=== PATIENT | female | born 1955 | race Caucasian/White ===

== ENCOUNTER 2018-07-19 08:00 | Outpatient (CLI) | payer MEDICAID ==
[2018-07-19 19:00] LABS: BILIRUBIN,URINE NEGATIVE (NEGATIVE); GLUCOSE, URINE (UA) NEGATIVE (NEGATIVE); KETONES,URINE (UA) NEGATIVE (NEGATIVE); LEUKOCYTE ESTERASE, URINE SMALL (NEGATIVE); NITRITE,URINE NEGATIVE (NEGATIVE); OCCULT BLOOD,URINE NEGATIVE (NEGATIVE); PH,URINE 5.5 PH (5.0-7.5); PROTEIN,URINE NEGATIVE (NEGATIVE); UROBILINOGEN,URINE 0.2 (NORMAL) E.U./dL (NORMAL)
[2018-07-19 19:13] LABS: CLARITY,URINE CLOUDY (CLEAR)
[2018-07-19 19:51] LABS: AMORPHOUS SEDIMENT,UR Moderate /LPF; BACTERIA,URINE Few /HPF (None Seen); SQUAMOUS EPITHELIAL CELL,UR FEW Squamous (<= Few)
== END 2018-07-19 23:59 | disposition home or self-care (01) ==
LOC: LAB.R 08:00
PROVIDERS: ATTEND Nurse Practitioner
DX: N39.0 Urinary tract infection, site not specified (principal)
CPT/HCPCS: 81001; 81003; 87086

== ENCOUNTER 2018-07-27 08:00 | Outpatient (CLI) | payer MEDICAID ==
[2018-07-27 19:32] LABS: BILIRUBIN,URINE NEGATIVE (NEGATIVE); GLUCOSE, URINE (UA) NEGATIVE (NEGATIVE); KETONES,URINE (UA) NEGATIVE (NEGATIVE); LEUKOCYTE ESTERASE, URINE NEGATIVE (NEGATIVE); NITRITE,URINE NEGATIVE (NEGATIVE); OCCULT BLOOD,URINE NEGATIVE (NEGATIVE); PH,URINE 5.5 PH (5.0-7.5); PROTEIN,URINE NEGATIVE (NEGATIVE); UROBILINOGEN,URINE 0.2 (NORMAL) E.U./dL (NORMAL)
[2018-07-27 19:33] LABS: CLARITY,URINE CLEAR (CLEAR)
== END 2018-07-27 23:59 | disposition home or self-care (01) ==
LOC: LAB.R 08:00
PROVIDERS: ATTEND Nurse Practitioner
DX: N39.0 Urinary tract infection, site not specified (principal)
CPT/HCPCS: 81001; 81003; 87086

== ENCOUNTER 2018-09-05 08:00 | Outpatient (CLI) | payer MEDICAID ==
[2018-09-05 20:06] LABS: BILIRUBIN,URINE NEGATIVE (NEGATIVE); GLUCOSE, URINE (UA) NEGATIVE (NEGATIVE); KETONES,URINE (UA) NEGATIVE (NEGATIVE); LEUKOCYTE ESTERASE, URINE NEGATIVE (NEGATIVE); NITRITE,URINE NEGATIVE (NEGATIVE); OCCULT BLOOD,URINE NEGATIVE (NEGATIVE); PH,URINE 5.5 PH (5.0-7.5); PROTEIN,URINE NEGATIVE (NEGATIVE); UROBILINOGEN,URINE 0.2 (NORMAL) E.U./dL (NORMAL)
[2018-09-05 20:07] LABS: CLARITY,URINE CLEAR (CLEAR)
== END 2018-09-05 23:59 | disposition home or self-care (01) ==
LOC: LAB.R 08:00
PROVIDERS: ATTEND Physician Assistant
DX: R30.0 Dysuria (principal)
CPT/HCPCS: 81001; 81003; 87086

== ENCOUNTER 2018-09-13 09:46 | Outpatient (CLI) | payer MEDICAID ==
[2018-09-13 12:54] LABS: BASOPHILS # (AUTO) 0.1 10^3/uL (0.0-0.1); BASOPHILS % (AUTO) 1.2 %; EOSINOPHILS # (AUTO) 0.1 10^3/uL (0.0-0.7); EOSINOPHILS % (AUTO) 2.1 %; HGB - HEMOGLOBIN 14.5 g/dL (12.0-16.0); LYMPHOCYTES # (AUTO) 2.6 10^3/uL (1.5-3.5); LYMPHOCYTES % (AUTO) 38.2 %; MEAN CORPUSCULAR HEMOGLOBIN 30.6 pg (27.0-31.0); MEAN CORPUSCULAR HGB CONC 33.4 g/dL (32.0-36.0); MEAN CORPUSCULAR VOLUME 91.6 fL (81.0-99.0); MEAN PLATELET VOLUME 7.8 fL (7.9-10.8); MONOCYTES # (AUTO) 0.7 10^3/uL (0.0-1.0); NEUTROPHILS # (AUTO) 3.4 10^3/uL (1.5-6.6); NEUTROPHILS % (AUTO) 48.5 %; PLT - PLATELET COUNT 392 10^3/uL (130-450); RED BLOOD COUNT 4.73 10^6/uL (4.20-5.40); WHITE BLOOD COUNT 6.9 x10^3/uL (4.8-10.8)
[2018-09-13 13:20] LABS: ALBUMIN 3.7 g/dL (3.2-5.5); ALBUMIN/GLOBULIN RATIO 1.1 (1.0-2.2); ALKALINE PHOSPHATASE 94 IU/L (42-121); ALT ALANINE AMINOTRANSFERASE 16 IU/L (10-60); AST ASPARTATE AMINOTRANSFERASE 25 IU/L (10-42); BILIRUBIN,TOTAL 0.6 mg/dL (0.2-1.0); BUN - BLOOD UREA NITROGEN 11 mg/dL (6-20); CALCIUM 9.4 mg/dL (8.5-10.3); CARBON DIOXIDE - CO2 23 mmol/L (21-32); CHLORIDE 106 mmol/L (101-111); CHOL/HDL RATIO 4.6 (<4.4); CHOLESTEROL 215 mg/dL; CREATININE 0.8 mg/dL (0.4-1.0); GFR - MDRD 73 (>89); GLUCOSE 102 mg/dL (70-100); HDL CHOLESTEROL 47 mg/dL; LDL CHOLESTEROL,CALCULATED 136 mg/dL; LDL/HDL RATIO 2.9 (<4.4); SODIUM 140 mmol/L (135-145); VLDL CHOLESTEROL 32 mg/dL
[2018-09-13 13:36] LABS: HB2 TOTAL 15.1 g/dL; HEMOGLOBIN A1C 0.53 g/dL; HEMOGLOBIN A1C % 5.4 % (4.6-6.2)
== END 2018-09-13 23:59 | disposition home or self-care (01) ==
LOC: LAB.WCP 09:46
PROVIDERS: ATTEND Physician Assistant
DX: Z00.00 Encounter for general adult medical examination without abnormal findings (principal); K50.90 Crohn's disease, unspecified, without complications; Z83.3 Family history of diabetes mellitus
CPT/HCPCS: 36415; 80053; 80061; 83036; 83721; 84443; 85025

== ENCOUNTER 2018-10-12 09:51 | Outpatient (CLI) | payer MEDICAID ==
--- NOTE | 2018-10-12 10:49 | Mammography Report ---
Reason: SCREENING MAMMO Procedure Date: 10/12/2018 Accession Number: [id number] / [id number] Procedure: MGN - Screening Mammo Dig Bilat CPT Code: FULL RESULT: EXAM: Screening Mammo Dig Bilat DATE: 10/12/2018 10:18 AM CLINICAL HISTORY: Screening TECHNIQUE: (B) - Bilateral CC and MLO views were obtained. COMPARISON: None PARENCHYMAL PATTERN: (A) - The breasts demonstrate scattered fibroglandular densities bilaterally. FINDINGS: There are no suspicious masses, calcifications, or areas of distortion. IMPRESSION: Negative examination. BI-RADS category 1. RECOMMENDATION: (ANNUAL) - Recommend routine annual screening mammography. BI-RADS CATEGORY: (1) - Negative. STANDARD QUALIFYING STATEMENTS: 1. This examination was not reviewed with the aid of Computer-Aided Detection (CAD). 2. A negative or benign imaging report should not preclude biopsy if clinically suspicious findings are present. 3. Dense breasts may obscure an underlying neoplasm. 4. This examination was reviewed without the aid of 3D breast imaging (tomosynthesis).
== END 2018-10-12 09:52 | disposition home or self-care (01) ==
LOC: DI.N 09:51
DX: Z12.31 Encounter for screening mammogram for malignant neoplasm of breast (principal)
CPT/HCPCS: 77067

== ENCOUNTER 2018-11-17 10:17 | Outpatient (CLI) | payer MEDICAID ==
--- NOTE | 2018-11-18 08:57 | DEXA Report ---
Reason: POSTMENOPAUSAL Procedure Date: 11/17/2018 Accession Number: [id number] / [id number] Procedure: DEX - Dexa Spine and/or Hip CPT Code: FULL RESULT: EXAM: Dexa Spine and/or Hip DATE: 11/17/2018 10:50 AM CLINICAL HISTORY: POSTMENOPAUSAL TECHNIQUE: Dual energy x-ray absorptiometry (DXA) was performed on a Studio System. Regions measured are the AP Spine, femoral neck, and if needed forearm. COMPARISON: None. In accordance with the International Society for Clinical Densitometry (ISCD) guidelines, data from previous exams may be reanalyzed using current recommendations and techniques. This is done to allow a more accurate basis for comparison with the current study. FINDINGS: The data for the lumbar spine is as follows: BMD (g/cm/cm) T-SCORE Z-SCORE REGION L1 0.950 -1.5 -0.3 L2 1.186 -0.1 1.0 L3 1.307 0.9 2.1 L4 1.339 1.2 2.3 TOTAL 1.210 0.2 1.4 NOTE: All evaluable vertebrae are used for classification The data for the hip is as follows: BMD (g/cm/cm) T-SCORE Z-SCORE REGION Neck 0.972 -0.5 0.7 TOTAL 1.059 0.4 1.3 NOTE: The femoral neck or total proximal femur, whichever is lowest, is used for classification. IMPRESSION: THE WHO CLASSIFICATION BASED ON THE INTERNATIONAL REFERENCE STANDARD IS NORMAL. THE FRACTURE RISK IS NOT INCREASED. RECOMMENDATION: Patients with diagnosis of osteoporosis or osteopenia should have regular bone mineral density assessment. For those eligible for Medicare, routine testing is allowed once every 2 years. Testing frequency can be increased for patients who have rapidly progressing disease or for those who are receiving medical therapy to restore bone mass. COMMENT: World Health Organization (WHO) definitions for osteoporosis and osteopenia: NORMAL BMD: T-score at -1.0 or higher, fracture risk is low OSTEOPENIA BMD: T-score between -1.0 and -2.5, fracture risk is increased. OSTEOPOROSIS BMD: T-score at -2.5 or lower, fracture risk is high. National Osteoporosis Foundation recommends: 1. Obtain adequate dietary calcium (at least 1200 mg per day) and vitamin D (400-800 international units per day). 2. Participate, as appropriate, in regular weightbearing and muscle-strengthening exercise. 3. Avoid tobacco use and reduce alcohol and caffeine intake. 4. For more detailed information see the website at www.NOF.org.
== END 2018-11-17 10:18 | disposition home or self-care (01) ==
LOC: DI 10:17
PROVIDERS: ATTEND Physician Assistant
DX: Z78.0 Asymptomatic menopausal state (principal)
CPT/HCPCS: 77080

== ENCOUNTER 2018-12-13 12:28 | Outpatient (CLI) | payer MEDICAID ==
--- NOTE | 2018-12-14 09:37 | CT Report ---
Reason: COCCYX PAIN Procedure Date: 12/13/2018 Accession Number: [id number] / [id number] Procedure: CT - PELVIS WO CPT Code: FULL RESULT: EXAM: CT BONY PELVIS WITHOUT CONTRAST EXAM DATE: 12/13/2018 12:44 PM. CLINICAL HISTORY: Coccyx pain. COMPARISON: ABDOMEN/PELVIS W/ 05/23/2015 2:52 PM. ABDOMEN/PELVIS W/ 12/31/2014 3:59 PM. TECHNIQUE: Thin-section axial images were acquired of the pelvis without contrast. Post-processing: Coronal and sagittal reformats. Other: None. In accordance with CT protocol optimization, one or more of the following dose reduction techniques were utilized for this exam: automated exposure control, adjustment of mA and/or KV based on patient size, or use of iterative reconstructive technique. FINDINGS: Bones: Severe left and moderate right facet joint arthrosis. Mild facet joint arthrosis. Sacroiliac Joints: No widening, erosions, or sclerosis. Symphysis Pubis: Unremarkable. Right Hip: The joint space is preserved. No calcified loose bodies. Left Hip: The joint space is preserved. No calcified loose bodies. Musculature: Normal. No fatty atrophy. Pelvic Cavity: Increased heterogeneous omental and mesenteric soft tissue left anterior pelvis. Differential considerations include carcinomatosis. This omental soft tissue has developed since the CT 05/23/2015. There is diffuse colon wall thickening suggestive of ulcerative colitis. Negative for diverticulitis. Small umbilical hernia 1.9 cm. Other: No lymphadenopathy. No free air or free fluid. The other visualized soft tissues are unremarkable. IMPRESSION: 1. Negative for sacrum/coccyx fracture or focal metastasis. 2. Increased left lower quadrant and anterior left pelvis omental soft tissue which is new as compared to the CT abdomen and pelvis 05/23/2015. Postsurgical changes versus carcinomatosis. RADIA
== END 2018-12-13 12:29 | disposition home or self-care (01) ==
LOC: DI 12:28
PROVIDERS: ATTEND Physician Assistant
DX: M53.3 Sacrococcygeal disorders, not elsewhere classified (principal)
CPT/HCPCS: 72192

== ENCOUNTER 2018-12-15 09:00 | Outpatient (CLI) | payer MEDICAID | END 2018-12-15 23:59 | disposition home or self-care (01) | LOC: LAB.R 09:00 | PROVIDERS: ATTEND Physician Assistant | DX: A04.72 Enterocolitis due to Clostridium difficile, not specified as recurrent (principal) | CPT/HCPCS: 87493 ==

== ENCOUNTER 2019-03-03 07:00 | Outpatient (CLI) | payer MEDICAID ==
[2019-03-03 13:36] LABS: BASOPHILS % (AUTO) 0.9 %; EOSINOPHILS % (AUTO) 0.6 %; HGB - HEMOGLOBIN 12.4 g/dL (12.0-16.0); LYMPHOCYTES # (AUTO) 1.9 10^3/uL (1.5-3.5); LYMPHOCYTES % (AUTO) 59.8 %; MEAN CORPUSCULAR HEMOGLOBIN 29.7 pg (27.0-31.0); MEAN CORPUSCULAR VOLUME 92.8 fL (81.0-99.0); MEAN PLATELET VOLUME 9.2 fL (7.9-10.8); MONOCYTES # (AUTO) 0.5 10^3/uL (0.0-1.0); MONOCYTES % (AUTO) 16.5 %; NEUTROPHILS # (AUTO) 0.7 10^3/uL (1.5-6.6); NEUTROPHILS % (AUTO) 21.9 %; PLT - PLATELET COUNT 195 10^3/uL (130-450); RED BLOOD COUNT 4.17 10^6/uL (4.20-5.40); RED CELL DISTRIBUTION WIDTH 13.5 % (12.0-15.0); WHITE BLOOD COUNT 3.2 x10^3/uL (4.8-10.8)
== END 2019-03-03 23:59 | disposition home or self-care (01) ==
LOC: LAB.WCP 07:00
PROVIDERS: ATTEND Physician Assistant Medical
DX: C56.9 Malignant neoplasm of unspecified ovary (principal)
CPT/HCPCS: 36415; 85025

== ENCOUNTER 2019-03-24 10:00 | Outpatient (CLI) | payer MEDICAID ==
[2019-03-24 18:39] LABS: BASOPHILS % (AUTO) 0.5 %; EOSINOPHILS % (AUTO) 0.3 %; HGB - HEMOGLOBIN 10.4 g/dL (12.0-16.0); LYMPHOCYTES # (AUTO) 2.1 10^3/uL (1.5-3.5); MEAN CORPUSCULAR HEMOGLOBIN 29.9 pg (27.0-31.0); MEAN CORPUSCULAR HGB CONC 32.5 g/dL (32.0-36.0); MEAN PLATELET VOLUME 9.2 fL (7.9-10.8); MONOCYTES # (AUTO) 0.6 10^3/uL (0.0-1.0); MONOCYTES % (AUTO) 15.8 %; NEUTROPHILS # (AUTO) 1.2 10^3/uL (1.5-6.6); NEUTROPHILS % (AUTO) 30.1 %; PLT - PLATELET COUNT 309 10^3/uL (130-450); RED BLOOD COUNT 3.48 10^6/uL (4.20-5.40); RED CELL DISTRIBUTION WIDTH 15.4 % (12.0-15.0); WHITE BLOOD COUNT 3.9 x10^3/uL (4.8-10.8)
== END 2019-03-24 23:59 | disposition home or self-care (01) ==
LOC: LAB.WCP 10:00
PROVIDERS: ATTEND Nurse Practitioner Women's Health
DX: C56.9 Malignant neoplasm of unspecified ovary (principal)
CPT/HCPCS: 36415; 85025

== ENCOUNTER 2019-08-04 09:10 | Outpatient (CLI) | payer MEDICAID | END 2019-08-04 23:59 | disposition home or self-care (01) | LOC: LAB.WCP 09:10 | PROVIDERS: ATTEND Internal Medicine | DX: K52.9 Noninfective gastroenteritis and colitis, unspecified (principal) | CPT/HCPCS: 81599; 87506 ==

== ENCOUNTER 2019-08-08 09:51 | Outpatient (CLI) | payer MEDICAID | END 2019-08-08 23:59 | disposition home or self-care (01) | LOC: LAB.R 09:51 | PROVIDERS: ATTEND Physician Assistant | DX: A04.72 Enterocolitis due to Clostridium difficile, not specified as recurrent (principal); K52.9 Noninfective gastroenteritis and colitis, unspecified | CPT/HCPCS: 83993; 87493 ==

== ENCOUNTER 2019-09-20 11:00 | Outpatient (CLI) | payer MEDICAID ==
--- NOTE | 2019-09-20 19:01 | CONSULTATION NOTE ---
Palliative Care Consultation - Referral Referring Provider: Jessica St PA-C Time of Visit: Referral setting: Home Referral Reason: Recurrent Ovarian Ca/Goals of Care - Information Sources Records reviewed: Previous records reviewed History/Review of Systems obtained from: Patient Exam limitations: No limitations - History of Present Illness Brief History of Present Illness: This is a rusty 64-year-old woman who has had a long history of Crohn's disease, treated with Humira up until her cancer diagnosis. She been having increasing abdominal pain, and without significant findings on colonoscopy. 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 She has since undergone in April 2019, a debulking surgery which included exploratory laparotomy, omentectomy, bilateral salpingo-oophorectomy, and argon beam ablation. She did complete carboplatinum and paclitaxel, and did fairly well, no residual peripheral neuropathy, only persistant nausea and fatigue. She most recently was started on a parp inhibitor, niraparib this last week, has had continued nausea in am and fatigue, and intermittent headaches. Patient overall is still having moderate symptom burden, she has pain 5 out of 10, describes this in her left upper quadrant, this is been fairly persistent through her experience with her cancer. Of note she does have a lymph node on the gastric curvature 1.3 x 1.1 cm as well as multiple known peritoneal implants. There is no fluctuation, and pain levels, She has taken oxycodone in the past, did not find this effective, though I suspect it was not at a high enough dose, she is currently trying tramadol, this is a new prescription for her. 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 She is taking her niraparib at bedtime. Patient does understand her treatment is palliative in nature, she is unclear exactly her prognosis, but has done some "research". We did discuss in the context of the new landscape with parp inhibitors, it is extending the curve in some patients for not only impact on quantity of life, but quality as well. She has done very little prep work as far as advanced care planning, we initiated discussion in this context today. Medical/Surgical History - Past Medical History Cardiovascular: reports: None Respiratory: reports: Shortness of breath Neuro: Headaches Endocrine/Autoimmune: reports: None GI: reports: Colon polyps, C.difficile, Chronic diarrhea, Hemorrhoids, Crohn's disease COMMERCIAL PILOT: reports: Ovarian cancer : reports: None HEENT: reports: None Psych: reports: Depression Musculoskeletal: reports: Rheumatoid arthritis, Chronic back pain Derm: reports: None MRSA Hx?: No - Past Surgical History General: reports: Colonoscopy /COMMERCIAL PILOT: reports: Tubal ligation, Hysterectomy, Oophrectomy, Other (debulking) Cardiovascular: reports: Other (portacath) HEENT: reports: Tonsil/Adenoidectomy - Substance History Use: Uses substance without health or social issues: NONE Social History - Living Situation Living arrangement: At home Living Situation: With spouse/s.o. Support System: Patient lives at home with her significant other Willie Cowan, they have been together for 15 years. They have a small forearm. She does have a son in [place], and has a sister Amy who is been very supportive and has stage for her through her chemo regimens. She also has a sister who is an RN down at [employer] [facility] [employer] and is support for her as well. 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 Family History - Family History Family History: Mother: (mother at 71; dad at 85), Asthma, Cancer (lung cancer), Father: , CAD, Cancer, COPD/Emphysema Medications/Allergies - Medications Home Medications: Ambulatory Orders Medication Instructions Recorded Confirmed Multivitamin [Multivitamins] 1 cap PO DAILY 08/16/15 09/21/19 Zolpidem [Ambien] 5 mg PO QPM 09/21/19 09/21/19 Acetaminophen [Tylenol] 650 mg PO Q8HR PRN 09/22/19 09/22/19 Niraparib Tosylate [Zejula] 300 mg PO QPM 09/22/19 09/22/19 Ondansetron [Zuplenz] 4 mg PO Q8HR PRN 09/22/19 09/22/19 Prochlorperazine Maleate 10 mg PO Q6HR PRN 09/22/19 09/22/19 Senna [Senokot] 8.6 mg PO BID PRN 09/22/19 09/22/19 Sertraline HCl 200 mg PO DAILY 09/22/19 09/22/19 polyethylene glycoL 3350 [Miralax] 17 gm PO DAILY PRN 09/22/19 09/22/19 traMADol [Ultram] 50 mg PO Q4HR PRN 09/22/19 09/22/19 - Allergies Allergies/Adverse Reactions: Allergies Allergy/AdvReac Type Severity Reaction Status Date / Time No Known Drug Allergies Allergy Verified 03/10/15 05:43 Review of Systems - Constitutional Constitutional: reports: Fatigue, Night sweats, Weight loss (about 20 pounds 157-163 current fluctuation) - Eyes Eyes: reports: Vision loss, Corrective lenses - Ears, Nose & Throat Ears, Nose & Throat: reports: Dry mouth. denies: Mouth lesions - Cardiovascular Cardiovascular: reports: Decr. exercise tolerance. denies: Edema - Respiratory Respiratory: reports: SOB with exertion. denies: SOB at rest - Gastrointestinal Gastrointestinal: reports: Abdominal pain, Constipation (with pain meds), Diarrhea (baseline related to crohns), Nausea (persistant worse in am), Good appetite. denies: Vomiting, Reflux/heartburn - Genitourinary Genitourinary: denies: Incontinence - Musculoskeletal Musculoskeletal: reports: Muscle weakness - Integumentary Integumentary: reports: Dryness, Hair changes (alopecia) - Neurological Neurological: reports: Headache (intermittent few times a week), Memory problems (self report). denies: Numbness - Psychiatric Psychiatric: reports: Depression (currently treated). denies: Anxiety - Endocrine Endocrine: denies: Diabetes type 2, Hypothyroidism - Hematologic/Lymphatic Hematologic/Lymphatic: reports: Anemia. denies: Blood clots, Recurrent infections - All Other Systems All Other Systems: reports: Reviewed and negative Physical Exam - Vital Signs Temperature: 96.5 C Pulse Rate: 96 Respiratory Rate: 18 O2 Saturation: 97 (ra @ rest) Blood Pressure: 112/72 - Physical Exam General Appearance: positive: No acute distress, Alert Eyes Bilateral: positive: Normal inspection ENT: positive: No signs of dehydration. negative: Oral lesions Neck: positive: Trachea midline Cardiovascular: positive: Regular rate & rhythm Respiratory: positive: No respiratory distress, Breath sounds nml Abdomen: positive: Soft, Tenderness. negative: Taut Skin: positive: Pallor, Dryness, Other (alopecia) Extremities: positive: Full ROM, Nml appearance, No pedal edema Neurologic/Psychiatric: positive: Oriented x3, Mood/affect nml Palliative Care - POLST Patient has POLST: No POLST Status: Full Code (introduced the POLST) Pain: Pain unchanged, Location (persistent left upper quadrant; intermittent use of tramadol) Tiredness/Fatigue: Moderate (4-6) Drowsiness/Sedation: Mild (1-3) Nausea: Moderate (4-6) Anorexia: None Dyspnea: None Depression: None Anxiety: None Feelings of wellbeing/Perceived Quality of Life: Good, Acceptable, Improved Sleep: Variable sleep pattern (uses sleep aids) Constipation: Intermittent constipation (new with opioids) Performance Status: Patient has noticed worsening fatigue, and poor activity tolerance. She is able to manage her own ADLs, and some gardening. She would like to have little more energy, but does recognize this may be her "new normal." - Palliative Care Discussion: Patient does recognize the seriousness of her illness, she understands her prognosis is most likely measured in months to years. She has not really embarked on any kind of advanced care planning, she does have a complex living situation and that she and her partner are not . She has a rusty supportive family, but as with most families, there are complexities. She does feel supported, but is enjoying some quiet time. Her sister has been there to help support her through her chemotherapy. We did discuss in the context of what is most important as a priority, would recommend and given her a form for D [employer]. Given the complexity of her estate planning, would recommend she get a consultation sooner than later, and we did introduce what her concerns were regarding living with serious illness and end-of-life. She would hope at end-of-life she was able to have a at home with family support. She currently is hoping for better quality of life, she does present with moderate symptom burden, counseling provided regarding the role of palliative care and assisting with support of these goals. She has appropriate anxiety regarding living with serious illness, and concerns for progressive decline. 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 Patient is currently on parp inhibitor, which is new for her. She presents with moderate symptom burden, good functional status, and appropriate anxiety regarding living with serious illness. Palliative care to provide support for pain and symptom management and anticipatory guidance. Recommendations/Counseling Done: 1. Pain of neoplastic origin. Patient has been trialed on oxycodone, she did not perceive it as effective. Most likely was on too low of a dose, she is currently trialing tramadol. Would like to continue this, but we did discuss and provided counseling regarding principles of pain management, if patient has continuous persistent pain, would most likely benefit from a longer acting medication. If she will be taking for Aloxi and or 4 tramadol in 24 hours, would be appropriate to transition her to fentanyl 12 mcg patch. She is somewhat adverse to pills, and this may be a attractive option for her. We will continue to monitor her pain and consider in the future. 2. Constipation. This is opioid induced, patient most often has loose/diarrhea stool secondary to her long-term Crohn's disease. Counseling provided regarding concerns for high risk for obstruction, need to have a regular soft BM daily. Provided counseling regarding MiraLAX as "mesh", and senna as "push", teaching given for titration. 3. Nausea. This is been fairly persistent to her chemotherapy, currently taking her Parp inhibitor at bedtime. Her most persistent/acute time is in a.m. We did discuss taking her prochlorperazine, CBC/THC in juice (dislikes taste) at bedtime and ondansetron in a.m. She has had no vomiting. We will try and change of her antiemetic regimen to see if can have better control and minimize medications. 4. Fatigue. This is most likely multifactorial. We did discuss in the context if taking the prochlorperazine at bedtime, and not taking in a.m. may help with this. She is able to pace her activities, we will continue to monitor. Encourage her to continue though to walk and keep active. 5. Anxiety. Patient expressing normal feelings of grief and loss, concerns for the future, counseling provided to normalize. 6. Advanced care planning. Introduced advanced care planning documents, ways to prepare for end-of-life, as well as addressed questions and concerns regarding the continuum of care. Time Spent: 75 minutes with greater than 50% of this done in counseling regarding pain and symptom management, goals of care, anticipatory guidance, role of palliative care and introduction for setting of rapport
== END 2019-09-20 11:01 | disposition home or self-care (01) ==
LOC: PC 11:00
PROVIDERS: ATTEND Nurse Practitioner Adult Health
DX: Z51.5 Encounter for palliative care (principal); G89.3 Neoplasm related pain (acute) (chronic); F41.9 Anxiety disorder, unspecified; K50.90 Crohn's disease, unspecified, without complications; K59.03 Drug induced constipation; T40.2X5A Adverse effect of other opioids, initial encounter; R53.83 Other fatigue; R11.0 Nausea; T45.1X5A Adverse effect of antineoplastic and immunosuppressive drugs, initial encounter; C79.9 Secondary malignant neoplasm of unspecified site; C56.9 Malignant neoplasm of unspecified ovary; Z79.899 Other long term (current) drug therapy; Z79.891 Long term (current) use of opiate analgesic
CPT/HCPCS: 99345

== ENCOUNTER 2019-10-04 15:38 | Outpatient (CLI) | payer MEDICAID ==
--- NOTE | 2019-10-04 15:54 | CONSULTATION NOTE ---
Palliative Care Follow Up - Referral Referring Provider: Jessica St PA-C Time of Visit: 3085-1401 Referral setting: Home Referral Reason: Anxiety/Dyspnea/Recurrent Ovarian CA - Information Sources Records reviewed: Previous records reviewed History/Review of Systems obtained from: Patient Exam limitations: No limitations - History of Present Illness Update Brief HPI Update: This is a rusty 64-year-old woman who has a long history of Crohn's disease, treated with Humira up until her cancer diagnosis. She been having increasing abdominal pain and without significant findings on colonoscopy 10/2018. 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 She did complete carboplatinum and paclitaxel, did fairly well with no residual peripheral neuropathy, only persistent nausea and fatigue. She has most recently been started on parp inhibitor, niraparib this last month, and had been having some difficulty with nausea and fatigue and intermittent headaches when last seen on 09/20/2019. Patient had been having left upper quadrant pain, this is since resolved. She has not needed tramadol for a week and a half. Of note she does have a lymph node on the gastric curvature 1.3 x 1.1 cm well as multiple known peritoneal implants where pain had manifested previously. She has developed over the last week and a half, increasing shortness of breath, poor activity tolerance, reports over the last several days having increased anxiety and "panic attacks". Where she has had to stop and take frequent rest periods, has had worsening hot flashes, and has felt poorly overall without any identified underlying etiology. On exam what is of concern is her baseline pulse rate is about 108, her sats are 98% at rest, blood pressure 132/84. Did have her walk about 50 feet, pulse went up to 132, sats down to 92%, significantly increased respiratory effort and discomfort, as well as it took 3 to 4 minutes to recover. Patient's baseline activity is been able to ambulate without any problems, work in her yard and garden, though had needed frequent rest periods and had fatigue, nothing to this severity. Patient's breath sounds are clear, no crackles wheezes or rhonchi. Patient's most recent labs without any increase in anemia, but did drop to were her platelets 57,000. Social History - Living Situation Living arrangement: At home Living Situation: With spouse/s.o. Support System: Patient lives on [place], she has lots of gardening, and land to attend to. She is currently retired, she lives with her significant other. 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 Medications/Allergies - Medications Home Medications: Ambulatory Orders Medication Instructions Recorded Confirmed Multivitamin [Multivitamins] 1 cap PO DAILY 08/16/15 10/04/19 Zolpidem [Ambien] 5 mg PO QPM 09/21/19 10/04/19 Acetaminophen [Tylenol] 650 mg PO Q8HR PRN 09/22/19 10/04/19 Niraparib Tosylate [Zejula] 300 mg PO QPM MDD HOLD 10/0209/22/19 10/04/19 Ondansetron [Zuplenz] 4 mg PO Q8HR PRN 09/22/19 10/04/19 Prochlorperazine Maleate 10 mg PO Q6HR PRN 09/22/19 10/04/19 Senna [Senokot] 8.6 mg PO BID PRN 09/22/19 10/04/19 Sertraline HCl 150 mg PO DAILY MDD tapering off 09/22/19 10/04/19 polyethylene glycoL 3350 [Miralax] 17 gm PO DAILY PRN 09/22/19 10/04/19 traMADol [Ultram] 50 mg PO Q4HR PRN 09/22/19 10/04/19 Alprazolam [Xanax] 0.25 mg PO Q6HR PRN MDD 3 tabs 10/04/19 10/04/19 Venlafaxine ER [Effexor ER] 37.5 mg PO DAILY MDD start with 10/04/19 10/04/19 sertraline taper - Allergies Allergies/Adverse Reactions: Allergies Allergy/AdvReac Type Severity Reaction Status Date / Time No Known Drug Allergies Allergy Verified 03/10/15 05:43 Review of Systems - Constitutional Constitutional: reports: Fatigue (worsening; poor activity tolerance), Weakness, Weight stable - Ears, Nose & Throat Ears, Nose & Throat: reports: Nosebleeds (has had for several months when mowing lawn mostly), Postnasal drainage - Cardiovascular Cardiovascular: reports: Palpitations, Lightheadedness, Exertional dyspnea, Decr. exercise tolerance - Respiratory Respiratory: reports: SOB at rest, SOB with exertion. denies: Cough, Sputum production, Wheezing - Gastrointestinal Gastrointestinal: reports: Nausea (better with rescheduling of antiemetics), Good appetite. denies: Abdominal pain, Constipation (resolved with implementation of miralax) - Musculoskeletal Musculoskeletal: reports: Muscle weakness - Integumentary Integumentary: reports: Pruritis (new symptom), Dryness - Neurological Neurological: reports: General weakness, Memory problems ("chemo brain"; no issues noted on exam) - Psychiatric Psychiatric: reports: Anxiety (reports panic attacks; worsening up 8 x a day) - Endocrine Endocrine: reports: Intolerance to cold (worsening) - Hematologic/Lymphatic Hematologic/Lymphatic: reports: Anemia (stable), Other (new thrombocytopenia;) - All Other Systems All Other Systems: reports: Reviewed and negative Physical Exam - Vital Signs Temperature: 97.0 C Pulse Rate: 108 (activity 132) Respiratory Rate: 18 (28) O2 Saturation: 98 (92 amb 50 ft) Blood Pressure: 132/84 - Physical Exam General Appearance: positive: Alert, Mild distress, Anxious Eyes Bilateral: positive: Normal inspection ENT: positive: No signs of dehydration. negative: Pharyngeal erythema, Oral lesions Neck: positive: Trachea midline Cardiovascular: positive: Tachycardia Respiratory: negative: No respiratory distress (increase respiratory effort and breathlessness with min. activity), Wheezes, Rales, Rhonchi Abdomen: positive: Non-tender, Soft Skin: positive: Pallor, Dryness, Pruritis. negative: Rash Extremities: negative: No pedal edema Neurologic/Psychiatric: positive: Oriented x3, Mood/affect nml, Weakness (worsening/new) Palliative Care - POLST Patient has POLST: No POLST Status: DNR (discussed patient's wishes; POLST to be completed but with s/o input first; DNAR/Selected tx/ab for symptom management/no medical nutrition) Pain: No pain, Pain improved Tiredness/Fatigue: Severe (7-10) Drowsiness/Sedation: Moderate (4-6) Nausea: Mild (1-3) (improved) Anorexia: None Dyspnea: Severe (7-10) (with activity; manageable at rest but worsening over week) Depression: Mild (1-3) Anxiety: Severe (7-10) (reports new panic attacks;) Feelings of wellbeing/Perceived Quality of Life: Fair, Acceptable Sleep: Sleeps well Constipation: Yes, Managed Performance Status: Patient's baseline, is usually independent in ADLs. She has had to slow down her usual very active schedule. This last week and a half she has had severe deterioration in her activity tolerance, with frequent rest periods with any kind of ambulation, has found this very exasperating and a fairly sudden change. - Palliative Care Discussion: Patient does understand the seriousness of her illness, that her treatment is palliative in nature. She is hoping for the best, but also is somewhat realistic. She did go through end-of-life care with her mother and father, does not want to extend her suffering or put her family through unnecessary burdens. She did fill out her DPOAE, with wrong her as though is primary [phone]. She has her sisters as backup. She has been working out 5 wishes, we did discuss in context of these decisions that it is information that is most helpful for those who are D POA and may need to assist with decision-making. Patient is quite clear she would want to be a DNR R, introduced and reviewed the POLST. After much discussion, she feels it would meet her goals to have DNA R/selective treatments. She would accept intervention for reversible conditions, but does not want to in the hospital or have prolong suffering. She will talk this over with Willie, and we can completed at our next meeting. She does know she wants to be cremated, was able to have some of these conversations with her family and S/O. Introduced [facility] [employer] [facility] [employer] as a resource particularly in the context of financial stressors. Patient is having some acute signs, but is finding overall though it complicated to adjust to a "new normal". She does plan to talk to her oncologist, furthermore about prognostication. We did discuss in the context of the new world, with PA RP inhibitors we do not often have good data, because it has been good data in extending quantity as well as improving quality of life. 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 She is currently on a PA RP inhibitor, which is on hold related to her thrombocytopenia. She presents today with concern for differential diagnosis including PE, pneumonitis, her concerns for cardiac issues with her acute onset of symptomology. Palliative care to continue to provide support for pain and symptom management and anticipatory guidance. Recommendations/Counseling Done: 1. Dyspnea. This is multifactorial, concern and patient's high risk for sequela of PE, also noted side effect of PA RP inhibitors his pneumonitis. This is a fairly acute change from last week as far as her tachycardia, dyspnea, and poor activity tolerance. Did reach out to oncology team, spoke with both RN and PA, in agreement to send her in for evaluation. Patient prefers to go [facility], report was called to ED in preparation for follow-up. 2. Anxiety. This may be exacerbated by her current underlying condition. We did discuss though in the context of looking at treating this, can switch from her sertraline to venlafaxine. She is quite distressed with these "panic attacks", will await outcome of ED visit, but also consider short-term Xanax 0.25 mg until transition to new medication completed for rescue dosing. We will proceed with planned depending on findings this evening. 3. Pain of neoplastic origin. Patient's pain is actually resolved, she is quite pleased with this. She has not needed to be on the tramadol for over a week and a half, will continue to monitor. 4. Nausea. This is been fairly persistent in her chemotherapy, we did rearrange some of her antiemetic approach. She is taking ondansetron in the a.m., and prochlorperazine at night with good effect. 5. Constipation. Patient's current bowel program with the addition of MiraLAX has improved her management. She is quite pleased, and no further issues this last couple weeks. 6. Advanced care planning. Patient did complete her D POA, counseling discussion regarding 5 wishes and living will, also recommended complete her well if she is not as well as financial D POA. We also discussed plans. Counseling provided regaining the POLST, she will discuss with her S/O and we will completed next visit.Her goals remain though to focus on quality of life, spending time with friends and family, and end-of-life a comfortable respectful at home. Patient will continue on treatment until no longer feels of benefit, currently even with side effects, is still engaged in getting both quantity and quality of life out of her treatment regimen. Time Spent: 60 minutes with greater than 50% of this done in counseling regarding goals of care, addressing symptom management, coordination of care with her oncology team and anticipatory guidance
== END 2019-10-04 15:39 | disposition home or self-care (01) ==
LOC: PC 15:38
PROVIDERS: ATTEND Nurse Practitioner Adult Health
DX: Z51.5 Encounter for palliative care (principal); R53.83 Other fatigue; R11.0 Nausea; T45.1X5D Adverse effect of antineoplastic and immunosuppressive drugs, subsequent encounter; G89.3 Neoplasm related pain (acute) (chronic); R53.1 Weakness; K59.00 Constipation, unspecified; R06.02 Shortness of breath; R00.0 Tachycardia, unspecified; F41.9 Anxiety disorder, unspecified; C56.9 Malignant neoplasm of unspecified ovary; Z79.899 Other long term (current) drug therapy
CPT/HCPCS: 99350

== ENCOUNTER 2019-10-18 15:30 | Outpatient (CLI) | payer MEDICAID ==
--- NOTE | 2019-10-18 18:09 | CONSULTATION NOTE ---
Palliative Care Follow Up - Referral Referring Provider: Jessica St PA-C Time of Visit: 1231-1117 Referral setting: Home Referral Reason: Anxiety/Recurrent Ovarian Ca - Information Sources Records reviewed: Previous records reviewed History/Review of Systems obtained from: Patient Exam limitations: No limitations - History of Present Illness Update Brief HPI Update: This is a rusty 64-year-old woman with stage IIIc high-grade serous fallopian tube cancer, who has undergone 04/2019 a debulking surgery which included exploratory laparotomy, omentectomy, bilateral salpingo-oophorectomy, and argon beam ablation. She has completed carboplatinum and paclitaxel, and had been started on a parp inhibitor, unfortunately caused a significant drop in her platelets. She had received on 10/08 a platelet infusion, with increased from 12,000, 2 on 611 106,000, but she remains quite anxious regarding this. It is c urrently on hold, and she is due to have CT scan 11/01 as well as labs and follow- up with oncology to decide next steps. Unfortunately in the meantime, when I saw her last time she is having significan t shortness of breath, tachycardia, and given concern for PE was sent to the ED. It did not show any significant findings other than a precipitous drop in her platelet count, recommendation for echo which unfortunately still has not happened, as well as an elevated d-dimer. Her CT scan showed no pulmonary embolus but fatty atrophy of the cardiac, but this had been redemonstrated from May. Patient today reports she has had intermittent chest discomfort, but has not been sustained. Above and right around sternum, unclear GERD or cardiac in nature. Call to follow-up on echo, with more urgent need. Other concern is patient did have 2 or 3 days of lower extremity swelling, particularly in the right, unfortunately on today's exam there might be a little swelling in her ankle, but no residual. My understanding that she was to get a duplex lower extremity to rule out any other concerns for her high d-dimer, but this has not happened as well. I did call from the home, to speak with PCP Jessica St PA-C, she is in agreement to put this through urgently, and update given on concerns. Patient has been counseled if recurrent lower extremity swelling, pain and legs or calf, recurrent chest pain or discomfort, or worsening symptoms of concern she is to access the ED. We will go ahead and get labs given her concerns for her platelets, as well as a repeat d-dimer. Patient has been titrated from sertraline to Effexor, she is just finishing her she has found the Xanax quite helpful in the context of preventing further panic attacks. She is taking 1 in the morning, and about a half in the afternoon. Her pain of her left upper quadrant had resolved, now reports is starting to have increased discomfort and pressure there as well. She is not taking her niraparib currently, so nausea is been improved. She does continue with severe fatigue, activity intolerance, and intermittent breathlessness though not as bad as 2 weeks ago. Social History - Living Situation Living arrangement: At home Living Situation: With spouse/s.o. Support System: Patient lives at home with her significant other. Her sister is coming back to provide ongoing support for both transportation and psychosocial. She currently is independent, and is quite frustrated with her inability to do much with her activity intolerance. Patient was quite active in the gardening community, and misses being able to do more. Medications/Allergies - Medications Home Medications: Ambulatory Orders Medication Instructions Recorded Confirmed Multivitamin [Multivitamins] 1 cap PO DAILY 08/16/15 10/18/19 Zolpidem [Ambien] 5 - 10 mg PO QPM 09/21/19 10/18/19 Acetaminophen [Tylenol] 650 mg PO Q8HR PRN 09/22/19 10/18/19 Niraparib Tosylate [Zejula] 300 mg PO QPM MDD HOLD 10/0209/22/19 10/18/19 Ondansetron [Zuplenz] 4 mg PO Q8HR PRN 09/22/19 10/18/19 Prochlorperazine Maleate 10 mg PO Q6HR PRN 09/22/19 10/18/19 Senna [Senokot] 8.6 mg PO BID PRN 09/22/19 10/18/19 polyethylene glycoL 3350 [Miralax] 17 gm PO DAILY PRN 09/22/19 10/18/19 traMADol [Ultram] 50 mg PO Q4HR PRN 09/22/19 10/18/19 Alprazolam [Xanax] 0.25 mg PO Q6HR PRN MDD 3 tabs 10/04/19 10/18/19 Venlafaxine ER [Effexor ER] 37.5 mg PO DAILY MDD 75 mg 10/04/19 10/18/19 - Allergies Allergies/Adverse Reactions: Allergies Allergy/AdvReac Type Severity Reaction Status Date / Time No Known Drug Allergies Allergy Verified 03/10/15 05:43 Review of Systems - Constitutional Constitutional: reports: Fatigue, Weight stable - Eyes Eyes: reports: Vision loss, Other (was to have surgery for glaucoma/cataracts currently on hold) - Ears, Nose & Throat Ears, Nose & Throat: reports: Nasal congestion - Cardiovascular Cardiovascular: reports: Chest pain (some chest heaviness episodes; not brought on by activity; none last few days; does not think GERD but just at sternal notch), Exertional dyspnea, Decr. exercise tolerance - Respiratory Respiratory: reports: SOB at rest (intermittent), SOB with exertion. denies: Cough, Wheezing - Gastrointestinal Gastrointestinal: reports: Good appetite. denies: Constipation, Diarrhea, Nausea (improved is going to try titrating off to see if going off for now), Reflux/heartburn - Musculoskeletal Musculoskeletal: reports: Stiffness, Muscle weakness - Integumentary Integumentary: reports: Dryness - Neurological Neurological: reports: General weakness (poor activity tolerance), Numbness (right toes; new) - Psychiatric Psychiatric: reports: Depression, Anxiety - Hematologic/Lymphatic Hematologic/Lymphatic: reports: Anemia. denies: Petechiae (resolved) - All Other Systems All Other Systems: reports: Reviewed and negative Physical Exam - Vital Signs Temperature: 95.8 C Pulse Rate: 98 (112 with activity) Respiratory Rate: 18 O2 Saturation: 99 (ra@rest 99% with activty) Blood Pressure: 138/72 - Physical Exam General Appearance: positive: Alert Eyes Bilateral: positive: Normal inspection ENT: positive: No signs of dehydration Neck: positive: Trachea midline Cardiovascular: positive: Regular rate & rhythm Respiratory: positive: Diminished in bases. negative: No respiratory distress (increased resp effort and breathlessness with activity), Wheezes, Rales, Rhonchi Abdomen: positive: Soft, Nml bowel sounds, Tenderness (left upper quadrant) Skin: positive: Dryness Extremities: positive: No pedal edema (reports had swelling a couple of days ago for about 48 hours; none noted now) Neurologic/Psychiatric: positive: Oriented x3, Mood/affect nml Palliative Care - POLST Patient has POLST: No POLST Status: DNR (patient wants DNR/POLST discussed but not completed) Pain: Pain worsening, Location (had resolved; now recurrent left upper quadrant; no med needed so far) Tiredness/Fatigue: Moderate (4-6) Drowsiness/Sedation: Moderate (4-6) Nausea: Mild (1-3) Anorexia: Mild (1-3) Dyspnea: Moderate (4-6) Depression: Mild (1-3) Anxiety: Moderate (4-6) (improved; no further panic attacks) Feelings of wellbeing/Perceived Quality of Life: Fair, Acceptable, Worsening Sleep: Sleeps well Constipation: Yes, Managed Performance Status: Patient is independent in her ADLs, but still presents with severe activity intolerance. She does need frequent rest periods with ambulation, has found this exasperating but somewhat improved from our last meeting 2 weeks ago. - Palliative Care Discussion: Patient is concerned she continues to feel poorly, wondering about treatment options and the future. She does feel her family does not take this seriously, always wants her to be positive. We did discuss ways to communicate this including hoping for the best, but worried about her current situation, and wanting to acknowledge and prioritize time with family and important conversations. Her sister is coming to visit, is to have a hip replacement. She finds this both supporting and also with some anxiety. She has been working on her well, and other advanced care planning documents. She has been talking with her partner Willie, is awaiting next CT scan to further define goals of care. We have spoken about the POLST, she was part of both of her parents decline and . She is familiar with hospice and would want that for herself at home. 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 She continues with symptoms of concern, relating to high risk of hypercoagulability. Follow-up needed more urgently, given fluctuating symptoms. Palliative care assisting with coordination of care, management of symptoms, and anticipatory guidance. Recommendations/Counseling Done: 1.History of lower extremity swelling. Patient currently does not present with any lower extremity swelling, but had persistent swelling for 2 to 3 days on right side now resolved for several days. No pain, areas of redness or erythema. Some small vein prominence and foot only, call and follow-up with PCP Geno st PA-C to get urgent Doppler studies ordered, had understood oncology ANALYSIS CONSULTANT was to coordinate with her no notes in their records, she will put it in today. Counseling provided to patient regarding signs or symptoms of to recur, worsens, or any increased concern she is to go to the ED for evaluation, patient verbalizes understanding.Will make arrangements to have d-dimer drawn at labs tomorrow. 2. Anxiety. Patient is doing well and transition from sertraline to Effexor, did add Xanax 0.25 mg up to 3 times daily. For rescue dosing. Patient has been using 1 tab in the a.m., has kept "panicky feeling" down to the day, does repeat half tab if needed in the afternoon. Feels she is feeling better overall regarding this and hopeful to be able to titrate off with full dosing of Effexor. Counseling provided regarding normalizing feelings of uncertainty and concern, as well as support around family stressors. 3. Pain of neoplastic origin. Patient does have some recurrent left upper quadrant pain, not to the threshold needing any medication, though this does increase her concern, she is due to have a scan on 11/01. We will continue to monitor, can reinitiate tramadol if needed. 4. Dyspnea. This is multifactorial, does report there is some improvement with this. She still has tachycardia with activity, dyspnea with increased ambulation, and poor overall activity tolerance. Patient did rule out for PE on 3. She has had some intermittent chest heaviness, call to follow-up on echo, will put in more urgently unclear of reason for delay. 5. Thrombocytopenia. Patient's last labs showed some improvement, patient remains quite anxious regarding this. Given patient's ongoing issues, will go ahead and arrange for CBC and d-dimer to be drawn tomorrow for follow-up. 6. Advanced care planning. Patient has been talking with family, and particularly partner Willie. She is working through advanced care planning documents, putting her will together, discussion regarding concerns of her communication and family acknowledging the seriousness of her illness. 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 She would very much like to be at home, and would like to continue to move forward putting documents in place. Her short-term goals are to feel much better, hopefully identify the underlying etiology of her ongoing symptoms. She would like to be able to be more active and functional, she is hoping to be able to resume therapy and get a sense overall where she is at. She does feel it woul d be helpful to have more information on her prognosis. We discussed often you need to have several time points, to compare, and she will be having her scan on 11/01 so can review this again with oncology team. Time Spent: 65 minutes with greater than 50% of this done in counseling regarding advanced care planning, pain and symptom management, management of anxiety, anticipatory guidance, as well as coordination with PCP for urgent testing
== END 2019-10-18 15:31 | disposition home or self-care (01) ==
LOC: PC 15:30
PROVIDERS: ATTEND Nurse Practitioner Adult Health
DX: Z51.5 Encounter for palliative care (principal); G89.3 Neoplasm related pain (acute) (chronic); R06.00 Dyspnea, unspecified; D69.6 Thrombocytopenia, unspecified; R07.89 Other chest pain; R00.0 Tachycardia, unspecified; R60.0 Localized edema; F41.9 Anxiety disorder, unspecified; R53.83 Other fatigue; R53.1 Weakness; C79.9 Secondary malignant neoplasm of unspecified site; C57.00 Malignant neoplasm of unspecified fallopian tube; Z79.899 Other long term (current) drug therapy
CPT/HCPCS: 99350

== ENCOUNTER 2019-11-09 16:35 | Outpatient (CLI) | payer MEDICAID ==
--- NOTE | 2019-11-09 19:59 | CONSULTATION NOTE ---
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 She did receive originally 01/30/2019 neoadjuvant therapy of carboplatinum and paclitaxel, with surgery in 04/2019 with exploratory lap BSO, omentectomy, QUINTIN, and excision of abdominal wall tumor. She received adjuvant therapy, for completion of 8 cycles, and currently is on Niraparib, but had been held for side effects and thrombocytopenia. She has restarted on a lower dose, unfortunately she is starting to have similar side effects, a persistent headache, nosebleeds, and is due for labs next week. Palliative care is seeing patient for symptom burden, her most persistent and si gnificant symptom has been her anxiety. She has been transition from sertraline, to been Venlafaxine, with some improvement but is using alprazolam on 0.25 mg 1-2 tabs in the a.m., and 1 tab in the p.m. for breakthrough anxiety. These are of consistency at sometimes escalating to panic attacks, though these have been better since initiating Xanax. She is also having hot flashes, that can be quite drenching, and overwhelming. We will go ahead and increase her venlafaxine from 75 mg to 75 mg twice daily, and consider titration further if needed. Patient is somewhat disappointed in the fact her symptoms are returning, she continues with severe fatigue, though not with the significant breathlessness that she had before. She does have intermittent left upper quadrant pain, that is controlled with tramadol, she takes this may be every other day. She does have a pending appointment for cataract surgery,. She will be starting drops. She does find her insomnia currently is controlled with zolpidem and 7.5 mg at bedtime. She has not had any further respiratory distress, tachycardia is still intermittent, but without fluttering, and no recurrent lower extremity edema. She does present with some abdominal distention, she has been eating better, but and suspicious for possible ascites reaccumulation. We are meeting today with her sister, patient did want to finish her advance car e planning, we did talk about goals today as well as complete the POLST. Social History - Living Situation Living arrangement: At home Living Situation: With spouse/s.o. 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 She is currently much more limited, but still tries to assist with maintenance. She is concerned regarding her partner as not wanting to acknowledge her serious illness. She does have her sister, who is here to provide support, she finds this somewhat overwhelming at times. Her sister is to have hip surgery, and she will be providing support for her in her home. She has 2 other sisters, whom they will be getting together this weekend has somewhat of a family reunion. Medications/Allergies - Medications Home Medications: Ambulatory Orders Medication Instructions Recorded Confirmed Multivitamin [Multivitamins] 1 cap PO DAILY 08/16/15 11/09/19 Zolpidem [Ambien] 7.5 mg PO QPM 09/21/19 11/09/19 Acetaminophen [Tylenol] 650 mg PO Q8HR PRN 09/22/19 11/09/19 Niraparib Tosylate [Zejula] 200 mg PO QPM MDD HOLD 10/0209/22/19 11/09/19 Ondansetron [Zuplenz] 4 mg PO Q8HR PRN 09/22/19 11/09/19 Prochlorperazine Maleate 10 mg PO Q6HR PRN 09/22/19 11/09/19 Senna [Senokot] 8.6 mg PO BID PRN 09/22/19 11/09/19 polyethylene glycoL 3350 [Miralax] 17 gm PO DAILY PRN 09/22/19 11/09/19 traMADol [Ultram] 50 mg PO Q4HR PRN 09/22/19 11/09/19 Alprazolam [Xanax] 0.25 - 0.5 mg PO Q6HR PRN MDD 6 10/04/19 11/09/19 Venlafaxine HCl [Venlafaxine HCl 75 mg PO BID 11/09/19 11/09/19 ER] - Allergies Allergies/Adverse Reactions: Allergies Allergy/AdvReac Type Severity Reaction Status Date / Time No Known Drug Allergies Allergy Verified 03/10/15 05:43 Review of Systems - Constitutional Constitutional: reports: Fatigue, Weight gain, Other (hot flashes significant through the night and day) - Eyes Eyes: reports: Other (planning on cataract surgery soon) - Ears, Nose & Throat Ears, Nose & Throat: reports: Nosebleeds (restarted with restart of parp inhibitor) - Cardiovascular Cardiovascular: reports: Decr. exercise tolerance - Respiratory Respiratory: reports: SOB with exertion. denies: Cough, SOB at rest (improved) - Gastrointestinal Gastrointestinal: reports: Abdominal distention, Bloating, Good appetite. denies: Constipation, Nausea (has not needed antiemetic), Reflux/heartburn - Musculoskeletal Musculoskeletal: reports: Stiffness, Muscle weakness - Integumentary Integumentary: reports: Dryness, Hair changes (hair growing in) - Neurological Neurological: reports: General weakness, Headache (recurrent now with restart of parp inhibitor; is not taking ondansetron), Numbness, Memory problems (finds worsening STM) - Psychiatric Psychiatric: reports: Anxiety - Hematologic/Lymphatic Hematologic/Lymphatic: reports: Anemia - All Other Systems All Other Systems: reports: Reviewed and negative Physical Exam - Vital Signs Temperature: 96.4 C Pulse Rate: 79 (104 with activity/talking) Respiratory Rate: 18 O2 Saturation: 99 (ra @ rest) Blood Pressure: 122/82 - Physical Exam General Appearance: positive: No acute distress, Alert Eyes Bilateral: positive: Normal inspection, No scleral icterus ENT: positive: Nosebleeds Neck: positive: Trachea midline Cardiovascular: positive: Tachycardia (with any activity) Respiratory: positive: Breath sounds nml Abdomen: positive: Soft, Nml bowel sounds, Distended Skin: positive: Pallor, Dryness Extremities: positive: No pedal edema Neurologic/Psychiatric: positive: Oriented x3, Mood/affect nml Palliative Care - POLST Patient has POLST: Yes POLST Status: DNR, Selective Treatment (completed at visit) Pain: Pain worsening (headache has recurred and is persistent;using apap- tramadol unclear if helps), Pain improved, Location (left upper quadrant; tramadol intermittently with good effect;) Tiredness/Fatigue: Moderate (4-6) Drowsiness/Sedation: Mild (1-3) Nausea: None Anorexia: None Dyspnea: Moderate (4-6) (with activity) Depression: Mild (1-3) Anxiety: Severe (7-10) (intermittent panick attacks; managing with xanax 0.5 mg am and 0.25 mg evenings) Feelings of wellbeing/Perceived Quality of Life: Fair, Acceptable, Worsening Sleep: Sleeps well Constipation: No Performance Status: Patient though she is functional, and able to manage her ADLs, she does have significant fatigue that does impact her activity tolerance. At baseline she has been previously very active, finds this quite frustrating, and perceives this is worsening quality of life. I would though put her at a PPS of 70%. - Palliative Care Discussion: We have been building on her goals of care conversations, patient is trying to get her affairs in order. She experienced both her father and mother's , and is quite clear she does not want any thing to prolong her suffering. She is quite pragmatic in this context though she does have an underlying anxiety disorder somewhat of a juxtaposition. Her sister is quite supportive of this. She does want to have a at home. She has been reflecting on her treatment. If this latest does not work, or shows progression, she has spoken with her oncologist, that she may not want to pursue further treatment. We did discuss in the context of this always to leave things open as far as hearing options and weighing benefits and burdens moving forward. We did complete her durable power of health deputy prosecuting attorney, with her significant other Brian Cowan [phone] his primary and follow-up Frankie ROSSI DONG her sister [phone] has follow-up and third as Amy Amandeep her other sister [phone]. We completed her POLST. As DNR/DNI, selective treatments, patient does though when no longer further receiving active treatment want to move to comfort measures, also determine use of antibiotics with comfort is the goal and no medically assisted nutrition. Counseling provided regarding keeping copy with her as well as putting on fridge. We will put in local HIM. Impression and Recommendations - Palliative Care Impression: This is a rusty 64-year-old woman with stage III high-grade serous fallopian tube cancer, with metastatic disease. She continues with moderate to high symptom burden, of anxiety, fatigue, intermittent pain, and declining functional status. Palliative care assisting with management of symptoms, advanced care planning, and anticipatory guidance. Recommendations/Counseling Done: 1. Anxiety. Patient continues with persistent anxiety, has had improvement with addition of alprazolam, for breakthrough and panic attacks. We will go ahead and increase venlafaxine 75 mg to twice daily, and titrate further if indicated. This will also help with her hot flashes. 2. Pain of neoplastic origin. This does fluctuate, actually has improved with the initiation of her PA RP inhibitor. She does have tramadol which does provide good relief. Patient does exhibit some increased distention, unclear if weight gain or patient starting to develop ascites again. Patient's most persistent pain is her recurrent headache, does respond at times acetaminophen, has tried tramadol as well. This is attributed to as a side effect of her PA RP, as she is not taking ondansetron currently. 3. Generalized weakness. 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 She is going to join a clinical study, looking at impact of exercise, she will be a good candidate as she already does at baseline. 4. Nosebleeds. Patient is been instructed on using normal saline sprays at least once twice a day, patient gets dried out in the context she is outside and exposed to dust and pollen. Patient also has Afrin available, instructed to use for nosebleeds, but not long-term. Patient verbalized understanding. Written instructions have been provided. 5. Advanced care planning. Sister Amy present, patient quite clear on her goals as far as measuring quality of life. She does feel her current significant other, does not want acknowledge the seriousness of her illness, but she is moving forward with getting her affairs in order. We did complete her POLST today, is DNA R/DNI and selective treatments. She had completed her D POA paperwork, and she is working on her will. Addressed patient's and sisters questions regarding the continuum of care, as well as threshold for transitioning to hospice. Patient is continuing to hope for quantity of life, she is quite clear as far as how she defines her quality of life. Time Spent: 60 minutes with greater than 50% of this spent in counseling regarding goals of care, symptom management, and anticipatory guidance.
== END 2019-11-09 16:36 | disposition home or self-care (01) ==
LOC: PC 16:35
PROVIDERS: ATTEND Nurse Practitioner Adult Health
DX: Z51.5 Encounter for palliative care (principal); G89.3 Neoplasm related pain (acute) (chronic); C57.00 Malignant neoplasm of unspecified fallopian tube; F41.9 Anxiety disorder, unspecified; D69.59 Other secondary thrombocytopenia; T45.1X5D Adverse effect of antineoplastic and immunosuppressive drugs, subsequent encounter; G47.00 Insomnia, unspecified; R53.1 Weakness; R04.0 Epistaxis; Z66 Do not resuscitate; Z79.899 Other long term (current) drug therapy
CPT/HCPCS: 99350

== ENCOUNTER 2019-11-22 09:30 | Outpatient (CLI) | payer MEDICAID | END 2019-11-22 23:59 | disposition home or self-care (01) | LOC: COV 09:30 | PROVIDERS: ATTEND Family Medicine | DX: R05 Cough (principal); R06.02 Shortness of breath; R53.83 Other fatigue; J02.9 Acute pharyngitis, unspecified; R19.7 Diarrhea, unspecified; R09.81 Nasal congestion; Z20.828 Contact with and (suspected) exposure to other viral communicable diseases ==

== ENCOUNTER 2019-12-19 15:15 | Outpatient (CLI) | payer MEDICAID ==
--- NOTE | 2019-12-21 08:46 | CONSULTATION NOTE ---
Palliative Care Follow Up - Referral Referring Provider: Jessica St PA-C Time of Visit: MONDAY 12/18 [id number] Referral setting: Home Referral Reason: Fallopian Tube Cancer/Anxiety - Information Sources Records reviewed: Previous records reviewed History/Review of Systems obtained from: Patient Exam limitations: No limitations - History of Present Illness Update Brief HPI Update: This is a rusty 64-year-old woman with stage III high-grade serous fallopian tube cancer, currently on PA RP inhibitor therapy. She has been tolerating this fairly well, no thrombocytopenia, is also participating in a clinical trial of progressive exercise and strengthening program. She did have some improvement with her hot flashes, though reports these are worsening again, with no pattern, and very problematic. She is so doing well with her anxiety on the venlafaxine for a total of 225 mg, she has not needed any alprazolam for breakthrough or further panic attacks. She does report though diarrhea, fairly persistent, can be a side effect of Zejula and/or her Crohn's, she has not been treating this, reviewed concern regarding loss of fluids/and hypokalemia. She does present with concern with her increasing CA 125, she is due to get another scan as well as lab on 01/12. She has had some persistent fatigue, but otherwise no return of pain. She is sleeping well she has found the perfect balance with Ambien 7.5 mg at bedtime. She is getting emotionally exhausted, her family has been quite busy, though they are supportive she does find it sometimes a lot. She is trying to do her crafts, she feels like her significant other Willie is coming around understanding the seriousness of her illness, but feels like her family continues to struggle with understanding where she sat. She did complete her cataract surgery, she still is having difficulty with allergies, with nasal congestion, has been using Flonase. She remains somewhat tachycardic, but no further panic attacks, chest pain, lower extremity edema, and overall feels she is in pretty good space. Social History - Living Situation Living arrangement: At home Living Situation: With spouse/s.o. 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 She is lamenting the changes, but still finds quality of life. With her partner Willie, who continues to work. Her sister, has been staying with her long-term, she had had hip surgery and is recovering. She is thinking she will be leaving early fall, she is ready to have some peaceful time as well. She does have a very supportive and caring family. But they do together frequently, which involves travel and not much rest. Medications/Allergies - Medications Home Medications: Ambulatory Orders Medication Instructions Recorded Confirmed Multivitamin [Multivitamins] 1 cap PO DAILY 08/16/15 11/23/19 Zolpidem [Ambien] 7.5 mg PO QPM 09/21/19 11/23/19 Acetaminophen [Tylenol] 650 mg PO Q8HR PRN 09/22/19 11/23/19 Niraparib Tosylate [Zejula] 200 mg PO QPM MDD HOLD 10/0209/22/19 11/23/19 Ondansetron [Zuplenz] 4 mg PO Q8HR PRN 09/22/19 11/23/19 Prochlorperazine Maleate 10 mg PO Q6HR PRN 09/22/19 11/23/19 Senna [Senokot] 8.6 mg PO BID PRN 09/22/19 11/23/19 polyethylene glycoL 3350 [Miralax] 17 gm PO DAILY PRN 09/22/19 11/23/19 traMADol [Ultram] 50 mg PO Q4HR PRN 09/22/19 11/23/19 Alprazolam [Xanax] 0.25 - 0.5 mg PO Q6HR PRN MDD 6 10/04/19 11/23/19 Venlafaxine HCl [Venlafaxine HCl 225 mg PO DAILY 11/09/19 11/23/19 ER] - Allergies Allergies/Adverse Reactions: Allergies Allergy/AdvReac Type Severity Reaction Status Date / Time No Known Drug Allergies Allergy Verified 03/10/15 05:43 Review of Systems - Constitutional Constitutional: reports: Fatigue (fluctuates; walking 30 minutes 4 x week for clinical study), Night sweats (worsening; dripping "all the time" now with hot flashes), Weight stable. denies: Fever - Eyes Eyes: reports: Other (cataract surgery successful with improved visition) - Ears, Nose & Throat Ears, Nose & Throat: reports: Nasal congestion, Dry mouth, Other (worsening "allergy symptoms"). denies: Mouth lesions - Cardiovascular Cardiovascular: denies: Palpitations, Chest pain - Respiratory Respiratory: reports: SOB with exertion. denies: Cough, Wheezing, SOB at rest - Gastrointestinal Gastrointestinal: reports: Diarrhea (worsening over last several weeks; not watery but loose 2-3 x a day; sometimes more frequently), Good appetite. denies: Constipation, Nausea - Genitourinary Genitourinary: denies: Dysuria - Integumentary Integumentary: reports: Dryness, Hair changes (growing back in) - Neurological Neurological: reports: Memory problems (reports "chemo brain"; mild forgetfulness; no confusion) - Psychiatric Psychiatric: reports: Anxiety (not needing alprazolam; anxiety controlled on currentl dosing of effexor) - Hematologic/Lymphatic Hematologic/Lymphatic: reports: Anemia. denies: Recurrent infections Physical Exam - Vital Signs Temperature: 96.8 C Pulse Rate: 100 Respiratory Rate: 18 O2 Saturation: 99 (ra @ rest) Blood Pressure: 122/78 - Physical Exam General Appearance: positive: No acute distress, Alert Eyes Bilateral: positive: Normal inspection, No scleral icterus ENT: positive: No signs of dehydration Neck: positive: Trachea midline Cardiovascular: positive: Tachycardia (with any activity) Respiratory: positive: Breath sounds nml. negative: Wheezes, Rales, Rhonchi Abdomen: positive: Soft, Nml bowel sounds Skin: positive: Pallor, Dryness Extremities: positive: No pedal edema Neurologic/Psychiatric: positive: Oriented x3, Mood/affect nml Palliative Care - POLST Patient has POLST: Yes POLST Status: DNR, Selective Treatment Pain: No pain Tiredness/Fatigue: Mild (1-3) Drowsiness/Sedation: None Nausea: None Anorexia: None Dyspnea: Mild (1-3) Depression: Mild (1-3) Anxiety: Mild (1-3) Feelings of wellbeing/Perceived Quality of Life: Good, Acceptable, Improved Sleep: Sleeps well Constipation: No Performance Status: Patient has been participating in an exercise intervention trial. She is starting to feel somewhat onerous regarding this, it is 4 times a week at 30 minutes, and will continue to increase in frequency and duration. She is tolerating it fairly well, but does take quite a bit of planning around for her. Some days she likes to just be quiet. She is able to manage her own ADLs, she is limited but sometimes by her shortness of breath and fatigue, but has found both improving overall. - Palliative Care Discussion: Patient very much find explore the what if's, she is worried with her increasing tumor marker, and pending scan. She has tolerated her current treatment regimen at lower dose much better, she very much is weighing her decisions in the context of quality of life not quantity. She did see both her parents go through cancer treatment and do very poorly with those. Counseling provided though in the context of choices now, to continue to weigh benefits and burdens even if new options are brought up. Patient does not believe she would do standard chemotherapy again, she found that. Very difficult, and recognizes that it would not do much more than prolong her suffering and not support her current quality of life that she is enjoying. Patient does have her Bibiana DERASA as her significant other Brian Cowan [phone], she does believe he understands what she would not her want or not want. She has completed a POLST with DNR/DNI selective treatments, and at end-of-life would like a at home. We will continue to explore these moving forward, space given for her to reflect on her journey. Results - Lab Results Lab results reviewed: Yes Lab and Imaging Results: reviewed labs on portal Impression and Recommendations - Palliative Care Impression: This is a rusty 64-year-old woman with stage III high-grade serous fallopian tube cancer, with metastatic disease. She is doing fairly well currently, she has had improvement in her functional status, she continues with severe hot flashes, but otherwise no pain, fatigue is improved, and anxiety well controlled currently. Palliative care providing support with management of symptoms, advanced care planning, and anticipatory guidance. Recommendations/Counseling Done: 1. Anxiety. Patient actually doing very well with venlafaxine up to 225 mg, she is taking 150 in the a.m. and 75 at bedtime. She has not needed any alprazolam for breakthrough panic attacks, she does have it available if needed and has been effective. 2. Pain of neoplastic origin. Patient has not had any return of pain, she is quite comfortable, she has had some weight gain and some abdominal pressure, will continue to watch for signs or symptoms of ascites. 3. Diarrhea. This is multifactorial. Patient does have Crohn's, but suspect it is more persistent from the PA RP inhibitor. Patient's been instructed to use Imodium after first loose stool, and titrate accordingly. Patient is well versed in this related to her Crohn's. Counseling provided regarding concern for hypokalemia and loss of fluids, as well as maintaining nutritional status. 4. Generalized weakness. Patient has improved in functional status with her progressive exercise program, she is starting to feel somewhat onerous, but has been compliant. Reflecting on ability to adhere when weather gets more difficult, as finding places to walk in the context of COVID-19 pandemic [place]. 5. Advanced care planning. Patient is pending CT scan and watching Ca1 25 trend up, she is reflective of decisions she may need to make in the future. She continues to try and identify quality of life versus quantity of life, and worry about extended suffering. Explored issues in counseling today. Time Spent: 45 minutes with greater than 50% done in counseling regarding symptom management, reflective listening and psychosocial support, and anticipatory guidance.
== END 2019-12-19 15:16 | disposition home or self-care (01) ==
LOC: PC 15:15
PROVIDERS: ATTEND Nurse Practitioner Adult Health
DX: Z51.5 Encounter for palliative care (principal); F41.9 Anxiety disorder, unspecified; R53.83 Other fatigue; R06.02 Shortness of breath; R61 Generalized hyperhidrosis; R53.1 Weakness; R19.7 Diarrhea, unspecified; C57.00 Malignant neoplasm of unspecified fallopian tube; C79.9 Secondary malignant neoplasm of unspecified site; Z79.899 Other long term (current) drug therapy; Z63.8 Other specified problems related to primary support group; Z66 Do not resuscitate
CPT/HCPCS: 99349

== ENCOUNTER 2020-01-18 09:05 | Outpatient (CLI) | payer MEDICAID ==
--- NOTE | 2020-01-18 18:58 | CONSULTATION NOTE ---
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 She is awaiting pending CT scan next Wednesday to get a better sense of what is happening with her cancer, with close follow up with Dr. Fonseca. In the meantime she has developed actually fairly acute progression of her pain, over the last week, but in reflecting back she has had intermittent sharp shooting pain in her left side. This is area of pain she has had before, which did relent and improve with treatment. On examination she does have tenderness, no masses felt, but moderate to severe pain with palpation on left, moderate pain on right lower quadrant. Patient does not present with obstructive symptoms, she does have low-grade nausea, bowels are moving, abdomen is soft and bowel tones are normal. Patient's baseline, is often diarrhea secondary to her Crohn's disease, but has been having regular formed stools with use of MiraLAX. Counseling provided regarding adding senna today. Patient's anxiety is currently controlled with the venlafaxine 225 mg, she is using the alprazolam on 0.25 mg 2 tabs a.m. and 1 tab at p.m., has not had any further panic attacks despite increased concerns with progression of her disease. She continues with persistent sweating, shortness of breath only with ambulation and elevation, she has been participating in her clinical study for exercise. In the context of this though, unfortunately this escalates her pain. Patient had also developed a small areas of shingles on her buttocks, this is drying out and doing better. She did have shingles last year, and has received her shots. Social History - Living Situation Living arrangement: At home Living Situation: With spouse/s.o. Support System: Patient lives at home with her significant other Willie. Her sister has been living with her the last several weeks to months, she has recently gone home. Patient is enjoying some quiet time, her significant other Josh does work. Patient is retired, has been active most of her life, involved in gardening and [employer] and [employer] business. She does have a very close family, and had a recent wedding with her nephew, said she felt like she was saying her goodbyes, but was appreciative of the time to be able to do this. Medications/Allergies - Medications Home Medications: Ambulatory Orders Medication Instructions Recorded Confirmed Multivitamin [Multivitamins] 1 cap PO DAILY 08/16/15 01/18/20 Zolpidem [Ambien] 7.5 mg PO QPM 09/21/19 01/18/20 Acetaminophen [Tylenol] 650 mg PO Q8HR PRN 09/22/19 01/18/20 Ondansetron [Zuplenz] 4 mg PO Q8HR PRN 09/22/19 01/18/20 Prochlorperazine Maleate 10 mg PO Q6HR PRN 09/22/19 01/18/20 Senna [Senokot] 8.6 mg PO BID PRN 09/22/19 01/18/20 polyethylene glycoL 3350 [Miralax] 17 gm PO DAILY PRN 09/22/19 01/18/20 Alprazolam [Xanax] 0.25 - 0.5 mg PO Q6HR PRN MDD 6 10/04/19 01/18/20 Venlafaxine HCl [Venlafaxine HCl 225 mg PO DAILY 11/09/19 01/18/20 ER] Oxycodone HCl 10 - 20 mg PO Q4HR PRN 01/18/20 01/18/20 - Allergies Allergies/Adverse Reactions: Allergies Allergy/AdvReac Type Severity Reaction Status Date / Time No Known Drug Allergies Allergy Verified 03/10/15 05:43 Review of Systems - Constitutional Constitutional: reports: Fatigue (worsening), Poor appetite, Night sweats, Weight loss (about 3-4 pounds this last couple of weeks) - Eyes Eyes: reports: Vision loss, Other (recent cataract surgery) - Ears, Nose & Throat Ears, Nose & Throat: reports: Nasal congestion, Dry mouth - Cardiovascular Cardiovascular: reports: Exertional dyspnea, Decr. exercise tolerance - Respiratory Respiratory: reports: SOB with exertion. denies: SOB at rest - Gastrointestinal Gastrointestinal: reports: Abdominal pain, Constipation (controlled currently; usually diarrhea; with initiation of pain meds), Nausea (worsening), Reflux/heartburn, Bloating, Poor appetite, Early satiety. denies: Vomiting - Genitourinary Genitourinary: reports: Frequency - Musculoskeletal Musculoskeletal: reports: Back pain, Stiffness, Muscle weakness - Integumentary Integumentary: reports: Dryness, Other (small lesion buttocks drying out;) - Neurological Neurological: reports: General weakness, Memory problems (reports "chemo brain" some STM issues; needs to write things down;) - Psychiatric Psychiatric: reports: Anxiety. denies: Depression - All Other Systems All Other Systems: reports: Reviewed and negative Physical Exam - Vital Signs Temperature: 96.2 C Pulse Rate: 90 Respiratory Rate: 18 O2 Saturation: 98 (ra @ rest) Blood Pressure: 132/82 - Physical Exam General Appearance: positive: Alert, Mild distress Eyes Bilateral: positive: Normal inspection, No scleral icterus ENT: positive: No signs of dehydration Neck: positive: Trachea midline Cardiovascular: positive: Tachycardia (with any activity) Respiratory: positive: Breath sounds nml, Diminished in bases. negative: Wheezes, Rales, Rhonchi Abdomen: positive: Soft, Nml bowel sounds, Tenderness, Guarding. 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 She tried to this morning, with some better relief, has not felt sedated or altered on this, is feeling comfortable moving forward being on a more regular) Tiredness/Fatigue: Severe (7-10) Drowsiness/Sedation: Mild (1-3) Nausea: Moderate (4-6) Anorexia: Moderate (4-6), Weight loss Depression: Moderate (4-6) (with activity) Anxiety: Moderate (4-6), Comment (trying to stay on top of it with meds/distraction) Feelings of wellbeing/Perceived Quality of Life: Fair, Worsening (with pain) Sleep: Sleeps well Constipation: Yes, Opoid induced, Managed Performance Status: Patient has been quite active, participating in exercise program for her study. Though last few days is felt like this is exacerbated her pain. We discussed in the context of not knowing what is going on, she will put her steady on hold for now. She is due for scans, this may inform better what to expect. She is able to manage her ADLs, but has felt more tired with activity and tolerating it less particularly with upward incline. - Palliative Care Discussion: Patient expressing concerns regarding her disease progression, she is quite anxious to get a better sense of what is happening as well as her prognosis. She does understand she may have further treatment options, discussed this in the context of not only prognosis, but in quality of life and symptom management particularly the pain. She feels it would be helpful to have some kind of sense of what time she has left, she does have a few things left including camping on her to do list. She was recently at a family gathering, felt like she was sayi ng her goodbyes, reports she is crying like crazy, trying to help her family understand she is coming towards end-of-life. Patient is quite clear her decisions will be made in the context of quality of life, she did witness and care for her parents towards end-of-life. Provided psychosocial support and presence in the exploration of her concerns and fears. 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 She has developed worsening an acute abdominal pain, in the same area as previously, attributed currently to disease progression. She does not present with ob structive symptoms currently. Palliative care to continue to follow for pain and symptom management. Recommendations/Counseling Done: 1. Pain of neoplastic origin. Patient has been instructed to use oxycodone 10 mg tabs, 1-2 every 4 hours and titrate to comfort. She has been instructed to keep track of this, over the weekend, counseling provided regarding long-acting medication transition based on use to keep comfortable. Patient verbalized understanding. Patient's insurance most likely to cover time-released morphine, if patient having persistent nausea may consider transitioning to fentanyl. Plan to have palliative care RN follow-up on Wednesday, check in regarding pain control. Can choose to transition at that time, or after appointment with Dr. Fonseca on Wednesday, when will have more information on underling disease and plans for treatment. 2. Anxiety. Patient despite concern for recurrent disease, is doing fairly well. She has found the alprazolam on helpful for her panic attacks. She is using it appropriately. Depending on outcome of visits, will offer up medical palliative care social worker masters again. She had declined previously as felt like she had adequate support. This would be more in the context of both short-term and long-term planning. 3. Constipation. Patient usually has issues with diarrhea secondary to Crohn's disease, with initiation of opioids counseling provided regarding bowel program. Reviewed MiraLAX daily, and Senokot 1 tab twice daily, and increase if no BM in 48 hours. Counseling regarding titration of medications to affect. 4. Stage III high-grade serous fallopian tube cancer with metastatic disease. Patient presents with escalating Ca1 25, worsening pain, persistent nausea. Patient has stopped the Zejula, as she felt did not want to add to the nausea particularly if not working. Provided regarding in the context of treatment options in the setting of palliation of symptoms and/or prognosis. Patient does feel would be helpful to have more definitive timeline, did reach out and communicate this to Dr. Fonseca. 5. Advanced care planning. Patient has done quite a bit of work regarding her legal and advanced care planning documents. Currently her POLST is DNA R with selective treatments. Patient is quite clear if her quality of life declines, she is not interested in prolonging this. Counseling provided regarding the continuum of care. Time Spent: 45 minutes with greater than 50% was done in counseling regarding pain management, management of anxiety, bowels, and anticipatory guidance. Coordination of care with oncology team.
== END 2020-01-18 09:06 | disposition home or self-care (01) ==
LOC: PC 09:05
PROVIDERS: ATTEND Nurse Practitioner Adult Health
DX: Z51.5 Encounter for palliative care (principal); G89.3 Neoplasm related pain (acute) (chronic); C57.00 Malignant neoplasm of unspecified fallopian tube; C79.9 Secondary malignant neoplasm of unspecified site; F41.9 Anxiety disorder, unspecified; K50.90 Crohn's disease, unspecified, without complications; Z66 Do not resuscitate
CPT/HCPCS: 99349

== ENCOUNTER 2020-01-29 11:15 | Outpatient (CLI) | payer MEDICAID ==
--- NOTE | 2020-01-29 17:30 | CONSULTATION NOTE ---
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 She did have a CT scan, reports follow-up with Dr. Fonseca showed no changes. She is finding this somewhat befuddled in, as her pain is continued to increase, despite titrating up opioids. She does present today with fairly acute abdominal tenderness, no distention, good bowel tones. She has had in the past intermittent sharp shooting pain on her left side, this is consistent with last examination on 01/17, in the meantime she has developed increasing right upper quadrant pain, and sharp shooting pains through her abdomen to her back, and low-grade sustained back pain. She has been awaiting follow-up regarding a another tumor marker test, and was somewhat confused by they would recommend physical therapy for her pain management. Patient has been consistently using oxycodone 40 to 50 mg in 24 hours, to control her pain. She was transitioned to time-released morphine 50 mg 3 times daily on 01/24, and today she presents with escalating pain, she reports it had been fairly well controlled with only intermittent oxycodone over the last week but it worsened over the weekend. Patient's bowels have been moving, they have been soft, her nausea has resumed with the resumption of her Zejula. She is using ondansetron twice daily. She is also developed some urinary symptoms, alternating with urgency mild incontinence, and then some intermittent urinary retention. On palpation, I do not feel bladder distention but is quite tender through whole abdomen. Patient is due to get lab, will have her follow-up with UA as well though denies dysuria, fever or chills. Social History - Living Situation Living arrangement: At home Living Situation: With spouse/s.o. Support System: Patient continues to try and maintain some kind of normalcy in some of her activities, though increased activity causes increased pain. She lives with her significant other Willie, at this point in time her sister is not visiting. She does feel like she is managing. Medications/Allergies - Medications Home Medications: Ambulatory Orders Medication Instructions Recorded Confirmed Multivitamin [Multivitamins] 1 cap PO DAILY 08/16/15 01/29/20 Zolpidem [Ambien] 7.5 mg PO QPM 09/21/19 01/29/20 Acetaminophen [Tylenol] 650 mg PO Q8HR PRN 09/22/19 01/29/20 Ondansetron [Zuplenz] 4 mg PO Q8HR PRN 09/22/19 01/29/20 Prochlorperazine Maleate 10 mg PO Q6HR PRN 09/22/19 01/29/20 Senna [Senokot] 8.6 mg PO BID PRN 09/22/19 01/29/20 polyethylene glycoL 3350 [Miralax] 17 gm PO DAILY PRN 09/22/19 01/29/20 Alprazolam [Xanax] 0.25 - 0.5 mg PO Q6HR PRN MDD 6 10/04/19 01/29/20 Venlafaxine HCl [Venlafaxine HCl 225 mg PO DAILY 11/09/19 01/29/20 ER] Oxycodone HCl 10 mg PO Q4HR PRN 01/18/20 01/29/20 Melatonin 10 mg PO QPM 01/29/20 01/29/20 Morphine Sulfate [Ms Contin] 15 mg PO .15AM 15 2PM 30 HS 01/29/20 01/29/20 Niraparib Tosylate [Zejula] 200 mg PO DAILY 01/29/20 01/29/20 - Allergies Allergies/Adverse Reactions: Allergies Allergy/AdvReac Type Severity Reaction Status Date / Time No Known Drug Allergies Allergy Verified 03/10/15 05:43 Review of Systems - Constitutional Constitutional: reports: Fatigue, Poor appetite. denies: Fever, Night sweats (improved) - Cardiovascular Cardiovascular: reports: Exertional dyspnea, Decr. exercise tolerance - Respiratory Respiratory: reports: SOB with exertion. denies: Cough, Wheezing - Gastrointestinal Gastrointestinal: reports: Abdominal pain (worsening), Abdominal distention, Nausea (using ondansetron BID), Bloating, Early satiety. denies: Constipation, Diarrhea, Vomiting - Genitourinary Genitourinary: reports: Urgency, Other (urinary retention symptoms) - Musculoskeletal Musculoskeletal: reports: Back pain, Stiffness, Muscle weakness, Joint pain (bilateral knee pain) - Integumentary Integumentary: reports: Dryness - Neurological Neurological: reports: General weakness, Memory problems ("chemo brain" STM issues/word finding/denies confusion). denies: Dizziness - Psychiatric Psychiatric: reports: Depression, Anxiety - Hematologic/Lymphatic Hematologic/Lymphatic: denies: Recurrent infections - All Other Systems All Other Systems: reports: Reviewed and negative Physical Exam - Vital Signs Temperature: 96.2 C Pulse Rate: 103 Respiratory Rate: 18 O2 Saturation: 97 (ra @ rest) Blood Pressure: 102/78 - Physical Exam General Appearance: positive: Alert, Mild distress, Anxious Eyes Bilateral: positive: Normal inspection, No scleral icterus ENT: positive: No signs of dehydration Neck: positive: Trachea midline Cardiovascular: positive: Tachycardia (with any activity) Respiratory: positive: Breath sounds nml, Diminished in bases. negative: Wheezes, Rales, Rhonchi Abdomen: positive: Soft, Nml bowel sounds, Tenderness, Guarding. negative: Mass Skin: positive: Pallor, Dryness, Rash (dried lesion buttock less than 1 cm) Extremities: positive: No pedal edema Neurologic/Psychiatric: positive: Oriented x3, Weakness, Depressed mood/affect Palliative Care - POLST Patient has POLST: Yes POLST Status: DNR, Selective Treatment Pain: Pain worsening, Location (Patient describes pain at persistent left side, increased with any kind of twisting or moving. Patient reports new pain on right side along rib border, describes internal. Then also describes pain radiating straight back to abdominal area, like sharp shooting knives. Also some tension in her lowe), Comment (Patient was initiated on MS Contin 15 mg 3 times daily on 01/24, this was holding her pretty well into the last 2448 hrs., with a significant increase in pain and discomfort particular on the right upper area. Patient is somewhat discouraged, as was told there were no changes noted on her CT scan.) Tiredness/Fatigue: Moderate (4-6) Drowsiness/Sedation: None Nausea: Moderate (4-6) (with restarting zeujula using ondansetron BID) Anorexia: Moderate (4-6) Dyspnea: Moderate (4-6) (with activity) Depression: Mild (1-3) Anxiety: Moderate (4-6) Feelings of wellbeing/Perceived Quality of Life: Fair, Acceptable, Worsening Sleep: Sleeps well (but did awaken in pain last night; needed oxycodone) Constipation: Yes, Opoid induced, Intermittent constipation (patient hx with crohns often struggles with diarrhea) Performance Status: Patient's pain is exacerbated with activity, patient is still trying to maintain some sort of normalcy. Did discuss at this point in time while titrating medications to try and not continue with the study but continue with some activity, including ambulation. - Palliative Care Discussion: Patient is somewhat confused and distress. She is having worsening pain, that in her appointment with oncologist did not feel this is acknowledged and was told no further progression of disease. She does present with some concern regarding her worsening pain, and quality of life. We did discuss in the context she is still on fairly low doses of opioids, and do have more options as far as titration. Did reach out to see the rationale of adding physical therapy, as her exercises from her research study have been causing increased pain and distress. Will await further feedback from Dr. Fonseca. Call put in to clinic, visit notes not available yet. Report left regarding needing to titrate opioids and worsening pain. 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 She has continued to develop worsening abdominal pain, and same left-sided areas previously, and now developed an right upper quadrant. She does not present with obstructive symptoms, but is currently needing escalating doses of opioids. Palliative care to continue to follow for pain and symptom management. Recommendations/Counseling Done: 1. Pain of neoplastic origin. Patient is currently on MS Contin 15 mg 3 times daily, is having more pain the last 24-48 hrs. Is using oxycodone 10 mg with relief, though did wake up in pretty severe pain this morning. We will go ahead and titrate up slowly, she is to take 15 mg a.m., 15 mg 2:00, and 30 mg at bedtime. Reviewed again need to aggressively manage of her breakthrough pain with oxycodone, to be able to titrate medications appropriately. Patient's pain is exacerbated with twisting turning and activity, recommended to continue to hold off on study. She can ambulate, but not to any significant lifting. Call to Dr. Fonseca's office, Requested results from CT scan, also left information regarding patient's escalating pain. Patient is also waiting instructions on labs discussed during tele-medicine visit. 2. Anxiety. Patient is doing fairly well, she is somewhat befuddled by her increasing pain and being told her disease is stable. She does present with objective and subjective signs of increasing pain today. She is using alprazolam twice daily, and no further panic attacks. She reports currently the venlafaxine is also working for her night sweats. 3. Constipation. Patient's usual is diarrhea secondary to Crohn's disease, with initiation of opioids as needed her more aggressive bowel program. She is using MiraLAX daily, has been instructed to use Senokot if needed for no BM in 24 hours. Reviewed titration of medications again, patient does have a some short-term memory issues. She has made a very nice chart to be able to track more easily. 4. Stage III high-grade serous fallopian cancer with metastatic disease. Patient presents with increasing CEA 125, worsening pain, she has been restarted on her Zejula. This is increased her nausea, she is taking ondansetron twice daily. She is awaiting further instructions from Dr. Fonseca, she did not get her information regarding prognostic factors which she was hoping for. 5. Advanced care planning. Patient has done quite a bit of work regarding her legal and advanced care planning documents, current POLST Is DNA R with selective treatments. Patient is questioning her quality of life, with escalating pain, reassured can still increase opioid dosing. 6. Urinary retention. Instructed patient to please pay attention, regarding urinary symptoms. If has increased trouble with retentive symptoms, dysuria, or concerns to be sure and reach out to palliative or PCP. We will get UA with pending labs. 7. Insomnia. Patient is been taking high-dose melatonin as a supplement for her cancer, discussed in the context of all that is going on would recommend titrating back down to 10 mg at night, versus 60 mg total. Can be activating versus sedating at higher doses. Time Spent: 45 minutes with greater than 50% of this done in counseling regarding pain and symptom management, coordination of care with oncology, and anticipatory guidance provided
== END 2020-01-29 11:16 | disposition home or self-care (01) ==
LOC: PC 11:15
PROVIDERS: ATTEND Nurse Practitioner Adult Health
DX: Z51.5 Encounter for palliative care (principal); G89.3 Neoplasm related pain (acute) (chronic); F41.9 Anxiety disorder, unspecified; K59.03 Drug induced constipation; T40.2X5A Adverse effect of other opioids, initial encounter; R11.0 Nausea; C57.00 Malignant neoplasm of unspecified fallopian tube; N39.41 Urge incontinence; R33.9 Retention of urine, unspecified; G47.00 Insomnia, unspecified; K50.90 Crohn's disease, unspecified, without complications; Z79.899 Other long term (current) drug therapy; Z66 Do not resuscitate
CPT/HCPCS: 99349

== ENCOUNTER 2020-02-09 16:32 | Outpatient (CLI) | payer MEDICAID | END 2020-02-09 16:33 | disposition home or self-care (01) | LOC: COV 16:32 | PROVIDERS: ATTEND Family Medicine | DX: R05 Cough (principal); M79.10 Myalgia, unspecified site; R53.83 Other fatigue; Z20.828 Contact with and (suspected) exposure to other viral communicable diseases ==

== ENCOUNTER 2020-02-15 08:00 | Outpatient (CLI) | payer MEDICAID ==
[2020-02-15 18:12] LABS: BASOPHILS # (AUTO) 0.1 10^3/uL (0.0-0.1); BASOPHILS % (AUTO) 1.1 %; EOSINOPHILS # (AUTO) 0.1 10^3/uL (0.0-0.7); EOSINOPHILS % (AUTO) 2.3 %; HGB - HEMOGLOBIN 12.4 g/dL (12.0-16.0); LYMPHOCYTES # (AUTO) 1.9 10^3/uL (1.5-3.5); LYMPHOCYTES % (AUTO) 32.8 %; MEAN CORPUSCULAR HEMOGLOBIN 33.1 pg (27.0-31.0); MEAN CORPUSCULAR VOLUME 103.5 fL (81.0-99.0); MEAN PLATELET VOLUME 8.9 fL (7.9-10.8); MONOCYTES # (AUTO) 0.5 10^3/uL (0.0-1.0); MONOCYTES % (AUTO) 9.5 %; NEUTROPHILS # (AUTO) 3.1 10^3/uL (1.5-6.6); NEUTROPHILS % (AUTO) 54.1 %; PLT - PLATELET COUNT 307 10^3/uL (130-450); RED BLOOD COUNT 3.75 10^6/uL (4.20-5.40); RED CELL DISTRIBUTION WIDTH 13.7 % (12.0-15.0); WHITE BLOOD COUNT 5.7 x10^3/uL (4.8-10.8)
[2020-02-15 18:27] LABS: ALBUMIN 4.4 g/dL (3.2-5.5); ALBUMIN/GLOBULIN RATIO 1.3 (1.0-2.2); BILIRUBIN,TOTAL 0.8 mg/dL (0.2-1.0); CALCIUM 9.9 mg/dL (8.5-10.3); CREATININE 1.1 mg/dL (0.4-1.0); MAGNESIUM 2.1 mg/dL (1.7-2.8); TOTAL PROTEIN 7.9 g/dL (6.7-8.2)
== END 2020-02-15 23:59 ==
LOC: LAB.WCP 08:00
PROVIDERS: ATTEND Physician Assistant Medical
DX: C56.9 Malignant neoplasm of unspecified ovary (principal)
CPT/HCPCS: 36415; 80053; 83735; 85025; 86304

== ENCOUNTER 2020-02-22 10:00 | Outpatient (CLI) | payer MEDICAID ==
--- NOTE | 2020-02-22 18:34 | CONSULTATION NOTE ---
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 Unfortunately she was so anxious with the chemotherapy hazard back, she did not review or remember the directions, and has taken 150 mg twice daily for a week, instead 300 mg twice daily for a week. She does though feel somewhat reassured as she has not had any side effects, no nausea, has continue with persistent fatigue, but has improved her functional status overall. She does still continue with persistent left upper quadrant pain, she had stopped all her opioids somewhat "cold turkey", unfortunately with some withdrawal symptoms. She has had an improvement in her pain overall, with decreased abdominal distention, and has settled on oxycodone 10 mg short acting a.m. and p.m., though still complains of persistent discomfort during the day. She has returned to her exercise routine, this does help her mood, she michael easily fatigued, and continues with fluctuating anxiety. Patient continues to worry about her end-of-life journey, has been discussing regarding end-of-life [place] and DWD, she has printed off that information, and wants to discuss this today. Overall she appears quite bright, easily engaged, continues to have short-term memory issues, denies any further issues around incontinence, and has recently seen her PCP. Past Medical History: Crohns disease currently controlled, rhinitis, anxiety disorder, history of shingles, recent cataract surgery, rheumatoid arthritis, depression Social History - Living Situation Living arrangement: At home Living Situation: With spouse/s.o. Support System: Patient lives with her significant other Willie, she reports he is having trouble coping with her diagnosis. She does have a son, and multiple family members who are supportive. She does have a sister who intermittently comes in provides caregiving. 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 Medications/Allergies - Medications Home Medications: Ambulatory Orders Medication Instructions Recorded Confirmed Multivitamin [Multivitamins] 1 cap PO DAILY 08/16/15 02/22/20 Zolpidem [Ambien] 7.5 mg PO QPM 09/21/19 02/22/20 Acetaminophen [Tylenol] 650 mg PO Q8HR PRN 09/22/19 02/22/20 Ondansetron [Zuplenz] 4 mg PO Q8HR PRN 09/22/19 02/22/20 Prochlorperazine Maleate 10 mg PO Q6HR PRN 09/22/19 02/22/20 Senna [Senokot] 8.6 mg PO BID PRN 09/22/19 02/22/20 polyethylene glycoL 3350 [Miralax] 17 gm PO DAILY PRN 09/22/19 02/22/20 Alprazolam [Xanax] 0.25 - 0.5 mg PO Q6HR PRN MDD 6 10/04/19 02/22/20 Venlafaxine HCl [Venlafaxine HCl 225 mg PO DAILY 11/09/19 02/22/20 ER] Oxycodone HCl 10 mg PO Q4HR PRN 01/18/20 02/22/20 Olaparib [Lynparza] 300 mg PO BID 02/22/20 02/22/20 - Allergies Allergies/Adverse Reactions: Allergies Allergy/AdvReac Type Severity Reaction Status Date / Time No Known Drug Allergies Allergy Verified 03/10/15 05:43 Review of Systems - Constitutional Constitutional: reports: Fatigue, Weight loss (162). denies: Fever, Chills - Eyes Eyes: reports: Vision loss, Other (developed "floaters" going to eye doctor) - Ears, Nose & Throat Ears, Nose & Throat: reports: Nasal congestion. denies: Mouth lesions - Cardiovascular Cardiovascular: reports: Decr. exercise tolerance (improving). denies: Chest pain, Edema - Respiratory Respiratory: reports: SOB with exertion. denies: Cough, Wheezing, SOB at rest - Gastrointestinal Gastrointestinal: reports: Abdominal pain (left upper quadrant), Constipation (restarted miralax), Nausea (occasional but not peristent), Early satiety - Genitourinary Genitourinary: denies: Incontinence - Musculoskeletal Musculoskeletal: reports: Stiffness, Muscle weakness - Integumentary Integumentary: reports: Dryness - Neurological Neurological: reports: General weakness, Numbness, Memory problems - Psychiatric Psychiatric: reports: Anxiety. denies: Depression - All Other Systems All Other Systems: reports: Other (recently tested for COVID negative; anxious about cold symptoms) Physical Exam - Vital Signs Temperature: 96.5 C Pulse Rate: 65 Respiratory Rate: 18 O2 Saturation: 98 Blood Pressure: 122/72 - Physical Exam General Appearance: positive: No acute distress, Alert Eyes Bilateral: positive: Normal inspection, No scleral icterus ENT: positive: No signs of dehydration Neck: positive: Trachea midline Cardiovascular: positive: Tachycardia (with any activity) Respiratory: positive: Breath sounds nml, Diminished in bases. negative: Wheezes, Rales, Rhonchi Abdomen: positive: Soft, Nml bowel sounds, Tenderness (left upper quadrant). negative: Mass Skin: positive: Pallor, Dryness Extremities: positive: No pedal edema Neurologic/Psychiatric: positive: Oriented x3, Mood/affect nml Palliative Care - POLST Patient has POLST: Yes POLST Status: DNR, Selective Treatment Pain: Location (Left upper quadrant; had resolved? but returned; persistent;) Tiredness/Fatigue: Moderate (4-6) (patient finds distressing though is very active) Drowsiness/Sedation: Mild (1-3) Nausea: Mild (1-3) Anorexia: Mild (1-3) Dyspnea: Moderate (4-6) (with activity) Depression: Mild (1-3) Anxiety: Moderate (4-6) (fluctuates; uses alprazalom in am; her most anxious time;) Feelings of wellbeing/Perceived Quality of Life: Good, Acceptable, Improved Sleep: Sleeps well Constipation: Yes, Opoid induced, Managed Performance Status: Patient previous to her illness, was very active, and often uses this is her comparison. She does manage her own ADLs, she does quite a bit of pool hand and tasks, as well as gardening. She tends to overdo. 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 She does find this uplifting, though does at times aggravate her pain. - Palliative Care Discussion: Counseling provided regarding patient's wanting to finish her end-of-life planning. She is quite interested in pursuing the with dignity option, we discussed though in the context of this she needs to be in her 6 months is best we know end-of-life windowpane. Of her trajectory. It is a complicated process, she does have the packet. We discussed in the context of this nydia horta important is to get her wishes documented in a physician visit note, and to request Dr. Fonseca document this. She does not need to be the prescribing/attending provider, but can be consultative if she is not comfortable with the other role. [facility] does have physician volunteers if needed, patient reassured. She also at this point in time wants to change her DPOA from Willie to her sister, forms were given, encouraged to do this sooner than later. She also has complicated community property, as they are not , recommended given her plans for her will and estate, to follow- up with a machine marker. Patient also interested in pursuing arrangements, provided information regarding [facility], and reviewed at this point in time there is really nothing more to do in the context of the other forms. We will continue to explore and answer patient's questions as needed, will defer her both to end-of-life [place] volunteer and hospice when trajectory known. Recommended given her anxiety, we did write down a list of things for her to follow through on, and the risk and wait. Reminded her that is why palliative care is following along, to help her at transition points, currently though she is doing better, continue to focus on both quality and quantity of life issues, she still wants to do treatment as long as she perceives it is not causing her more harm than good. 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 Her Ca1 25 continues to elevate, up to 261. She did have some acute develop worsening abdominal pain, this is improved but remains persistent up in the left upper quadrant, has resolved in the right upper quadrant. She is using oxycodone with good relief, will continue to evaluate. Palliative care continue to follow for pain and symptom management, advanced care planning, and anticipatory guidance. Recommendations/Counseling Done: 1. Pain of neoplastic origin. Patient had escalating pain, requiring higher doses of opioids, she did get some relief, unclear etiology of decline of pain. Would consider possible obstructive symptoms, resolved. She does continue with left upper quadrant persistent pain, requiring oxycodone 10 mg twice daily, going to add half to full tab in the middle the day, as it is not lasting more than 3 to 4 hours. She is somewhat hesitant to restart time-released opioids, will continue to evaluate. 2. Stage III high-grade serous fallopian cancer with metastatic disease. Patient does present with increased since Ca1 25, has switched to olaparib, unfortunately had not started at therapeutic dosing. Counseled to call in 2 oncology, and let them know mistake, as it will impact how they interpret her labs. On that note, patient has not been getting her labs to her Port-A-Cath, and has not had her port flushed for at least 6 a couple months. Patient recommended to get next blood draw through port and have flushed, as well as follow-up with her oncology team about her request to have her Port-A-Cath removed. She is not using it currently for blood draws, and currently not receiving any IV intervention. 3. Anxiety. Patient is doing fairly well, continues with fluctuating anxiety, does have multiple triggers at times. She is doing well on her venlafaxine 225 mg, with also control of her hot flashes. She is only needing the alprazolam for seeing the morning, and only occasionally if she gets panic attacks. 4. Constipation. Patient's usual is diarrhea secondary to Crohn's disease, with the reinitiation of the oxycodone, she has added back the MiraLAX with good regular BMs. Patient has significant short-term memory issues, reviewed titration of bowel meds again. She has made herself a chart to be able to track more easily. 5. Insomnia. Patient has discontinued her melatonin, is taking her Ambien 7.5 mg at night, had a difficult night last night, but otherwise is doing fairly well. 6. Advanced care planning. Patient continues to work forward on her end-of-life planning documents, she is interested in [facility]WD. She had printed off a significant information from end-of-life [place], reviewed what was most pertinent currently, and the process. Reassured can take this in a stepwise fashion, but I did encourage to have her wishes documented in her medical record with her next conversation with Dr. Fonseca. Counseling provided regarding the continuum of care, as well as reviewed other documents and planning she wanted to complete. Time Spent: 60 minutes with greater than 50% of this done in counseling regarding advanced care planning documents, pain and symptom management, and anticipatory guidance.
== END 2020-02-22 10:01 | disposition home or self-care (01) ==
LOC: PC 10:00
PROVIDERS: ATTEND Nurse Practitioner Adult Health
DX: Z51.5 Encounter for palliative care (principal); G89.3 Neoplasm related pain (acute) (chronic); R53.83 Other fatigue; F41.9 Anxiety disorder, unspecified; R63.4 Abnormal weight loss; K59.03 Drug induced constipation; T40.2X5A Adverse effect of other opioids, initial encounter; G47.00 Insomnia, unspecified; K50.90 Crohn's disease, unspecified, without complications; T50.996A Underdosing of other drugs, medicaments and biological substances, initial encounter; Z91.138 Patient's unintentional underdosing of medication regimen for other reason; C57.00 Malignant neoplasm of unspecified fallopian tube; C79.9 Secondary malignant neoplasm of unspecified site; Z79.899 Other long term (current) drug therapy; Z79.891 Long term (current) use of opiate analgesic; Z95.828 Presence of other vascular implants and grafts; Z66 Do not resuscitate
CPT/HCPCS: 99350

== ENCOUNTER 2020-03-01 08:00 | Outpatient (CLI) | payer MEDICAID ==
[2020-03-01 18:19] LABS: BASOPHILS % (AUTO) 0.7 %; EOSINOPHILS # (AUTO) 0.1 10^3/uL (0.0-0.7); EOSINOPHILS % (AUTO) 1.1 %; HGB - HEMOGLOBIN 11.7 g/dL (12.0-16.0); LYMPHOCYTES # (AUTO) 1.3 10^3/uL (1.5-3.5); LYMPHOCYTES % (AUTO) 23.7 %; MEAN CORPUSCULAR HEMOGLOBIN 33.7 pg (27.0-31.0); MEAN CORPUSCULAR HGB CONC 32.1 g/dL (32.0-36.0); MEAN CORPUSCULAR VOLUME 105.2 fL (81.0-99.0); MEAN PLATELET VOLUME 9.1 fL (7.9-10.8); MONOCYTES # (AUTO) 0.4 10^3/uL (0.0-1.0); MONOCYTES % (AUTO) 7.4 %; NEUTROPHILS # (AUTO) 3.7 10^3/uL (1.5-6.6); NEUTROPHILS % (AUTO) 66.4 %; PLT - PLATELET COUNT 325 10^3/uL (130-450); RED BLOOD COUNT 3.47 10^6/uL (4.20-5.40); RED CELL DISTRIBUTION WIDTH 13.9 % (12.0-15.0); WHITE BLOOD COUNT 5.5 x10^3/uL (4.8-10.8)
[2020-03-01 18:39] LABS: ALBUMIN 3.6 g/dL (3.2-5.5); ALBUMIN/GLOBULIN RATIO 1.2 (1.0-2.2); BILIRUBIN,TOTAL 0.3 mg/dL (0.2-1.0); CALCIUM 9.3 mg/dL (8.5-10.3); MAGNESIUM 1.8 mg/dL (1.7-2.8); TOTAL PROTEIN 6.7 g/dL (6.7-8.2)
== END 2020-03-01 23:59 | disposition home or self-care (01) ==
LOC: LAB.WCP 08:00
PROVIDERS: ATTEND Physician Assistant Medical
DX: C56.9 Malignant neoplasm of unspecified ovary (principal); Z79.899 Other long term (current) drug therapy
CPT/HCPCS: 36415; 80053; 83735; 85025; 86304

== ENCOUNTER 2020-03-20 10:00 | Outpatient (CLI) | payer MEDICAID ==
--- NOTE | 2020-03-20 20:14 | CONSULTATION NOTE ---
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 Showed small volume increase in peritoneal implants on the right adjacent to the sigmoid colon, and also noted left peritoneal nodularity at level of cecum and left kidney. This would actually correspond with patient's description of her current areas of pain and discomfort. Patient has struggled with constipation, resulting in need for mag citrate, and high doses of bowel meds. She does understand from oncology, there is no further treatment of curative intent, and has had a discussion with her about trialing palliative chemo to see if it helps with the pain. Patient is struggling with this decision, she had significant side effects previously with her chemo. She does not perceive this is quality of life, we did discuss we could certainly control her pain with medications, but would recommend at least trialing to see how she did, with the hope to improve the underlying etiology of the pain, and manage her opioid load at a lower dose. My other worry for her as obstructive symptoms, particularly given patient's propensity for constipation. Patient is quite focused on getting her affairs in order, she presents today with multiple forms and further questions regarding DWD. Her sister is here to provide support, patient has noted worsening cognitive effects, with forgetfulness, difficulty sometimes with word finding, and finds this quite frustrating. Past Medical History: Crohn's disease currently controlled, rhinitis, anxiety disorder, history of shingles, recent cataract surgery, rheumatoid arthritis, depression. hx of tobacco use/alcohol abuse Social History - Living Situation Living arrangement: At home Living Situation: With spouse/s.o. Support System: She lives with her significant other Willie, who she feels is struggling but coming to some place of acceptance of her decline as they are working through her EOL planning. She does have a son, and her sister is currently staying with her. Monie is retired has been active most of her life, involving gardening, crafting, and a [employer] business. Medications/Allergies - Medications Home Medications: Ambulatory Orders Medication Instructions Recorded Confirmed Multivitamin [Multivitamins] 1 cap PO DAILY 08/16/15 03/21/20 Zolpidem [Ambien] 7.5 mg PO QPM 09/21/19 03/21/20 Ondansetron [Zuplenz] 4 mg PO Q8HR PRN 09/22/19 03/21/20 Prochlorperazine Maleate 10 mg PO Q6HR PRN 09/22/19 03/21/20 Senna [Senokot] 3 tab PO TID 09/22/19 03/21/20 polyethylene glycoL 3350 [Miralax] 17 gm PO DAILY PRN 09/22/19 03/21/20 Alprazolam [Xanax] 0.5 mg PO Q6HR PRN MDD 6 10/04/19 03/21/20 Venlafaxine HCl [Venlafaxine HCl 225 mg PO DAILY 11/09/19 03/21/20 ER] Oxycodone HCl 10 mg PO Q4HR PRN 01/18/20 03/21/20 Morphine Sulfate [Ms Contin] 15 mg PO TID 03/21/20 03/21/20 - Allergies Allergies/Adverse Reactions: Allergies Allergy/AdvReac Type Severity Reaction Status Date / Time No Known Drug Allergies Allergy Verified 03/10/15 05:43 Review of Systems - Constitutional Constitutional: reports: Fatigue, Weight loss (155 12 pounds less then a month). denies: Fever, Chills - Eyes Eyes: reports: Vision loss - Ears, Nose & Throat Ears, Nose & Throat: reports: Nasal congestion. denies: Mouth lesions - Cardiovascular Cardiovascular: reports: Decr. exercise tolerance - Respiratory Respiratory: reports: SOB with exertion. denies: Cough, Wheezing, SOB at rest - Gastrointestinal Gastrointestinal: reports: Abdominal pain (left upper quadrant; now notes right upper quadrant), Constipation, Bloating, Poor appetite, Early satiety - Musculoskeletal Musculoskeletal: reports: Stiffness, Muscle weakness - Integumentary Integumentary: reports: Dryness - Neurological Neurological: reports: General weakness, Numbness, Memory problems (feels this continues to be frustrating and persistent) - Psychiatric Psychiatric: reports: Anxiety. denies: Depression - All Other Systems All Other Systems: reports: Reviewed and negative Physical Exam - Vital Signs Temperature: 96.6 C Pulse Rate: 58 Respiratory Rate: 16 O2 Saturation: 97 (ra @ rest) Blood Pressure: 118/72 - Physical Exam General Appearance: positive: Alert, Anxious (had got herself in "overwhelm" over EOL planning) Eyes Bilateral: positive: Normal inspection, No scleral icterus ENT: positive: No signs of dehydration Neck: positive: Trachea midline Cardiovascular: positive: Tachycardia (with any activity) Respiratory: positive: No respiratory distress, Breath sounds nml, Diminished in bases. negative: Wheezes, Rales, Rhonchi Abdomen: positive: Soft, Nml bowel sounds, Tenderness (left upper quadrant), Distended. negative: Mass Skin: positive: Pallor, Dryness Extremities: positive: No pedal edema Neurologic/Psychiatric: positive: Oriented x3, Mood/affect nml Palliative Care - POLST Patient has POLST: Yes POLST Status: DNR, Selective Treatment Pain: Pain improved, Location (see HPI), Comment (Currently he will using MS Contin 15 mg twice daily, with oxycodone 10 mg first thing in a.m. when her pain is worse, and possibly 1-2 times during the day depending on activity level.) Tiredness/Fatigue: Moderate (4-6), Comment (often going to bed early/ napping more) Drowsiness/Sedation: Mild (1-3) Nausea: Mild (1-3) (decreased with stopping PARP inhibitor) Anorexia: Moderate (4-6), Weight loss (12 pounds less than month) Dyspnea: Mild (1-3) Depression: Mild (1-3) Anxiety: Moderate (4-6), Comment (reports has not been having panic attacks though despite new news) Feelings of wellbeing/Perceived Quality of Life: Fair, Acceptable, Worsening Sleep: Sleeps well (worried about ambien RX; counted out is fine reassured and has refills) Constipation: Yes, Opoid induced, Unmanaged Performance Status: Patient struggles, as she wants to stay active though she is quite fatigued and does sometimes exacerbate her pain. She tends to be a "energizer bunny" and goes till she drops. Her sister is trying to help her pace herself more regularly. She is able to manage her own ADLs. Repeat her PPS of 70% - Palliative Care Discussion: Patient with some urgency to complete her end-of-life planning. She had a long list and pile of papers to review with SYSTEMS AUDITOR. Was able to simplify, and help prioritize what is most important. She is quite clear she wants to have DWD as a choice, she has been instructed to call end-of-life [place] for volunteer. They will help her in the proper steps, but she has put her request in and it is documented in her chart with Dr. Fonseca. I did reassure her the second provider could be the hospital remote medical coder which would be about the time most likely the medication would be prescribed when she transitions to hospice.Her provider is a PA, and cannot provide the supporting consulting documentation. We also went through prioritizing, as she and her S/O are not , important to get elementary school counselor on disposition of their estate. She does have her DPOA completed, we reviewed her POLST, will not transition to comfort measures until completion of chemotherapy trial. Helped her weight through and provide support for planning. She was feeling much better and less overwhelmed by end of visit. Also explored her goals of care, she is very hesitant regarding chemotherapy, we did discuss a trial of one treatment, she could try it and if it was to overwhelming or found the side effects not acceptable, palliative care and or transition to hospice will be able to manage her pain aggressively. This is her biggest fear, as well as any kind of extended suffering. Discussed if we had a avenue to treat the underlying etiology of the pain, would recommend giving it a try. We certainly are on low doses of opioids, but given her struggles with constipation and risk for obstruction, would be nice to stave off increasing opioid load. 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 She has had continued elevation of her [id number], and HE4. Her pain is currently managed with her regimen, though could be improved, she continues to struggle with constipation. She has high anxiety, and very much wants to get her end-of-life planning completed. Palliative care continue to follow for pain and symptom management, advanced care planning, and anticipatory guidance. Recommendations/Counseling Done: 1. Pain of neoplastic origin. Patient has had escalating pain, she had been instructed to restart her MS Contin 15 mg, was using it twice daily. We will increase it to 3 times daily, she is using oxycodone 10 mg for breakthrough pain, particularly first thing in the a.m. on awakening. Reviewed her medication list, she is tracking carefully, given her propensity for constipation, will await to see if she responds to chemotherapy, but most likely will transition her to fentanyl patch with next visit. Patient gets easily overwhelmed with changes, so we will have her do her chemo first. 2. Stage III high-grade serous fallopian cancer with metastatic disease. Patient did have confirmed progressive disease with hers CT scan, has met with Dr. Fonseca telemedicine, they are going to trial her on carbo/Doxil. Given patient's anxiety, and easily overwhelmed, will follow for side effects, patient to notify office when planned treatment known. Awaiting insurance approval, she does feel most likely is going to happen this week. 3. Anxiety. Despite patient's news of progressive disease she is doing fairly well. She does have multiple triggers often, she is currently doing well on her venlafaxine 225 mg, which is also been maximized for control of her hot flashes. She is using alprazolam 0.5 mg first thing in the morning, has not had any recent panic attacks. 4. Constipation. This is worsened with titration of opioids, she has been instructed to increase her senna to 2-3 tabs 3 times daily, and MiraLAX 17 g twice daily. 5. Insomnia. Patient gets quite anxious about running out of her Ambien, 7.5 mg is her ideal dose. We did count her pills and reassured her she has plenty until next refill. 6. Advanced care planning. Patient with long list of questions for SYSTEMS AUDITOR regarding documents, priorities, and end-of-life planning. Assisted patient in waiting through paperwork, simplified, and prioritized for her. Encouraged her to call end-of-life [place] to get a volunteer, she is feeling much better after completed counseling regarding this as well as anticipatory guidance. Time Spent: 60 minutes with greater than 50% of this done in counseling regarding end-of-life planning, pain and symptom management, and anticipatory guidance.
== END 2020-03-20 10:01 | disposition home or self-care (01) ==
LOC: PC 10:00
PROVIDERS: ATTEND Nurse Practitioner Adult Health
DX: Z51.5 Encounter for palliative care (principal); G89.3 Neoplasm related pain (acute) (chronic); C57.00 Malignant neoplasm of unspecified fallopian tube; C79.9 Secondary malignant neoplasm of unspecified site; F41.9 Anxiety disorder, unspecified; K59.03 Drug induced constipation; T40.2X5A Adverse effect of other opioids, initial encounter; G47.00 Insomnia, unspecified; Z66 Do not resuscitate
CPT/HCPCS: 99350

== ENCOUNTER 2020-04-10 11:45 | Outpatient (CLI) | payer MEDICAID ==
--- NOTE | 2020-04-10 17:50 | CONSULTATION NOTE ---
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 She started carbo/Doxil, and received her first infusion 04/03. She did fairly well the first day, but then became increasingly lethargic slept all the time, but got behind on her fluids, and had some mild confusion. In review of what she has done, I suspect it was exacerbated by the fact she took her zolpidem with her olanzipine. This was a new antiemetic for her she is to start in the evenings after her chemo, but hold her zolpidem. She did get frightened, yesterday she is very anxious, she went to [facility] on instruction from her oncologist team and received 1 Liter of normal saline, labs were within normal limits, negative urine, and no other abnormal findings. She did feel better, and is continue to feel better today. She remains quite distressed, regarding treatment versus no treatment, and now she is decided she wants to "fight", she does have difficulty with health literacy, we did review she is getting treatment at this point in time, and though yes the goal is to improve her pain management, it would also treat her cancer improve her prognosis as well. She does have a follow-up telehealth visit this Wednesday with Dr. Fonseca. She had been feeling very discouraged by her first round of chemotherapy, though now we have found most likely the culprit for her lethargy, we also discussed often there is a few days of feeling poorly but the rest of the month she has time to recover. Her pain is remaining well controlled she is taking MS Contin 50 mg 3 times daily, with oxycodone 10 mg, she has not needed any other further breakthrough pain, we did discuss decreasing her oxycodone to toleration, just to improve her fatigue, as well as decrease her opioid load. She does have her bowels currently controlled, constipation had been a previous problem. She denies any further nausea today. She does continue with some persistent fatigue, but it is tolerable as well. Past Medical History: Crohn's disease currently controlled, rhinitis, anxiety disorder, history of shingles, cataract surgery, rheumatoid arthritis, depression, history of tobacco use/alcohol abuse. Social History - Living Situation Living arrangement: At home Living Situation: With spouse/s.o. Support System: Patient lives with her significant other Willie, they have been together for 15 years. Her sister is currently staying with her, helping her manage her overall medical appointments. Monie is retired but has been more active most of her life, involving gardening, crafting, and a [employer] business. She does have 1 son. Medications/Allergies - Medications Home Medications: Ambulatory Orders Medication Instructions Recorded Confirmed Multivitamin [Multivitamins] 1 cap PO DAILY 08/16/15 04/11/20 Zolpidem [Ambien] 7.5 mg PO QPM 09/21/19 04/11/20 Ondansetron [Zuplenz] 4 mg PO Q8HR PRN 09/22/19 04/11/20 Prochlorperazine Maleate 10 mg PO Q6HR PRN 09/22/19 04/11/20 Senna [Senokot] 3 tab PO TID 09/22/19 04/11/20 polyethylene glycoL 3350 [Miralax] 17 gm PO DAILY PRN 09/22/19 04/11/20 Alprazolam [Xanax] 0.5 mg PO Q6HR PRN MDD 6 10/04/19 04/11/20 Venlafaxine HCl [Venlafaxine HCl 225 mg PO DAILY 11/09/19 04/11/20 ER] Oxycodone HCl 10 mg PO Q4HR PRN 01/18/20 04/11/20 Morphine Sulfate [Ms Contin] 15 mg PO TID 03/21/20 04/11/20 Dexamethasone [Decadron] 4 mg PO .QPDAY X3 04/11/20 04/11/20 OLANZapine [Zyprexa Zydis] 5 mg PO .QPM X 3 04/11/20 04/11/20 - Allergies Allergies/Adverse Reactions: Allergies Allergy/AdvReac Type Severity Reaction Status Date / Time No Known Drug Allergies Allergy Verified 03/10/15 05:43 Review of Systems - Constitutional Constitutional: reports: Fatigue, Weight loss (155 12 pounds less then a month). denies: Fever, Chills - Eyes Eyes: reports: Vision loss - Ears, Nose & Throat Ears, Nose & Throat: reports: Nasal congestion. denies: Mouth lesions - Cardiovascular Cardiovascular: reports: Lightheadedness, Decr. exercise tolerance. denies: Edema - Respiratory Respiratory: reports: SOB with exertion. denies: Cough, Wheezing, SOB at rest - Gastrointestinal Gastrointestinal: reports: Abdominal pain (left upper quadrant; now notes right upper quadrant), Nausea (Wednesday; did not use antiemetics), Bloating, Poor appetite, Early satiety. denies: Constipation (following bowel program with results) - Musculoskeletal Musculoskeletal: reports: Stiffness, Muscle weakness - Integumentary Integumentary: reports: Dryness - Neurological Neurological: reports: General weakness, Numbness, Memory problems (feels this continues to be frustrating and persistent) - Psychiatric Psychiatric: reports: Anxiety (significant; does get perservative and causes more distress). denies: Depression - All Other Systems All Other Systems: reports: Reviewed and negative Physical Exam - Vital Signs Temperature: 96.2 C Pulse Rate: 96 Respiratory Rate: 18 O2 Saturation: 99 (ra @ rest) Blood Pressure: 122/72 - Physical Exam General Appearance: positive: Alert, Anxious (had got herself in "overwhelm" with deciding to do chemo/"fight it") Eyes Bilateral: positive: Normal inspection, No scleral icterus ENT: negative: Dry mucous membranes Neck: positive: Trachea midline Cardiovascular: positive: Tachycardia (with any activity) Respiratory: positive: No respiratory distress, Breath sounds nml, Diminished in bases. negative: Wheezes, Rales, Rhonchi Abdomen: positive: Soft, Nml bowel sounds, Tenderness (left upper quadrant), Distended. negative: Mass Skin: positive: Pallor, Dryness Extremities: positive: No pedal edema Neurologic/Psychiatric: positive: Oriented x3, Mood/affect nml Palliative Care - POLST Patient has POLST: Yes POLST Status: DNR, Selective Treatment Pain: Pain improved, Location (left and right upper quadrant) Tiredness/Fatigue: Moderate (4-6) Drowsiness/Sedation: Moderate (4-6) Nausea: Mild (1-3) Anorexia: Mild (1-3) Dyspnea: Mild (1-3) Depression: Moderate (4-6) Anxiety: Severe (7-10) Feelings of wellbeing/Perceived Quality of Life: Fair, Acceptable Sleep: Sleeps well Constipation: Yes, Opoid induced, Managed Performance Status: Patient is complaining of increased fatigue and generalized weakness. Though she is ambulatory able to manage her own ADLs. She is still quite active around her house, but does take more frequent naps. She was significantly limited over the weekend, and slept most of the time, though is feeling she is coming out of this. - Palliative Care Discussion: Patient has got herself and overwhelmed again, feeling quite anxious. We were able to track back her lethargy and most likely drug interaction of using zolpidem and olanzapine why she had such a bad weekend. We did put forth a plan moving forward, patient's anxiety decreased and is willing to move forward. She is somewhat confused by her treatment plan, she reports it is "only to help the pain", we discussed they are treating her disease the hope visit will decrease her pain she wants to "fight" we discussed that receiving treatment is the way to decrease her tumor burden and prolong her prognosis as well. She continues to struggle with quality of life issues, had a couple different interactions with patients, encouraging her "not to give up the hope". We discussed that she has been quite hopeful, but does also quite pragmatic. She has moved forward and finished some of her estate planning steps, I did put her in touch with cancer care.or they do have an online support group, as she is wanting to attend a support group. We did discuss this is somewhat limited in the context of the pandemic, but this is read by [employer], and disease specific. Continue to provide psychosocial support, interpretation of medical information, and encouragement for defining her goals of care. Patient had been at another appointment prior to my arrival, was able to spend some time with her significant other Willie, and do a check in. He is quite anxious about her pending treatments, had been "a rough weekend". He tries to support her with her fluctuating anxiety, does understand the seriousness of her illness, and is deeply impacted by this. Results - Lab Results Lab results reviewed: Yes Lab and Imaging Results: Reviewed [facility] records, only abnormality was WBC was 11.4. 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 She has started carbo/Doxil, unfortunately had side effects from treatment over the weekend, necessitating ED visit with fluids. Patient continues to be quite anxious, has challenges managing her medication regimen, her pain though and constipation are currently controlled. She is continuing to complete her goals for end-of-life planning. Palliative care continue to provide support for pain and symptom management, advanced care planning, and anticipatory guidance. Recommendations/Counseling Done: 1. Pain of neoplastic origin. Patient's pain has currently been under control with MS Contin 15 mg 3 times daily, she does combine that with oxycodone 10 mg 3 times daily. She has not needed anything for breakthrough pain, and does feel indeed it might be improving. Counseling provided regarding titrating back oxycodone scheduled slowly, and use as as needed. Patient verbalized understanding. She does have a log that she is following. 2. Stage III high-grade serous fallopian cancer with metastatic disease. They are trialing her on carbo/Doxil, she has received her first treatment. She continues to fluctuate as far as treatment versus no treatment, unfortunately had a negative experience over the weekend, but have sorted this out. Patient very much at this point in time wants to "fight". Reviewed goal is to treat her cancer, as far as improving her pain management that would be a goal as well but not the only goal. She does meet with her on Wednesday, will update Dr. Fonseca on findings today. Counseling provided regarding next treatment, to not take zolpidem and with the olanzapine, this is written out, as well as pushing fluids, eating small amounts, using ondansetron for breakthrough nausea, and to call if getting into trouble sooner than later. 3. Anxiety. Patient has had an exacerbation of her anxiety, this is multifactorial. I suspect the dexamethasone did not help, she continues to get easily overwhelmed particularly with complexity of her medical regimen and understanding of her illness and treatment. Continue to try and work with her, reframe, simplify, and write things down for her. She has been on her venlafaxine 225 mg, which is also maximized for control for hot flashes currently effective. She also uses alprazolam 0.5 mg first thing in the morning, and for intermittent panic attacks. Provided patient with on line cancer support group through [email or web address] 4. Constipation. This is currently controlled on her MiraLAX and scheduled senna, she is titrating appropriately. 5. Insomnia. Patient is quite anxious about running out of Ambien, have provided a refill. She has been instructed though to hold that when she is taking her olanzapine. 6. Advanced care planning. Continue to work with patient's list of goals, she is moving forward on this. Is feeling more confident, we again set her goals for hoping for the best, for extended time as well as improved quality of life.
== END 2020-04-10 11:46 | disposition home or self-care (01) ==
LOC: PC 11:45
PROVIDERS: ATTEND Nurse Practitioner Adult Health
DX: Z51.5 Encounter for palliative care (principal); G89.3 Neoplasm related pain (acute) (chronic); C57.00 Malignant neoplasm of unspecified fallopian tube; F41.9 Anxiety disorder, unspecified; K59.00 Constipation, unspecified; G47.00 Insomnia, unspecified; K50.90 Crohn's disease, unspecified, without complications; Z87.891 Personal history of nicotine dependence; F10.11 Alcohol abuse, in remission; Z79.899 Other long term (current) drug therapy; Z66 Do not resuscitate
CPT/HCPCS: 99349

== ENCOUNTER 2020-04-29 | Outpatient (CLI) | payer MEDICAID ==
--- NOTE | 2020-04-29 11:21 | CONSULTATION NOTE ---
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 She did have a significant event with first chemo, most likely attributed to taking both her olanzapine and zolpidem on the same night, after chemo. She is somewhat anxious pending chemo this Wednesday, but we did review the instructions to not take her olanzapine at this point in time, though they had called in a prescription. Have been in contact with patient as patient's pain is been escalating, currently is on MS Contin 15 mg 3 times daily, pain is increased in left upper quadrant, radiating into the rib area, intermittently in the right lower quadrant. She does report her bowels are moving, though with significant amount of stool softener, MiraLAX 2-3 capfuls, and senna 3 tabs twice daily. She has used oxycodone 10 mg for intermittently for breakthrough pain, though continues to easily get confused regarding her medications. She does have a nice tracking sheet and has been taking them appropriately. She is sleeping without problems, her anxiety fluctuates, she had escalation last time I saw her, now she is much more calm. She does understand that her disease is being managed, is not curative in nature, and is back into settling in with hopes for it to help her pain, as well as her quality of life, though does recognize her prognosis is limited. She did have a nice holiday, was able to see her son. Her sister is coming to help her through this next chemo, though this is both a stressor as well as some support. She continues to move forward on her end-of-life planning documents and goals. She does present today with some symptoms of urinary retention, does feel like she is emptying her bladder, is going frequently. Though in reviewing her fluid intake, is pushing close to 2 gallons. Past Medical History: Crohn's disease, rhinitis, anxiety disorder, history of shingles, cataract surgery, rheumatoid arthritis, depression, history of tobacco/alcohol abuse Social History - Living Situation Living arrangement: At home (Patient lives with his significant other Willie, they have been together for 15 years. Her sister comes and goes, but provides transportation and support for medical appointments. She has 1 son, she is retired, though has worked most of her life.) Living Situation: With spouse/s.o. Medications/Allergies - Medications Home Medications: Ambulatory Orders Medication Instructions Recorded Confirmed Multivitamin [Multivitamins] 1 cap PO DAILY 08/16/15 04/29/20 Zolpidem [Ambien] 7.5 mg PO QPM 09/21/19 04/29/20 Ondansetron [Zuplenz] 4 mg PO Q8HR PRN 09/22/19 04/29/20 Prochlorperazine Maleate 10 mg PO Q6HR PRN 09/22/19 04/29/20 Senna [Senokot] 3 tab PO TID 09/22/19 04/29/20 polyethylene glycoL 3350 [Miralax] 17 gm PO BID 09/22/19 04/29/20 Alprazolam [Xanax] 0.5 mg PO Q6HR PRN MDD 6 10/04/19 04/29/20 Venlafaxine HCl [Venlafaxine HCl 225 mg PO DAILY 11/09/19 04/29/20 ER] Oxycodone HCl 10 mg PO Q4HR PRN 01/18/20 04/29/20 Morphine Sulfate [Ms Contin] 15 mg PO TID MDD Titrating to 30 03/21/20 04/29/20 mg TID Dexamethasone [Decadron] 4 mg PO .QPDAY X3 MDD with chemo 04/11/20 04/29/20 Omeprazole Magnesium 20 mg PO DAILY 04/29/20 04/29/20 - Allergies Allergies/Adverse Reactions: Allergies Allergy/AdvReac Type Severity Reaction Status Date / Time No Known Drug Allergies Allergy Verified 03/10/15 05:43 Review of Systems - Constitutional Constitutional: reports: Fatigue. denies: Fever, Chills - Eyes Eyes: reports: Vision loss - Ears, Nose & Throat Ears, Nose & Throat: denies: Mouth lesions (improved; still small lesion left corner of mouth), Bleeding gums - Cardiovascular Cardiovascular: reports: Lightheadedness (occasional), Decr. exercise tolerance (misses going to work out though) - Respiratory Respiratory: reports: SOB with exertion. denies: Cough, Wheezing, SOB at rest - Gastrointestinal Gastrointestinal: reports: Abdominal pain (left upper quadrant; now notes right upper quadrant infrequently), Reflux/heartburn (noted discomfort/heartburn worsening with eating), Bloating, Early satiety, Good appetite. denies: Constipation (following bowel program with results) - Genitourinary Genitourinary: reports: Other (urinary retention symptoms) - Musculoskeletal Musculoskeletal: reports: Stiffness, Muscle weakness - Integumentary Integumentary: reports: Dryness - Neurological Neurological: reports: General weakness, Numbness, Memory problems (feels this continues to be frustrating and persistent) - Psychiatric Psychiatric: reports: Anxiety (significant; does get perservative and causes more distress; feels like doing well today). denies: Depression - All Other Systems All Other Systems: reports: Reviewed and negative Physical Exam - Vital Signs Temperature: 96.0 C Pulse Rate: 96 Respiratory Rate: 18 O2 Saturation: 98 (ra @ rest) Blood Pressure: 148/93 - Physical Exam General Appearance: positive: Alert, Anxious (has improved) Eyes Bilateral: positive: Normal inspection, No scleral icterus ENT: negative: Dry mucous membranes Neck: positive: Trachea midline Cardiovascular: positive: Tachycardia (with any activity) Respiratory: positive: No respiratory distress, Breath sounds nml, Diminished in bases. negative: Wheezes, Rales, Rhonchi Abdomen: positive: Soft, Nml bowel sounds, Tenderness (left upper quadrant), Distended (mild). negative: Mass Skin: positive: Pallor, Dryness Extremities: positive: No pedal edema Neurologic/Psychiatric: positive: Oriented x3, Mood/affect nml Palliative Care - POLST Patient has POLST: Yes POLST Status: DNR, Selective Treatment Pain: Pain worsening (pain intensity worsening; added discomfort with eating) Tiredness/Fatigue: Moderate (4-6) Drowsiness/Sedation: Mild (1-3) Nausea: Mild (1-3) Anorexia: Mild (1-3) Dyspnea: Mild (1-3) Depression: Mild (1-3) Anxiety: Moderate (4-6) Feelings of wellbeing/Perceived Quality of Life: Fair, Acceptable Sleep: Sleeps well Constipation: Yes, Opoid induced, Managed Performance Status: Patient able to manage her ADLs, she would like to be more active. She was quite disappointed the local gym had shut down as she liked working on the machines. She is unable to manage her 3 dogs, so has not been out walking. I would put her at a PPS of 80% - Palliative Care Discussion: Patient had gotten herself into a "want to fight mode". She does understand though the seriousness of her illness, and again the goals are to focus on relieving her pain, and hopefully improving her quantity of time. She feels like today she is more accepting of her diagnosis, she still "wants to know" as far as a timeline, we did discuss though in the context of this what she would be doing differently. She would like to go on a trip with Willie, she has some letter she wants to write, we did discuss in the context of this also at this point in time she is functional, feeling okay, would recommend plan her trip sooner than later. She is of course limited by the pandemic. 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 She will be receiving second round of carbo Doxil, unfortunately had significant side effects from treatment. She is somewhat anxious pending her treatment, we did review again managing her medications, and nausea, as well as balancing her fluid intake. She has had an increase in her pain, and titrating pain medications to for better effect. Palliative care continue provide support for pain and symptom management, advanced care planning and anticipatory guidance Recommendations/Counseling Done: 1. Pain of neoplastic origin. Patient's pain had been doing fairly well with MS Contin 15 mg 3 times a day, she had been using oxycodone scheduled with this, felt like she was doing better and backed off unfortunately. She treated h erself another round of withdrawal, have titrated her back up to 15 mg 3 times daily, and pain is still not well controlled, will increase her up to 30 for 3 times daily with adding 15 mg every 3 to 4 days until meet goal. Counseling provided again regarding long and short acting medications, does find this a difficult concept. 2. Constipation. Patient is currently managed on Miralax 2-3 capfuls a day, as well as senna 3 tabs twice daily, discussed to watch closely if having increased trouble to increase to 3 tabs 3 times daily with increase in pain meds. Patient verbalized understanding. All instructions are provided written as patient does have severe short-term memory issues. 3. Anxiety. Patient's anxiety is better, last time I saw her she had had an exacerbation. She does get easily overwhelmed, she is at a place now of acceptance again, is still wondering about her prognosis, she has been managed with venlafaxine 225 mg, which is maximized for control of hot flashes, cur rently effective. She also uses alprazolam 0.5 mg first thing in the morning, and for intermittent panic attacks. 4. GERD. Patient is having increased pain, does sound fairly consistent with heartburn and GERD, will start her on omeprazole 20 mg daily. Prescription called to [facility]. 5. Advanced care planning. Patient continues to get her tasks done, she has completed her plans, is finishing up with her estate planning with her S0, has taken DWD as far she can in till she gets her 6-month prognosis. Time Spent: 50 minutes with greater than 50% of this done in counseling regarding pain and symptom management, anticipatory guidance, and coordination of care.
== END 2020-04-29 11:17 | disposition home or self-care (01) ==
CPT/HCPCS: 99349

== ENCOUNTER 2020-05-09 10:20 | Outpatient (CLI) | payer MEDICAID ==
--- OUTSIDE RECORDS SUMMARY | 2020-05-15 01:05 | EXTERNAL MEDICAL SUMMARY RPT | Continuity of Care Document ---
:1955 Demographics Phone Unavailable Preferred Language Kittitian Marital Status Unknown Mandaeism Affiliation Unknown Race Unknown Ethnic Group Unknown Author Organization [place] Address [address] [place] [address] Phone Care Team Providers Name Role Phone PA-C Unavailable Unavailable Holiday Unavailable Unavailable Problems date description facility Finding [facility] Ex-smoker (finding) [facility] 2019-11-15 15:[address] [facility] unspecified ovary 2020-02-15 00:00 MALIGNANT NEOPLASM OF [facility] UNSPECIFIED OVARY 2020-02-15 08:00 MALIGNANT NEOPLASM OF [facility] UNSPECIFIED OVARY 2020-03-01 00:00 MALIGNANT NEOPLASM OF [facility] UNSPECIFIED OVARY 2020-03-01 00:00 OTHER HALFWAY (CURRENT) DRUG [facility] THERAPY 2020-03-01 08:00 MALIGNANT NEOPLASM OF [facility] UNSPECIFIED OVARY 2020-03-01 08:00 OTHER HALFWAY (CURRENT) DRUG [facility] THERAPY 2020-03-07 10:[address] [facility] unspecified ovary 2020-04-04 00:00:00 US VENOUS, LOWER EXTREMITY, [facility] BIL[facility]AL [facility] 2020-04-10 00:00:00 Other dyspnea and respiratory [facility] abnormality [facility] 2020-04-10 00:00:00 Other forms of dyspnea [facility] Primary [facility] 2020-04-10 00:00:00 Health-related behavior [facility] Primary [facility] 2020-04-10 00:00:00 Tobacco use and exposure [facility] Primary [facility] 2020-04-10 00:00:00 Exercise [facility] Prim [facility] 2020-04-10 00:00:00 Details of drug misuse behavior [facility] Primary Care [facility] 2020-04-10 00:00:00 [facility]ysp[facility] 2020-04-10 00:00:00 Alcohol use [facility] 2020-04-10 00:00:00 Tobacco smoking status NHIS [facility] 2020-04-10 00:00:00 Total score? [facility] 2020-04-10 00:00:00 Former smoker [facility] 2020-05-01 00:00:00 Other specified noninflammatory idb [facility] disorders of vagina [facility] 2020-05-01 00:00:00 Noninflammatory disorder of [facility] vagina, unspecified [facility] 2020-05-01 00:00:[facility] 2020-05-01 00:00:00 [facility] 2020-05-01 00:00:00 [facility] 2020-05-01 00:00:00 [facility] 2020-05-01 00:00:00 Details of drug misuse behavior idb [facility] Primary [facility] 2020-05-01 00:00:00 Little interest or pleasure in [facility] doing things? [facility] 2020-05-01 00:00:00 Feeling down, depressed, or [facility] hopeless? [facility] 2020-05-01 00:00:00 Patient Health Questionnaire [facility] item (PHQ2) total score [facility] 2020-05-01 00:00:00 Alcohol use [facility] 2020-05-01 00:00:00 Tobacco smoking status NHIS [facility] 2020-05-01 00:00:00 Total score? [facility] 2020-05-01 00:00:00 [facility] Allergies date description facility No Known Drug Allergies [facility] Medic [facility] NO KNOWN ENVIRONMENTAL ALLERGIES [facility] No Known Drug Allergies [facility] ATORVASTATIN [facility] GABAPENTIN [facility] MELOXICAM [facility] METOPROLOL [facility] NO KNOWN ALLERGIES [facility] CHOCOLATE [facility] COFFEE [facility] LACTOSE [facility] MILK-RELATED COMPOUNDS [facility] FOOD [facility] GRAMINEAE POLLENS [facility] SULFITES [facility] WHEAT [facility] No Known Drug Allergies [facility] Medications date description facility 2020-02-16 00:00:00 null [facility] 2020-02-16 00:00:00 null [facility] 2020-02-16 00:00:00 null [facility] 2020-02-16 00:00:00 null [facility] 2020-02-16 00:00:00 null [facility] 2020-02-16 00:00:00 null [facility] 2020-02-16 00:00:00 null [facility] 2020-02-16 00:00:00 null [facility] 2020-02-16 00:00:00 null [facility] 2020-02-16 00:00:00 null [facility] 2020-02-16 00:00:00 ALPRAZOLAM [facility] 2020-02-16 00:00:00 OLAPARIB TABS [facility] 2020-02-16 00:00:00 ONDANSETRON [facility] 2020-02-16 00:00:00 OXYCODONE HCL [facility] 2020-02-16 00:00:00 VENLAFAXINE HCL [facility] 2020-02-16 00:00:00 ONDANSETRON [facility] 2020-02-16 00:00:00 OXYCODONE HCL [facility] 2020-02-16 00:00:00 OLAPARIB TABS [facility] 2020-02-16 00:00:00 ALPRAZOLAM [facility] 2020-02-16 00:00:00 VENLAFAXINE HCL [facility] 2020-04-10 00:00:00 null [facility] 2020-04-10 00:00:00 null [facility] 2020-04-10 00:00:00 MORPHINE SULFATE TABS [facility] 2020-04-10 00:00:00 MORPHINE SULFATE TABS [facility] Procedures date description facility 2020-03-07 00:00:00 [facility] date description facility 2020-04-09 00:00:00 [facility] Results Social History date description facility [id number] Ex-smoker (finding) [facility] date description facility 2020-04-10 00:00:00 Former smoker [facility] date description facility 2020-05-01 00:00:00 Former smoker [facility] Social History date description facility [id number] Ex-smoker (finding) [facility] date description facility 2020-04-10 00:00:00 Former smoker [facility] date description facility 2020-05-01 00:00:00 Former smoker [facility] date description facility [id number]
== END 2020-05-09 10:21 | disposition home or self-care (01) ==
LOC: COV 10:20
PROVIDERS: ATTEND Family Medicine
DX: R53.83 Other fatigue (principal); R07.0 Pain in throat; R43.9 Unspecified disturbances of smell and taste; J34.89 Other specified disorders of nose and nasal sinuses; R11.0 Nausea; Z20.822 Contact with and (suspected) exposure to COVID-19

== ENCOUNTER 2020-05-22 10:30 | Outpatient (CLI) | payer MEDICAID ==
--- NOTE | 2020-05-22 18:02 | CONSULTATION NOTE ---
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 She has had some difficulty with side effects, including nausea and persistent fatigue. She did develop severe mucositis last round, this time some sore throat as well as changes in her corner of her lips and mouth. These are finally starting to heal. Her biggest complaints have been the persistent nausea, and metallic taste. She is concerned though she does feel like her cancer is continuing to persist.Her pain is continuing to escalate, unfortunately we get on top of it and in control, then she thinks she is fine and she titrates her medication back. She does though admit to increased pain, she does have pain in her left lower thoracic area, this does coincide with her CT scan that did show peritoneal implants in this area. She does have point tenderness on exam, though no palpable mass. She is also developed pain in her right lower quadrant area, which radiates around her lower abdomen as well. She does have a history of alcohol abuse, and remains quite worried about using "too much". We have had continue conversations and education regarding this. Currently she is on MS e xtended release 15 mg 3 times daily, with oxycodone for breakthrough pain. She is on very low doses, and is most likely undermedicated at this point in time. She has no side effects as far as sedation, she has been struggling with constipation, and continues with painful defecation. This is wax and wane, and unclear how much is or possible related to her ulcerative colitis. Patient also describes intermittent abdominal bloating, fluctuating lower extremity edema, concern possibly for ascites though is feeling better today. Past Medical History: Crohn's disease, rhinitis, anxiety disorder, history of shingles, cataract surgery, rheumatoid arthritis, depression, history of tobacco/alcohol abuse Social History - Living Situation Living arrangement: At home (Patient lives with his significant other Willie, they have been together for 15 years. Her sister comes and goes, but provides transportation and support for medical appointments. She has 1 son, she is retired, though has worked most of her life.) Living Situation: With spouse/s.o. Medications/Allergies - Medications Home Medications: Ambulatory Orders Medication Instructions Recorded Confirmed Multivitamin [Multivitamins] 1 cap PO DAILY 08/16/15 05/23/20 Zolpidem [Ambien] 7.5 mg PO QPM 09/21/19 05/23/20 Ondansetron [Zuplenz] 4 mg PO Q8HR PRN 09/22/19 05/23/20 Prochlorperazine Maleate 10 mg PO Q6HR PRN 09/22/19 05/23/20 Senna [Senokot] 3 tab PO TID 09/22/19 05/23/20 polyethylene glycoL 3350 [Miralax] 17 gm PO BID 09/22/19 05/23/20 Alprazolam [Xanax] 0.5 mg PO Q6HR PRN MDD 6 10/04/19 05/23/20 Venlafaxine HCl [Venlafaxine HCl 225 mg PO DAILY 11/09/19 05/23/20 ER] Oxycodone HCl 10 mg PO Q4HR PRN 01/18/20 05/23/20 Morphine Sulfate [Ms Contin] 15 mg PO TID MDD Titrating to 30 03/21/20 05/23/20 mg TID Dexamethasone [Decadron] 4 mg PO .QPDAY X3 MDD with chemo 04/11/20 05/23/20 Omeprazole Magnesium 20 mg PO DAILY 04/29/20 05/23/20 - Allergies Allergies/Adverse Reactions: Allergies Allergy/AdvReac Type Severity Reaction Status Date / Time No Known Drug Allergies Allergy Verified 03/10/15 05:43 Review of Systems - Constitutional Constitutional: reports: Fatigue, Weakness, Weight stable. denies: Fever, Chills - Eyes Eyes: reports: Vision loss - Ears, Nose & Throat Ears, Nose & Throat: reports: Mouth lesions (small lesions in corner of mouth). denies: Bleeding gums - Cardiovascular Cardiovascular: reports: Edema (flucutates), Exertional dyspnea, Decr. exercise tolerance - Respiratory Respiratory: reports: SOB with exertion. denies: Cough, Wheezing, SOB at rest - Gastrointestinal Gastrointestinal: reports: Abdominal pain (left upper quadrant; now notes right lower groin/abdominal area), Reflux/heartburn (noted discomfort/heartburn worsening with eating), Bloating, Early satiety, Good appetite. denies: Constipation (following bowel program with results) - Genitourinary Genitourinary: reports: Frequency - Musculoskeletal Musculoskeletal: reports: Stiffness, Muscle weakness - Integumentary Integumentary: reports: Dryness - Neurological Neurological: reports: General weakness, Numbness, Memory problems (feels this continues to be frustrating and persistent) - Psychiatric Psychiatric: reports: Anxiety (significant; does get perservative and causes more distress;). denies: Depression - All Other Systems All Other Systems: reports: Reviewed and negative Physical Exam - Vital Signs Temperature: 96.9 C Pulse Rate: 101 Respiratory Rate: 18 O2 Saturation: 98 (ra @ rest) Blood Pressure: 131/74 - Physical Exam General Appearance: positive: Alert, Anxious (fluctuates) Eyes Bilateral: positive: Normal inspection, No scleral icterus ENT: negative: Dry mucous membranes Neck: positive: Trachea midline Cardiovascular: positive: Tachycardia (with any activity) Respiratory: positive: No respiratory distress, Breath sounds nml, Diminished in bases. negative: Wheezes, Rales, Rhonchi Abdomen: positive: Soft, Nml bowel sounds, Tenderness (left upper quadrant and right lower quadrent; point tenderness at rib border left side). negative: Mass Skin: positive: Pallor, Dryness Extremities: positive: No pedal edema (on exam) Neurologic/Psychiatric: positive: Oriented x3, Mood/affect nml Palliative Care - POLST Patient has POLST: Yes POLST Status: DNR, Selective Treatment Pain: Pain worsening, Comment (see [id number]) Tiredness/Fatigue: Moderate (4-6) Drowsiness/Sedation: Moderate (4-6) Nausea: Moderate (4-6) Anorexia: Moderate (4-6) Dyspnea: Moderate (4-6) Depression: Mild (1-3) Anxiety: Moderate (4-6) Feelings of wellbeing/Perceived Quality of Life: Fair, Acceptable, Worsening Sleep: Sleeps well Constipation: Yes, Opoid induced, Unmanaged Performance Status: Patient is still very active, though perceives herself is slowing down. She is spending more time on the couch, sedentary, not walking as much. She is able to manage her ADLs, and still does much of the household tasks. - Palliative Care Discussion: Patient is quite reflective today, she reports she can feel things changing in her body. She is committed to doing the 3 treatments, though feels like with her CA-125 continuing to escalate, the most likely are not working. She is having increased pain and symptom burden. She has been asking herself "whom I doing this for". She has done a very nice job of wrapping up all her end-of-life planning, and has completed the most of it now and feels some relief with this. Her sister is coming to help her with her next chemo, this is a double edge sword for her. 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 She has completed 2 of 3 carbo/Doxil with side effects from her treatment. She continues with fairly high symptom burden, with progressive pain, persistent nausea, worsening fatigue, and beginning to note some functional decline. Palliative care continue provide support for pain and symptom management, advanced care planning and anticipatory guidance. Recommendations/Counseling Done: 1. Pain of neoplastic origin. Patient's pain does appear to be increasing, patient tends to get her pain under: Troll, and then tries to titrate back her pain medications here in 1 of those cycles again. Though she does describe increasing severity, persistence of her pain, as well as some new areas. Will titrate her up she is currently on MS Contin 30 mg a.m., 50 mg noon, and 50 mg p.m., will increase her up to 30 mg 3 times daily. Reviewed yet again, the concept and use of oxycodone for breakthrough pain, she has many concerns and anxiety regarding taking pain medications with her history of alcohol abuse in the past. Counseling provided regarding long and short acting medications, she does have a chart, is trying to stay on top of it. 2. Constipation. Patient is having painful defecation, she is currently on MiraLAX and senna, will continue to titrate to effect. She had been instructed to increase to 3 tabs 3 times daily, with her pain meds, she is only been doing to 3 times a day, will increase today. Patient verbalizes understanding. All instructions continue BB provided written as patient has severe short-term memory issues. 3. Anxiety. Patient anxiety is currently controlled. She is doing fairly well managed on her venlafaxine 225 mg which is maximized for control of her hot flashes. She also uses alprazolam on 0.5 mg first thing in the morning, and for intermittent panic attacks, but has not had any recently. 4. GERD. Patient has been taking omeprazole with better control of her heartburn and GERD. 5. Advanced care planning. Patient continues to move towards her end-of-life planning task, she is almost totally complete. She has found this quite reassuring to have this completed. She continued weight benefit and burdens of moving forward with treatment, is planning to do third treatment and make a decision after her next scan. Patient does want to do DWD, will await patient's prognosis with next scan to move forward. Time Spent: 60 minutes with greater than 50% of this done in pain and symptom management, counseling, and anticipatory guidance.
== END 2020-05-22 10:31 | disposition home or self-care (01) ==
LOC: PC 10:30
PROVIDERS: ATTEND Nurse Practitioner Adult Health
DX: Z51.5 Encounter for palliative care (principal); G89.3 Neoplasm related pain (acute) (chronic); C57.00 Malignant neoplasm of unspecified fallopian tube; C79.9 Secondary malignant neoplasm of unspecified site; K59.03 Drug induced constipation; T40.2X5A Adverse effect of other opioids, initial encounter; R11.0 Nausea; R53.83 Other fatigue; J02.9 Acute pharyngitis, unspecified; T45.1X5A Adverse effect of antineoplastic and immunosuppressive drugs, initial encounter; F41.9 Anxiety disorder, unspecified; K21.9 Gastro-esophageal reflux disease without esophagitis; R41.3 Other amnesia; Z87.891 Personal history of nicotine dependence; Z66 Do not resuscitate
CPT/HCPCS: 99350

== ENCOUNTER 2020-06-04 10:00 | Outpatient (CLI) | payer MEDICAID ==
--- NOTE | 2020-06-04 13:32 | CONSULTATION NOTE ---
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 She is done very poorly with this, unfortunately she did not follow directions regarding her dexamethasone for several days, has severe metallic taste, and has been in bed for the last 3 to 4 days. She did not take any of her meds for the last 24 to 48 hours, and is presenting with withdrawal symptoms both from the venlafaxine and the morphine. Unfortunately this is not a new pattern behavior, she gets overwhelmed, and ends up taking "nothing", is finally starting to feel better today, did take her morning medications with resolution of multiple symptoms she was having including dizziness, fatigue, and increased confusion. She currently denies any mucositis, she reports her bowels are moving, she has been taking prochlorperazine 10 mg in the a.m. with control of her nausea. Previous to her infusion, she was having escalation of her pain, she was up to 30 mg extended release morphine 3 times a day, with intermittent oxycodone. She reports after treatment, her pain improved, I suspect it may be related to the introduction of dexamethasone as part of her premedication. Her sister is with her, has been pushing Pedialyte and fluids, patient has not felt like eating. Sister was not aware she was not taking her pills until this a.m. Patient continues to have intermittent abdominal bloating, her pain is better today her pain is mostly located in her left lower thoracic quadrant area as well as her right lower quadrant area. She was having increased dizziness on presentation it looks like to her appointment last week. Past Medical History: Crohn's disease, rhinitis, anxiety disorder, history of shingles, cataract surgery rheumatoid arthritis depression, history of tobacco/alcohol abuse Social History - Living Situation Living arrangement: At home (Patient lives with his significant other Willie, they have been together for 15 years. Her sister comes and goes, but provides transportation and support for medical appointments. She has 1 son, she is retired, though has worked most of her life.) Living Situation: With spouse/s.o. Medications/Allergies - Medications Home Medications: Ambulatory Orders Medication Instructions Recorded Confirmed Multivitamin [Multivitamins] 1 cap PO DAILY 08/16/15 06/04/20 Zolpidem [Ambien] 7.5 mg PO QPM 09/21/19 06/04/20 Ondansetron [Zuplenz] 4 mg PO Q8HR PRN 09/22/19 06/04/20 Prochlorperazine Maleate 10 mg PO Q6HR PRN 09/22/19 06/04/20 Senna [Senokot] 3 tab PO TID PRN 09/22/19 06/04/20 polyethylene glycoL 3350 [Miralax] 17 gm PO BID 09/22/19 06/04/20 Alprazolam [Xanax] 0.5 mg PO Q6HR PRN MDD 6 10/04/19 06/04/20 Venlafaxine HCl [Venlafaxine HCl 225 mg PO DAILY 11/09/19 06/04/20 ER] Oxycodone HCl 10 mg PO Q4HR PRN 01/18/20 06/04/20 Morphine Sulfate [Ms Contin] 15 mg PO TID 03/21/20 06/04/20 Dexamethasone [Decadron] 4 mg PO .QPDAY X4 04/11/20 06/04/20 Omeprazole Magnesium 20 mg PO DAILY 04/29/20 06/04/20 - Allergies Allergies/Adverse Reactions: Allergies Allergy/AdvReac Type Severity Reaction Status Date / Time No Known Drug Allergies Allergy Verified 03/10/15 05:43 Review of Systems - Constitutional Constitutional: reports: Fatigue (has been in bed since ), Weakness, Weight stable. denies: Fever, Chills - Eyes Eyes: reports: Vision loss - Ears, Nose & Throat Ears, Nose & Throat: denies: Mouth lesions, Bleeding gums - Cardiovascular Cardiovascular: reports: Decr. exercise tolerance. denies: Palpitations, Edema - Respiratory Respiratory: reports: SOB with exertion. denies: Cough, Wheezing, SOB at rest - Gastrointestinal Gastrointestinal: reports: Abdominal pain (left upper quadrant; now notes right lower groin/abdominal area), Reflux/heartburn (noted discomfort/heartburn worsening with eating; has not been taking omeprazole as instructed), Bloating, Early satiety, Good appetite. denies: Constipation (following bowel program with results) - Genitourinary Genitourinary: reports: Frequency - Musculoskeletal Musculoskeletal: reports: Stiffness, Muscle weakness - Integumentary Integumentary: reports: Dryness - Neurological Neurological: reports: General weakness, Numbness, Memory problems (feels this continues to be frustrating and persistent; interfering with patient able to adhere to instructions) - Psychiatric Psychiatric: reports: Anxiety (significant; does get perservative and causes more distress;). denies: Depression - All Other Systems All Other Systems: reports: Reviewed and negative Physical Exam - Vital Signs Temperature: 96.5 C Pulse Rate: 99 Respiratory Rate: 16 O2 Saturation: 98 (ra @ rest) Blood Pressure: 148/98 - Physical Exam General Appearance: positive: Alert, Anxious (fluctuates) Eyes Bilateral: positive: Normal inspection, No scleral icterus ENT: negative: Dry mucous membranes Neck: positive: Trachea midline Cardiovascular: positive: Tachycardia (with any activity) Respiratory: positive: No respiratory distress, Breath sounds nml, Diminished in bases. negative: Wheezes, Rales, Rhonchi Abdomen: positive: Soft, Nml bowel sounds, Tenderness (left upper quadrant and right lower quadrent; point tenderness at rib border left side). negative: Mass Skin: positive: Pallor, Dryness Extremities: positive: No pedal edema (on exam) Neurologic/Psychiatric: positive: Oriented x3, Weakness, Depressed mood/affect Palliative Care - POLST Patient has POLST: Yes POLST Status: DNR, Selective Treatment Pain: Pain improved, Location (had not taken meds until this am for 2 days;), Comment (returned to regimen of 15 mg SR Morphine tid, with oxycodone 10 mg for BTP) Tiredness/Fatigue: Severe (7-10) Drowsiness/Sedation: Mild (1-3) Nausea: Mild (1-3) Anorexia: Moderate (4-6) (metallic taste) Dyspnea: Moderate (4-6) (with activity) Depression: Moderate (4-6) Anxiety: Severe (7-10) Feelings of wellbeing/Perceived Quality of Life: Poor, Worsening, Comment (feels chemo is very impactful and not adding to QOL/distressed today) Sleep: Variable sleep pattern Constipation: Yes, Opoid induced, Intermittent constipation Performance Status: Patient has had no energy since chemo, is mostly been in bed sleeping for long periods of time. She is able to manage her ADLs, she is ambulatory, she has had energy and some functional decline over the last several weeks. She is quite discouraged, she very much likes to take walks and "exercise". - Palliative Care Discussion: Patient continues to struggle with her decision regarding whether to continue treatment or not. She is very much struggled with his last round of treatments carbo/Doxil with severe side effects in managing. She gets easily overwhelmed, and confused. She has not been taking her medications, nor did she follow instructions from oncology TREATMENT TECHNICIAN about how best to follow-up with her nausea medications. She is trying to discern what she is doing this for, she herself feels like she has had enough, but feels like she is doing it for family. We did discuss again conversations/questions for/ with oncology, regarding benefits versus burdens, and prognosis expected with or without treatment. She does not perceive her quality of life as worthwhile while she has been dealing with the side effects, though when she comes off of these, she often waits and differently. She does have a CT scan pending, is awaiting her appointment with Dr. Fonseca as well as results of testing, to help her decide what is next. 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 She has just completed 3 of 3 carbo/Doxil with again side effects from her treatment. She continues with high symptom burden, with pain, intermittent nausea, worsening fatigue, and notable both functional and cognitive decline. She continues to struggle with weighing benefits and burdens of continuing treatment or letting go. Palliative care continue provide support for pain and symptom management and assist with medication adherence as well as anticipatory guidance Recommendations/Counseling Done: 1. Pain of neoplastic origin. Patient reports pain had improved since , but had also forgotten to take her pain medication. Her severity had been increasing fairly rapidly, she had increased to 30 mg 3 times daily prior to last week. Will restart at 15 mg 3 times daily with oxycodone for breakthrough. Counseling provided and reinforced yet again regarding long and short acting medications, did enlist the help of her sister, with teaching and instructions for them to do this is a team. Patient gets overwhelmed, and does not follow directions appropriately. Patient had not used her dexamethasone after chemotherapy, given her severe fatigue and distress, will go ahead and have her take dexamethasone 4 mg for 4 days to see if this improves her wellbeing, pain, as well has fatigue. 2. GERD. Patient has been instructed to take omeprazole daily, for some reason this dropped off. She had better control of her heartburn and will reinitiate. This is written on her chart. 3. Constipation. Patient continues to struggle with following or adhering/titrating her bowel program. Currently she is just using MiraLAX with full dose 2-3 times a day, she has in her mind Senokot has caused her constipation. She continues to get mixed up regarding her meds. 4. Anxiety. Patient continues with fluctuating anxiety, particularly around chemotherapy. She had been managing on her venlafaxine 225 mg which was maximized for control of her hot flashes. She does use alprazolam 0.5 mg first thing in the morning, she has not had any recent panic attacks. Though she is having significant distress regarding decision to continue or not with chemotherapy. 5. Advanced care planning. Patient continues to complete her end-of-life planning tasks, she continues to perseverate and worry about what she should do as far as treatment. She does have a pending CT scan, and worries both in continuing versus not continuing sequela from this. Palliative care continue provide ongoing support for pain and symptom management and anticipatory guidance. She has been instructed to contact with any symptom management needs. Time Spent: 60 minutes with greater than 50% of this done in counseling regarding medication management, anticipatory guidance, and coordination of care with oncology team
== END 2020-06-04 10:01 | disposition home or self-care (01) ==
LOC: PC 10:00
PROVIDERS: ATTEND Nurse Practitioner Adult Health
DX: Z51.5 Encounter for palliative care (principal); G89.3 Neoplasm related pain (acute) (chronic); T50.996A Underdosing of other drugs, medicaments and biological substances, initial encounter; Z91.138 Patient's unintentional underdosing of medication regimen for other reason; C57.00 Malignant neoplasm of unspecified fallopian tube; C79.9 Secondary malignant neoplasm of unspecified site; K21.9 Gastro-esophageal reflux disease without esophagitis; K59.00 Constipation, unspecified; F41.9 Anxiety disorder, unspecified; Z87.891 Personal history of nicotine dependence; F10.11 Alcohol abuse, in remission; Z66 Do not resuscitate
CPT/HCPCS: 99350

== ENCOUNTER 2020-07-03 11:15 | Outpatient (CLI) | payer MEDICAID ==
--- NOTE | 2020-07-03 17:02 | CONSULTATION NOTE ---
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 She did do better this round with less fatigue, managed nausea, with using the dexamethasone as prescribed, as well as the olanzapine 5 mg in the a.m. for 3 days. But unfortunately did happen for her though as it exacerbated her anxiety, suspect it was the steroids. She has completed these now, and reassured that this should improve. She is somewhat distressed by that "nasty taste", but so far no mucositis, and has been getting up and not sleeping through the day. Patient has not changed her pain regimen, and has done better, she is currently on MS Contin 15 mg 3 times daily, with a scheduled oxycodone 10 mg at 1400. Her pain is still persistent on her left side, worsens with pressure, and fluctuates in intensity without any pattern. She does feel currently it is controlled, she has not had any recurrent pain on her right side. She does have intermittent abdominal bloating. Patient has gained about 10 pounds, does admit to having a sugar addiction that has escalated., Is drinking sugary pops, eating donuts and cookies, as well as her candy stash. Patient continues to struggle with her goals, weighing benefits and burdens of continuing treatment, at this point in time though feels quite pressured by her family to soldier on. She is somewhat encouraged that she did better this round. Past Medical History: Crohn's disease, rhinitis, anxiety disorder, history of shingles, cataract surgery, rheumatoid arthritis, depression, history of tobacco/alcohol abuse Social History - Living Situation Living arrangement: At home (Patient lives with his significant other Willie, they have been together for 15 years. Her sister comes and goes, but provides transportation and support for medical appointments. She has 1 son, she is retired, though has worked most of her life.) Living Situation: With spouse/s.o. Support System: Her sister Amy is currently here, she is looking forward to have her go home and have some time. This will actually allow Willie to be able to take her to appointments, reinforced this would be helpful for him to be more engaged in her treatment. Medications/Allergies - Medications Home Medications: Ambulatory Orders Medication Instructions Recorded Confirmed Multivitamin [Multivitamins] 1 cap PO DAILY 08/16/15 07/03/20 Zolpidem [Ambien] 7.5 mg PO QPM 09/21/19 07/03/20 Ondansetron [Zuplenz] 4 mg PO Q8HR PRN 09/22/19 07/03/20 Prochlorperazine Maleate 10 mg PO Q6HR PRN 09/22/19 07/03/20 Senna [Senokot] 3 tab PO TID PRN 09/22/19 07/03/20 polyethylene glycoL 3350 [Miralax] 17 gm PO BID 09/22/19 07/03/20 Alprazolam [Xanax] 0.5 mg PO Q6HR PRN MDD 6 10/04/19 07/03/20 Venlafaxine HCl [Venlafaxine HCl 225 mg PO DAILY 11/09/19 07/03/20 ER] Oxycodone HCl 10 mg PO Q4HR PRN 01/18/20 07/03/20 Morphine Sulfate [Ms Contin] 15 mg PO TID 03/21/20 07/03/20 Dexamethasone [Decadron] 2 mg PO .BID X 4 [id number] 04/11/20 07/03/20 Omeprazole Magnesium 20 mg PO DAILY 04/29/20 07/03/20 Magnesium 250 mg PO DAILY 07/03/20 07/03/20 - Allergies Allergies/Adverse Reactions: Allergies Allergy/AdvReac Type Severity Reaction Status Date / Time No Known Drug Allergies Allergy Verified 03/10/15 05:43 Review of Systems - Constitutional Constitutional: reports: Fatigue (improved), Weakness, Weight gain (reports gained 10 pounds). denies: Fever, Chills - Eyes Eyes: reports: Vision loss - Ears, Nose & Throat Ears, Nose & Throat: denies: Mouth lesions, Bleeding gums - Cardiovascular Cardiovascular: reports: Chest pain (c/ some chest heaviness with anxiety attacks), Decr. exercise tolerance. denies: Palpitations, Edema - Respiratory Respiratory: reports: SOB with exertion. denies: Cough, Wheezing, SOB at rest - Gastrointestinal Gastrointestinal: reports: Abdominal pain (left upper quadrant;), Bloating, Early satiety, Good appetite. denies: Constipation (following bowel program with results), Reflux/heartburn (improved with use of omeprazole) - Genitourinary Genitourinary: reports: Frequency - Musculoskeletal Musculoskeletal: reports: Stiffness, Muscle weakness - Integumentary Integumentary: reports: Dryness, Hair changes (dyed her hair BRIGHT BLUE) - Neurological Neurological: reports: General weakness, Numbness (hands/feet), Memory problems (feels this continues to be frustrating and persistent; interfering with patient able to adhere to instructions) - Psychiatric Psychiatric: reports: Anxiety (significant; does get perservative and causes more distress;exacerbated with the sterioids). denies: Depression - All Other Systems All Other Systems: reports: Reviewed and negative Physical Exam - Vital Signs Temperature: 98.1 C Pulse Rate: 96 Respiratory Rate: 18 O2 Saturation: 98 (ra @ rest) Blood Pressure: 117/86 - Physical Exam General Appearance: positive: Alert, Anxious Eyes Bilateral: positive: Normal inspection, No scleral icterus ENT: negative: Dry mucous membranes Neck: positive: Trachea midline Cardiovascular: positive: Tachycardia (with any activity) Respiratory: positive: No respiratory distress, Breath sounds nml, Diminished in bases. negative: Wheezes, Rales, Rhonchi Abdomen: positive: Soft, Nml bowel sounds, Tenderness (left upper quadrant; point tenderness at rib border left side). negative: Mass Skin: positive: Pallor, Dryness Extremities: positive: No pedal edema (on exam) Neurologic/Psychiatric: positive: Oriented x3, Weakness, Depressed mood/affect Palliative Care - POLST Patient has POLST: Yes POLST Status: DNR, Selective Treatment Pain: Pain improved, Location (LUQ), Comment (see hPI) Tiredness/Fatigue: Moderate (4-6) Drowsiness/Sedation: Moderate (4-6) Nausea: None Anorexia: Mild (1-3) (taste changes) Dyspnea: Moderate (4-6) Depression: Moderate (4-6) Anxiety: Severe (7-10) Feelings of wellbeing/Perceived Quality of Life: Good, Acceptable, No change Sleep: Sleeps well Constipation: Yes, Opoid induced, Intermittent constipation Performance Status: Patient is ambulatory, she is more fatigued with her chemo, is hoping will continue to improve over the week. - Palliative Care Discussion: Patient continues to have anxiety regarding continuing treatment, weighing benefits and burdens, feels like she would be letting down her family if she said enough is enough. She reports it is currently tolerable, particularly with his last round, she is hoping it is helping, on the other hand she is always so anxious about it getting worse. Tried to refocus her on continuing to take a day at a time, do not get ahead of her cell, and with each treatment cycle can be benefits and burdens of moving forward. Her sister will be returning home, encouraged her to bring Willie with her so that she had someone else besides her immediate family able to participate in the appointments, and provide her support. Patient does feel like she has completed all her end-of-life planning tasks, she just feels like her family is not acknowledging there will be an to all of this. 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 She continues with moderate to high symptom burden, with pain, fatigue, mild functional and cognitive decline. She continues to struggle with weighing benefits and burdens of treatment or letting go. Palliative care continue provide support for pain and symptom management, assist with medication adherence, as well as anticipatory guidance Recommendations/Counseling Done: 1. Pain of neoplastic origin. Patient is taking her MS Contin 15 mg 3 times daily, with scheduled oxycodone at 1400. She feels that scheduled doses helps "mellow her pain", has not needed very often other extra breakthrough pain medication. Does feel like we have her pain well controlled at this point in time, recommended she make no further changes without checking with me first. 2. GERD. Patient is taking omeprazole daily, with improvement. 3. Constipation. She continues to struggle with her bowel program, now balancing side effects of chemotherapy. At this point in time she reports it is managed. 4. Weight gain. Patient reports she has had "sugar addiction" since she stopped alcohol, though it has exacerbated with her anxiety over the last few weeks. Counseling provided regarding need to decrease sugar content of her diet, recommended getting diet pops, limiting her consumption and volume/portion control, and adding better protein to her diet. Patient is struggling because of taste changes, suggestions provided. 5. Anxiety. Patient continues to have fluctuating anxiety, particular around her chemotherapy. She has been managing on venlafaxine 225 which is maximized for control of her hot flashes, she is using alprazolam intermittent, she has not had any recent panic attacks. I suspect it was somewhat exacerbated with the initiation of the steroids, will continue to provide her support. 6. Metastatic high-grade serous fallopian tube cancer. Patient is initiating AVastin into her treatment cycle, she had forgotten the name of the drug, had called to the clinic and gotten this. Reviewed side effects, patient does understand she is supposed to be checking blood pressure. Counseling provided regarding use of her blood pressure machine, having difficulty, unfortunately adding to her anxiety. Reassured most likely would be a gradual elevation, she was worried about heart attack or stroke. Instructed to record a few times a week. 7. Advanced care planning. Patient feels like she is completed most of her end-of-life planning tasks, though continues to perseverate and worry about what she should do as far as treatment. Reviewed again can weigh benefits and burdens with each treatment cycle, that at some point it will not be her decision, the oncologist will tell her when it is no longer of benefit and more of a burden, that will not be her choice. This did provide her some reassurance and support 50 minutes with greater than 50% of this done in counseling regarding pain and symptom management, coordination with oncology team, and anticipatory guidance. Reordered her morphine and oxycodone
== END 2020-07-03 11:16 | disposition home or self-care (01) ==
LOC: PC 11:15
PROVIDERS: ATTEND Nurse Practitioner Adult Health
DX: Z51.5 Encounter for palliative care (principal); G89.3 Neoplasm related pain (acute) (chronic); K21.9 Gastro-esophageal reflux disease without esophagitis; K59.03 Drug induced constipation; T40.2X5A Adverse effect of other opioids, initial encounter; R63.5 Abnormal weight gain; F41.9 Anxiety disorder, unspecified; C57.00 Malignant neoplasm of unspecified fallopian tube; C79.9 Secondary malignant neoplasm of unspecified site; Z79.899 Other long term (current) drug therapy; Z87.891 Personal history of nicotine dependence; F10.11 Alcohol abuse, in remission; Z66 Do not resuscitate
CPT/HCPCS: 99349

== ENCOUNTER 2020-07-30 10:30 | Outpatient (CLI) | payer MEDICAID ==
--- NOTE | 2020-07-30 17:07 | CONSULTATION NOTE ---
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 She continues to struggle with persistent fatigue, but is doing better with management of her nausea. She does get mucositis and taste changes, but feels like overall she is doing fairly well. She reports her [id number] went up a little, but she continues to feel clinically better. She was able to drop her oxycodone in the middle of the day, is using MS Contin 15 mg 3 times daily, is willing to negotiate decreasing to twice daily. Patient continues to complain of severe memory deficits, difficulty tracking, she has been using Mediset's and doing better with her medication adherence. She does have some shortness of breath with effort, as well as her persistent anxiety, though this has been fairly well controlled at this point. She has had her bowels controlled, she continues to be somewhat addicted to sugar, and continues to struggle with her goals, but is somewhat encouraged as she continues to do well. Past Medical History: Crohn's disease, rhinitis, anxiety disorder, history of shingles, cataract surgery, rheumatoid arthritis, depression, history of tobacco/alcohol abuse Social History - Living Situation Living arrangement: At home (Patient lives with his significant other Willie, they have been together for 15 years. Her sister comes and goes, but provides transportation and support for medical appointments. She has 1 son, she is retired, though has worked most of her life.) Living Situation: With spouse/s.o. Medications/Allergies - Medications Home Medications: Ambulatory Orders Medication Instructions Recorded Confirmed Multivitamin [Multivitamins] 1 cap PO DAILY 08/16/15 07/03/20 Zolpidem [Ambien] 7.5 mg PO QPM 09/21/19 07/03/20 Ondansetron [Zuplenz] 4 mg PO Q8HR PRN 09/22/19 07/03/20 Prochlorperazine Maleate 10 mg PO Q6HR PRN 09/22/19 07/03/20 Senna [Senokot] 3 tab PO TID PRN 09/22/19 07/03/20 polyethylene glycoL 3350 [Miralax] 17 gm PO BID 09/22/19 07/03/20 Alprazolam [Xanax] 0.5 mg PO Q6HR PRN MDD 6 10/04/19 07/03/20 Venlafaxine HCl [Venlafaxine HCl 225 mg PO DAILY 11/09/19 07/03/20 ER] Oxycodone HCl 10 mg PO Q4HR PRN 01/18/20 07/03/20 Morphine Sulfate [Ms Contin] 15 mg PO TID 03/21/20 07/03/20 Dexamethasone [Decadron] 2 mg PO .BID X 4 DAYSWITHTX 04/11/20 07/03/20 Omeprazole Magnesium 20 mg PO DAILY 04/29/20 07/03/20 Magnesium 250 mg PO DAILY 07/03/20 07/03/20 - Allergies Allergies/Adverse Reactions: Allergies Allergy/AdvReac Type Severity Reaction Status Date / Time No Known Drug Allergies Allergy Verified 03/10/15 05:43 Review of Systems - Constitutional Constitutional: reports: Fatigue (doing better today; though had "overdone" yesterday with weed wacking), Weakness, Weight gain (wt 166). denies: Fever, Chills - Eyes Eyes: reports: Vision loss - Ears, Nose & Throat Ears, Nose & Throat: reports: Hoarseness, Mouth lesions (corners of mouth improved with muperisin). denies: Sore throat, Bleeding gums - Cardiovascular Cardiovascular: reports: Exertional dyspnea, Decr. exercise tolerance. denies: Palpitations, Chest pain (c/ some chest heaviness with anxiety attacks), Edema - Respiratory Respiratory: reports: SOB with exertion. denies: Cough, Wheezing, SOB at rest - Gastrointestinal Gastrointestinal: reports: Bloating, Early satiety, Good appetite. denies: Abdominal pain (reports is NOT getting the grabbin pain she had), Constipation (following bowel program with results), Reflux/heartburn (improved with use of omeprazole) - Genitourinary Genitourinary: reports: Frequency - Musculoskeletal Musculoskeletal: reports: Stiffness, Muscle weakness - Integumentary Integumentary: reports: Dryness, Hair changes (dyed her hair BRIGHT BLUE; some hair thinning) - Neurological Neurological: reports: General weakness, Numbness (hands/feet), Memory problems (feels this continues to be frustrating and persistent; interfering with patient able to adhere to instructions) - Psychiatric Psychiatric: reports: Anxiety (significant; does get perservative and causes more distress;exacerbated with the sterioids). denies: Depression - All Other Systems All Other Systems: reports: Reviewed and negative Physical Exam - Vital Signs Temperature: 97.7 C Pulse Rate: 101 Respiratory Rate: 18 O2 Saturation: 98 (ra @ rest) Blood Pressure: 132/68 - Physical Exam General Appearance: positive: Alert, Anxious Eyes Bilateral: positive: Normal inspection, No scleral icterus ENT: negative: Oral lesions, Dry mucous membranes Neck: positive: Trachea midline Cardiovascular: positive: Tachycardia (with any activity) Respiratory: positive: No respiratory distress, Breath sounds nml, Diminished in bases. negative: Wheezes, Rales, Rhonchi Abdomen: positive: Non-tender, Soft, Nml bowel sounds. negative: Mass Skin: positive: Pallor, Dryness Extremities: positive: No pedal edema (on exam) Neurologic/Psychiatric: positive: Oriented x3, Weakness Palliative Care - POLST Patient has POLST: Yes POLST Status: DNR, Selective Treatment Pain: Pain improved, Location (LUQ;), Severity (05/12), Comment (Patient taking MS Contin 15 mg 3 times daily, occasionally forgets in the middle of the day. She has not needed to take any oxycodone for breakthrough pain. Does feel her p ain is currently controlled, and has been lessening, will consider titration downwards.) Tiredness/Fatigue: Moderate (4-6) Drowsiness/Sedation: Mild (1-3) Nausea: Mild (1-3) (taste changes) Anorexia: None Dyspnea: Mild (1-3) Depression: Mild (1-3) Anxiety: Moderate (4-6) Feelings of wellbeing/Perceived Quality of Life: Good, Acceptable, Improved Sleep: Sleeps well Constipation: Yes, Opoid induced, Managed (using miralax) Performance Status: Patient has good days and then overdoes, and then feels fatigued and wants to s pend the day in bed. She can be quite sedentary, he gets quite frustrated with her level of energy. She is able to manage her ADLs, walk her dogs, and work some in the yard. She does tire easily and has activity intolerance after a few minutes. - Palliative Care Discussion: Patient continues to struggle and have significant anxiety over her journey. She reports she had figured she "would have been done gone by now". 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 She does have all her end-of-life planning done, is glad that she is still around, but still is ambivalent regarding quality of life and treatment. Currently it is tolerable, we discussed in the context of her goals, recommended she take her trip with Willie, she does get somewhat overwhelmed and immobilized. Counseling provided in providing support for trying to stay in the moment, continue to address her questions about the journey and anxieties she has around end-of-life. 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 She is continuing treatment at this point, has completed 5 out of 6 of her carbo/Doxil and bevacizumab. She does have persistent fatigue, and fluctuating side effects related to both her chemo and disease. She continues to weigh benefits and burdens of treatment. Palliative care continue provide support for pain and symptom management psychosocial support and coordination of care as well as anticipatory guidance Recommendations/Counseling Done: 1. Pain of neoplastic origin. Patient is taking her MS Contin 15 mg 3 times a day, was able to drop the oxycodone. She has skipped her MS Contin occasionally during middle the day, has not noticed any difference. She is very anxious about having withdrawals given her previous experience of stopping cold turkey. We discussed continue to use her Mediset and fill it in the noon dose, but check in with herself and hold if she is doing okay. If she finds that she is skipped most of them through the week, then decrease down to twice daily. She can always use oxycodone for breakthrough pain. She is verbalized understanding and plan written out. 2. Anxiety. Patient continues have fluctuating anxiety, particular around management of her chemotherapy and side effects. She is not had any recent panic attacks, they have been exacerbated at times with the steroids, does appear to be tolerating okay with this round. Continue to provide counseling to normalize her response to her current situation. 3. Metastatic high-grade serous fallopian tube cancer. Patient is on 5 of 6 treatments, then on [address] scan. This provides her a significant mount of anxiety, does feel like though she clinically is better. She remains concerned about her prognosis, continue to provide support and encouraging her to live in the moment, she has done her end-of-life planning. 4. Advanced care planning. We did discuss patient's more short-term goals, she has said multiple times she would like to take a trip to the ocean with her significant other Willie. She does feel better on her treatments in between, encouraged her to plan while her sister was here so she could leave the dogs and have a nice weekend. She continues to weigh benefits of burdens with each treatment cycle, she has made a commitment to finish all 6. She just finds the whole "waiting" somewhat unbearable given her personality. 45 minutes with getting 50% of this done in counseling regarding pain and symptom management, adjustment illness, and anticipatory guidance.
== END 2020-07-30 10:31 | disposition home or self-care (01) ==
LOC: PC 10:30
PROVIDERS: ATTEND Nurse Practitioner Adult Health
DX: Z51.5 Encounter for palliative care (principal); G89.3 Neoplasm related pain (acute) (chronic); C57.00 Malignant neoplasm of unspecified fallopian tube; C79.9 Secondary malignant neoplasm of unspecified site; F41.9 Anxiety disorder, unspecified; Z79.899 Other long term (current) drug therapy; Z66 Do not resuscitate
CPT/HCPCS: 99349

== ENCOUNTER 2020-08-28 09:45 | Outpatient (CLI) | payer MEDICAID ==
--- NOTE | 2020-08-28 15:27 | CONSULTATION NOTE ---
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 She has done better this last couple times, but continues to experience mucositis, worsening fatigue, she reports her anemia is worsening, and experienced increased pain this last couple weeks. She had trialed decreasing her MS Contin 15 mg to twice daily, unfortunately this did n ot hold her, so she is back to 3 times daily. Her pain is still located in her left area below her ribs. She has not had recurrence on her right. She dislikes oxycodone, so has not been using it for breakthrough pain. Patient continues to complain of severe memory deficits, difficulty tracking, she is using Mediset's which I did help her fill today, is doing better with her medication adherence. She does have shortness of breath with activity, she has had an exacerbation of her anxiety, reports she has almost like "panic attacks" mid afternoon, cannot really attribute them to anything, has needed to add another alprazolam. She reports her bowels are controlled, she has had declining functional status, is less able to tolerate activity. She continues to struggle with her goals, and is quite anxious to "know where she is at." She is getting her CT scan on 09/05, unfortunately does not have her appointment to review this until 09/26 they are working to move her appointment up if possible. Past Medical History: Crohn's disease, rhinitis, anxiety disorder, history of shingles, cataract surgery, rheumatoid arthritis, depression, history of tobacco/alcohol abuse Social History - Living Situation Living arrangement: At home (Patient lives with his significant other Willie, they have been together for 15 years. Her sister comes and goes, but provides transportation and support for medical appointments. She has 1 son, she is retired, though has worked most of her life.) Living Situation: With spouse/s.o. Medications/Allergies - Medications Home Medications: Ambulatory Orders Medication Instructions Recorded Confirmed Multivitamin [Multivitamins] 1 cap PO DAILY 08/16/15 08/28/20 Zolpidem [Ambien] 7.5 mg PO QPM 09/21/19 08/28/20 Ondansetron [Zuplenz] 4 mg PO Q8HR PRN 09/22/19 08/28/20 Prochlorperazine Maleate 10 mg PO Q6HR PRN 09/22/19 08/28/20 Senna [Senokot] 3 tab PO TID PRN 09/22/19 08/28/20 polyethylene glycoL 3350 [Miralax] 17 gm PO BID 09/22/19 08/28/20 Alprazolam [Xanax] 0.5 mg PO Q6HR PRN MDD 6 10/04/19 08/28/20 Venlafaxine HCl [Venlafaxine HCl 225 mg PO DAILY 11/09/19 08/28/20 ER] Oxycodone HCl 10 mg PO Q4HR PRN 01/18/20 08/28/20 Morphine Sulfate [Ms Contin] 15 mg PO TID 03/21/20 08/28/20 Dexamethasone [Decadron] 2 mg PO .BID X 4 DAYSWITHTX 04/11/20 08/28/20 Omeprazole Magnesium 20 mg PO DAILY 04/29/20 08/28/20 Magnesium 250 mg PO DAILY 07/03/20 08/28/20 - Allergies Allergies/Adverse Reactions: Allergies Allergy/AdvReac Type Severity Reaction Status Date / Time No Known Drug Allergies Allergy Verified 03/10/15 05:43 Review of Systems - Constitutional Constitutional: reports: Fatigue (worsening), Weakness. denies: Fever, Chills - Eyes Eyes: reports: Vision loss - Ears, Nose & Throat Ears, Nose & Throat: reports: Hoarseness, Mouth lesions (recurrent with mouth sores roof of mouth; no blisters visualized). denies: Sore throat, Bleeding gums - Cardiovascular Cardiovascular: reports: Lightheadedness, Exertional dyspnea, Decr. exercise tolerance. denies: Palpitations, Chest pain (c/ some chest heaviness with anxiety attacks), Edema - Respiratory Respiratory: reports: SOB with exertion. denies: Cough, Wheezing, SOB at rest - Gastrointestinal Gastrointestinal: reports: Bloating, Early satiety, Good appetite. denies: Abdominal pain (reports is NOT getting the grabbin pain she had), Constipation (following bowel program with results), Reflux/heartburn (improved with use of omeprazole) - Genitourinary Genitourinary: reports: Frequency - Musculoskeletal Musculoskeletal: reports: Stiffness, Muscle weakness, Other (poor activity tolerance) - Integumentary Integumentary: reports: Dryness, Hair changes (dyed her hair BRIGHT BLUE; some hair thinning) - Neurological Neurological: reports: General weakness, Numbness (hands/feet), Memory problems (feels this continues to be frustrating and persistent; interfering with patient able to adhere to instructions) - Psychiatric Psychiatric: reports: Anxiety (significant; does get perservative and causes more distress;exacerbated with the sterioids; worsened over last couple of weeks). denies: Depression - Hematologic/Lymphatic Hematologic/Lymph: reports: Anemia. denies: Recurrent infections - All Other Systems All Other Systems: reports: Reviewed and negative Physical Exam - Vital Signs Temperature: 97.7 C Pulse Rate: 91 Respiratory Rate: 18 O2 Saturation: 99 Blood Pressure: 132/88 - Physical Exam General Appearance: positive: Alert, Anxious Eyes Bilateral: positive: Normal inspection, No scleral icterus ENT: positive: Oral lesions. negative: Dry mucous membranes Neck: positive: Trachea midline Cardiovascular: positive: Regular rate & rhythm, Tachycardia (with any activity) Respiratory: positive: No respiratory distress, Breath sounds nml, Diminished in bases. negative: Wheezes, Rales, Rhonchi Abdomen: positive: Soft, Nml bowel sounds, Tenderness (left upper quadrant). negative: Mass Skin: positive: Pallor, Dryness Extremities: positive: No pedal edema (on exam), Other (worried about varicose veins: no pain/redness/swelling; no abnormalities noted; has worked on her feet for most of her work life) Neurologic/Psychiatric: positive: Oriented x3, Weakness Palliative Care - POLST Patient has POLST: Yes POLST Status: DNR, Selective Treatment Pain: Pain worsening, Location (LUQ see HPI), Comment (Patient on MS Contin 3 times daily 15 mg, pain is improved with regular 3 times daily dosing.) Tiredness/Fatigue: Severe (7-10) Drowsiness/Sedation: Moderate (4-6) Nausea: Mild (1-3) Anorexia: Mild (1-3) Dyspnea: Moderate (4-6) Depression: Moderate (4-6) Anxiety: Severe (7-10) Feelings of wellbeing/Perceived Quality of Life: Fair, Acceptable, No change Sleep: Variable sleep pattern (with steroids) Constipation: Yes, Opoid induced, Managed Performance Status: Patient is concerned that she has less activity tolerance, is able to ambulate but only for short distances, before she becomes breathless nor feels more uncomfortable. She is able to manage her ADLs, but is more sedentary. I would put her at a PPS of 60% - Palliative Care Discussion: Patient's anxiety is ramping up again, she wants to "know where she is at", has a pending CT scan 09/05. She continues to struggle with the uncertainty of her diagnosis, we have had multiple discussions about "staying in the moment", she had gotten herself a tattoo to remind her of this. She does have all her end-of-life planning done, she wants to do DWD when it is time, she just needs her "6 months" to be able to move forward on this. She still perceives her quality of life as good, though it is declining as she has become more weak, more shortness of breath, and limiting her activity. She has had more anxiety exacerbations, and will add in alprazolam midday. She did take a trip, she said it was somewhat depressing [place] and there was not a whole lot to do. But she was glad that they had gotten away. I encouraged her to plan another get away, she is somewhat distressed also her sister is in the hospital possibly awaiting liver transplant. 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 She continues with treatment, of carbo/Doxil and bevacizumab. She continues with worsening fatigue, she is managing the nausea and steroids a little bit better, she continues to weigh benefits and burdens of treatment and is anxious to find where she currently sits with her scans. Palliative care continue provide support for pain and symptom management, psychosocial support and anticipatory guidance. Recommendations/Counseling Done: 1. Pain of neoplastic origin. Patient increased back up her MS Contin 15 mg 3 times daily, as she was having more pain at twice daily dosing. She feels like she is comfortable at this point, has not needed to use any oxycodone for breakthrough. Assisted patient with filling her Mediset secondary to adherence issues. 2. Anxiety. Patient continues have fluctuating anxiety, particularly with pending scan. She is still having more panic attacks, these often happen midafternoon, we will go ahead and schedule a alprazolam on midday as these are fairly predictable. Her anxiety does get exacerbated by the steroids, she is currently finished with those. Continue to provide counseling to normalize her response to her current situation, provide redirection, and CBT. 3. Metastatic high-grade serous fallopian tube cancer. Patient is finishing up 6 of 6 treatments, and is expecting to have a CT scan. She still remains concerned about her prognosis, continue to provide support and encouraging her to stay in the moment, she has completed her end-of-life planning tasks. 4. Advanced care planning. Trying to be direct patient to short-term goals, she did take her trip to the ocean with her as though Willie. She continues to weigh benefits of burdens of each treatment cycle, she was committed to finish all 6. 5. Mucositis. Patient reports mucositis and tenderness, no visible lesions, is doing 1 teaspoon salt/1 teaspoon baking soda rinses 3-4 times a day. She does have Magic mouthwash, but this has not been much of help. Reassured last time it cleared up as well, it takes about a week. Verbalizes understanding. 6. Fatigue. Patient reports her blood counts were such that they were on the fence about treatment, we discussed what anemia means. That her gas tank is only partly full, counseling provided to need to PAC E her activities. She gets very distressed that she feels like she is "lazy". Discussed multiple ways that she can support herself and still engage in activities that are meaningful for her. 45 minutes with greater than 50% of this done in counseling regarding pain and symptom management, medication adherence, anticipatory guidance, and coordination of care
== END 2020-08-28 09:46 | disposition home or self-care (01) ==
LOC: PC 09:45
PROVIDERS: ATTEND Nurse Practitioner Adult Health
DX: Z51.5 Encounter for palliative care (principal); G89.3 Neoplasm related pain (acute) (chronic); C57.00 Malignant neoplasm of unspecified fallopian tube; C79.9 Secondary malignant neoplasm of unspecified site; F41.0 Panic disorder [episodic paroxysmal anxiety]; F41.9 Anxiety disorder, unspecified; K12.30 Oral mucositis (ulcerative), unspecified; R53.83 Other fatigue; Z66 Do not resuscitate
CPT/HCPCS: 99349

== ENCOUNTER 2020-10-08 12:30 | Outpatient (CLI) | payer MEDICAID ==
--- NOTE | 2020-10-08 16:58 | CONSULTATION NOTE ---
Palliative Care Follow Up - Referral Referring Provider: Dr. 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 She is on maintenance Avastic every 3 weeks, but unfortunately has experienced worsening hypertension. She was recently started on lisinopril 5 mg, but over this last couple weeks has had increased dizziness and review of her blood pressures, they have been running less than 100, down from the 130s. Patient's main complaint is been persistent fatigue, she does spend most of her time in bed, she reports she has poor activity tolerance has increased shortness of breath whenever she tries to do anything. Her sister has been gone for over a month, unfortunately though there is tension between the 2 of them her sister does help keep her moving. She reports her anxiety has improved, denies persistent depressive symptoms, but just cannot get going. She continues to be anxious about her impending decline, she did have a CT scan with somewhat mixed response, with improvement of her left pain in her thoracic area which flu ctuates up and down, her big concern is that from 527 her CA-125 went from 3 86- 4 21. Her other labs all look within normal limits with her magnesium at 1.7 she has restarted her magnesium pills and her hemoglobin at 12.8. Her last chemo was 08/22. Past Medical History: Crohn's disease, rhinitis, anxiety disorder, history of shingles, cataract surgery, rheumatoid arthritis, depression, history of tobacco/alcohol abuse Social History - Living Situation Living arrangement: At home (Patient lives with his significant other Willie, they have been together for 15 years. Her sister comes and goes, but provides transportation and support for medical appointments. She has 1 son, she is retired, though has worked most of her life.) Living Situation: With spouse/s.o. Medications/Allergies - Medications Home Medications: Ambulatory Orders Medication Instructions Recorded Confirmed Multivitamin [Multivitamins] 1 cap PO DAILY 08/16/15 10/08/20 Zolpidem [Ambien] 7.5 mg PO QPM 09/21/19 10/08/20 Ondansetron [Zuplenz] 4 mg PO Q8HR PRN 09/22/19 10/08/20 Prochlorperazine Maleate 10 mg PO Q6HR PRN 09/22/19 10/08/20 Senna [Senokot] 1 tab PO BID PRN 09/22/19 10/08/20 polyethylene glycoL 3350 [Miralax] 17 gm PO BID 09/22/19 10/08/20 Alprazolam [Xanax] 0.5 mg PO Q6HR PRN MDD 6 10/04/19 10/08/20 Venlafaxine HCl [Venlafaxine HCl 225 mg PO DAILY 11/09/19 10/08/20 ER] Oxycodone HCl 10 mg PO Q4HR PRN 01/18/20 10/08/20 Morphine Sulfate [Ms Contin] 15 mg PO QDBREAKFAST 03/21/20 10/08/20 Omeprazole Magnesium 20 mg PO DAILY 04/29/20 10/08/20 Magnesium 250 mg PO DAILY 07/03/20 10/08/20 Lisinopril [Zestril] 2.5 mg PO DAILY MDD 5 mg if >130/70 10/08/20 10/08/20 - Allergies Allergies/Adverse Reactions: Allergies Allergy/AdvReac Type Severity Reaction Status Date / Time No Known Drug Allergies Allergy Verified 03/10/15 05:43 Review of Systems - Constitutional Constitutional: reports: Fatigue (worsening and persistent), Weakness, Weight loss (167). denies: Fever, Chills - Eyes Eyes: reports: Vision loss - Ears, Nose & Throat Ears, Nose & Throat: denies: Sore throat, Bleeding gums - Cardiovascular Cardiovascular: reports: Lightheadedness, Exertional dyspnea, Decr. exercise tolerance. denies: Palpitations, Chest pain (c/ some chest heaviness with anxiety attacks), Edema - Respiratory Respiratory: reports: SOB with exertion. denies: Cough, Wheezing, SOB at rest - Gastrointestinal Gastrointestinal: reports: Bloating, Early satiety, Good appetite. denies: A bdominal pain (reports is NOT getting the grabbin pain she had), Constipation (following bowel program with results), Reflux/heartburn (improved with use of omeprazole) - Genitourinary Genitourinary: reports: Frequency - Musculoskeletal Musculoskeletal: reports: Stiffness, Muscle weakness, Other (poor activity tolerance) - Integumentary Integumentary: reports: Dryness, Hair changes ( some hair thinning) - Neurological Neurological: reports: General weakness, Numbness (hands/feet), Memory problems (feels this continues to be frustrating and persistent; interfering with patient able to adhere to instructions) - Psychiatric Psychiatric: reports: Anxiety (significant; does get perservative and causes more distress;). denies: Depression - Hematologic/Lymphatic Hematologic/Lymph: denies: Recurrent infections - All Other Systems All Other Systems: reports: Reviewed and negative Physical Exam - Vital Signs Temperature: 97.3 C Pulse Rate: 87 Respiratory Rate: 18 O2 Saturation: 99 (ra @ rest) Blood Pressure: 106/72 - Physical Exam General Appearance: positive: Alert, Anxious Eyes Bilateral: positive: Normal inspection, No scleral icterus ENT: negative: Dry mucous membranes Neck: positive: Trachea midline Cardiovascular: positive: Regular rate & rhythm Respiratory: positive: Breath sounds nml, Diminished in bases. negative: No respiratory distress (with activity feels worse), Wheezes, Rales, Rhonchi Abdomen: positive: Soft, Nml bowel sounds, Tenderness (left upper quadrant). negative: Mass Skin: positive: Pallor, Dryness Extremities: positive: No pedal edema (on exam) Neurologic/Psychiatric: positive: Oriented x3, Weakness Palliative Care - POLST Patient has POLST: Yes POLST Status: DNR, Selective Treatment Pain: Pain improved, Location (left upper thoracic back area; fluctuates in nature; no need for BTP meds) Tiredness/Fatigue: Severe (7-10) Drowsiness/Sedation: Moderate (4-6) Nausea: Mild (1-3) Anorexia: None Dyspnea: Severe (7-10) (with activity) Depression: Moderate (4-6) Anxiety: Mild (1-3) Feelings of wellbeing/Perceived Quality of Life: Fair, Acceptable, Worsening Sleep: Sleeps well Constipation: Yes, Opoid induced, Managed Performance Status: Patient reports her fatigue is that she is she spends most the time in bed, she is sleeping at night, she is somewhat perplexed why she still has persistent fatigue with finishing of chemo. Her hemoglobin is fine. She is have less activity tolerance. She is able to manage her own ADLs. - Palliative Care Discussion: Patient is somewhat anxious with her increased CA-125 of 47 points, wondering what this means and what is her next step in her treatment plan. She has actually demonstrated some depressive symptoms in the context that she is not engaging in any activities or things that would keep her up and going. She does not perceive she is depressed or that she has anything to be depressed about, but will reviewed behaviors, thinks it might help her to feel more engaged in life, she admits there may be some things that might be of help. We did discuss certainly when wants to listen to your body and rest, but suspect she is napping more than she needs to. 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 She is currently on maintenance of bevacizumab every 3 weeks. She is having some symptoms of hypertension, now hypotension with initiation of lisinopril. She continues to manage her anxiety but does present with some depressive persistent symptoms today. Palliative care continue provide support for pain and symptom management, psychosocial support and anticipatory guidance Recommendations/Counseling Done: 1. Pain of neoplastic origin. Patient's pain has been fluctuating, she had decreased her MS Contin down to 15 mg twice daily, has not had any breakthrough pain, is wondering if she can decrease further. She feels like she is comfortable at this point, we will go ahead and decrease to just daily dosing in the a.m., but if recurs patient is to restart twice daily. Patient should be okay without withdrawal symptoms, as she has stopped cold turkey in the past. She will contact me after 1 week if she wants to time try Lobo lower if she continues with minimal pain. 2. Anxiety. Patient continues have fluctuating anxiety, she reports the panic attacks so have resolved, she is doing her Xanax a.m. and p.m., she is done with her steroids which often exacerbated this. Continue to provide counseling to normalize her response to her current situation and provide reframing and CBT. 3. Generalized weakness. This is multifactorial, she very much would like to engage in some kind of activity program. We discussed given her propensity to overdo, a progressive ambulation program up to 10 to 15 minutes at that point then she can consider starting her [employer] routines again, which are very low-allen and give her much maxim. Also instructed her that she can nap in her bed, but she is not to lay in bed all day watching TV, she needs to come out to her living room and can watch TV with her dogs. 4. Depression. Reviewed patient's behaviors and concern for persistent depressive symptoms. Though she is denying feeling depressed, we did discuss some of her behaviors are reflective of this. Counseling provided regarding setting some short-term goals on ways to engage back into some activities of bring her mxaim, her art, doing projects with kids, possibly volunteering. We discussed most likely would be best if she got her endurance built up at some point. 5. Fatigue. Her hemoglobin has returned to 12.8, and review of her labs I do not see anything else that might be impacting this. We will titrate back on her morphine to see if that will help, as well as consider backing down on her Xanax if this would be of help for her as well. She does need to pace her activities, and find ways to engage in her environment. Though the tension is down with her sister gone, her sister does keep her up and going. 6. Advanced care planning. Patient continues to understand the seriousness of her illness, she is quite anxious about the what next, they are looking at doing her maintenance [facility] to decrease her travel time. She continues to struggle with being in the place where she does know this will lead to an end-of-life event but also does not do well in the waiting time. Counseling provided to normalize this process, and ways to help with coping. 7. Hypertension. Patient does present with hypotension in response to initiation of lisinopril, will decrease her lisinopril to 2.5 mg daily, she has been instructed to increase it to 5 mg if greater than 130/80 in a.m. Instructed to take varying times of blood pressures through the day at least twice a day, to be able to track. Patient verbalized understanding all instructions were written out.
== END 2020-10-08 12:31 | disposition home or self-care (01) ==
LOC: PC 12:30
PROVIDERS: ATTEND Nurse Practitioner Adult Health
DX: Z51.5 Encounter for palliative care (principal); G89.3 Neoplasm related pain (acute) (chronic); C57.00 Malignant neoplasm of unspecified fallopian tube; C79.9 Secondary malignant neoplasm of unspecified site; I10 Essential (primary) hypertension; I95.2 Hypotension due to drugs; T46.4X5A Adverse effect of angiotensin-converting-enzyme inhibitors, initial encounter; Z87.891 Personal history of nicotine dependence; F41.9 Anxiety disorder, unspecified; F32.9 Major depressive disorder, single episode, unspecified; R53.1 Weakness; R53.83 Other fatigue; Z66 Do not resuscitate
CPT/HCPCS: 99350

== ENCOUNTER 2020-11-22 11:33 | Outpatient (CLI) | payer MEDICAID ==
--- NOTE | 2020-11-22 12:06 | CONSULTATION NOTE ---
Palliative Care Follow Up - Referral Referring Provider: Dr. 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 She has had increasing pain, left upper quadrant abdominal radiating under ribs, now recurred on right upper quadrant. Currently controlled on time-released morphine 15 mg 3 times daily, her most significant symptom has been her persistent fatigue, though she feels actually much better off of her treatments. She had been offered treatment on a clinical trial, unfortunately it did include chemotherapy, and she does not want to take anything that is going to impact her quality of life. Her goal currently is to feel better, live life to the fullest, and recognizing that her time is limited. Despite patient's high levels of anxiety, she seems actually quite calm and at peace with this decision. Past Medical History: Crohn's disease rhinitis, anxiety disorder, history of shingles, cataract surgery, rheumatoid arthritis, depression, history of tobacco/alcohol abuse Social History - Living Situation Living arrangement: At home (Patient lives with his significant other Willie, they have been together for 15 years. Her sister comes and goes, but provides transportation and support for medical appointments. She has 1 son, she is retired, though has worked most of her life. Sister Amy very stressful for patient, is coming Sun) Living Situation: With spouse/s.o. Medications/Allergies - Medications Home Medications: Ambulatory Orders Medication Instructions Recorded Confirmed Multivitamin [Multivitamins] 1 cap PO DAILY 08/16/15 11/22/20 Zolpidem [Ambien] 7.5 mg PO QPM 09/21/19 11/22/20 Ondansetron [Zuplenz] 4 mg PO Q8HR PRN 09/22/19 11/22/20 Prochlorperazine Maleate 10 mg PO Q6HR PRN 09/22/19 11/22/20 Senna [Senokot] 1 tab PO BID PRN 09/22/19 11/22/20 polyethylene glycoL 3350 [Miralax] 17 gm PO BID 09/22/19 11/22/20 Alprazolam [Xanax] 0.5 mg PO Q6HR PRN MDD 6 10/04/19 11/22/20 Venlafaxine HCl [Venlafaxine HCl 225 mg PO DAILY 11/09/19 11/22/20 ER] Oxycodone HCl 10 mg PO Q4HR PRN 01/18/20 11/22/20 Morphine Sulfate [Ms Contin] 15 mg PO TID 03/21/20 11/22/20 Omeprazole Magnesium 20 mg PO DAILY 04/29/20 11/22/20 Magnesium 250 mg PO DAILY 07/03/20 11/22/20 Lisinopril [Zestril] 2.5 mg PO DAILY MDD 5 mg if >130/70 10/08/20 11/22/20 - Allergies Allergies/Adverse Reactions: Allergies Allergy/AdvReac Type Severity Reaction Status Date / Time No Known Drug Allergies Allergy Verified 03/10/15 05:43 Review of Systems - Constitutional Constitutional: reports: Fatigue (remains persistent but improved off chemo), Weakness, Weight stable (165). denies: Fever, Chills - Eyes Eyes: reports: Vision loss - Ears, Nose & Throat Ears, Nose & Throat: denies: Sore throat, Bleeding gums - Cardiovascular Cardiovascular: reports: Lightheadedness (occasional; not problematic), Exertional dyspnea, Decr. exercise tolerance. denies: Palpitations, Chest pain (c/ some chest heaviness with anxiety attacks), Edema - Respiratory Respiratory: reports: SOB with exertion. denies: Cough, Wheezing, SOB at rest - Gastrointestinal Gastrointestinal: reports: Abdominal pain (increased left sided pain; now right recurrent), Early satiety, Good appetite. denies: Constipation (following bowel program with results), Reflux/heartburn (improved with use of omeprazole) - Genitourinary Genitourinary: reports: Frequency - Musculoskeletal Musculoskeletal: reports: Stiffness, Muscle weakness, Other (poor activity tolerance) - Integumentary Integumentary: reports: Dryness, Hair changes ( some hair thinning) - Neurological Neurological: reports: General weakness, Numbness (hands/feet), Memory problems (feels this continues to be frustrating and persistent; interfering with patient able to adhere to instructions) - Psychiatric Psychiatric: reports: Anxiety (feeling less anxious now has made decision). denies: Depression - Hematologic/Lymphatic Hematologic/Lymph: denies: Recurrent infections - All Other Systems All Other Systems: reports: Reviewed and negative Physical Exam - Vital Signs Temperature: 97.5 C Pulse Rate: 98 Respiratory Rate: 16 O2 Saturation: 98 (ra@ rest) Blood Pressure: 102/64 - Physical Exam General Appearance: positive: No acute distress, Alert Eyes Bilateral: positive: Normal inspection, No scleral icterus ENT: negative: Dry mucous membranes Neck: positive: Trachea midline Cardiovascular: positive: Regular rate & rhythm Respiratory: positive: Breath sounds nml, Diminished in bases. negative: No respiratory distress (with activity feels worse), Wheezes, Rales, Rhonchi Abdomen: positive: Soft, Nml bowel sounds, Tenderness (left upper quadrant; new right upper quadrant both "under ribs"). negative: Mass Skin: positive: Pallor, Dryness Extremities: positive: No pedal edema (on exam) Neurologic/Psychiatric: positive: Oriented x3, Mood/affect nml, Weakness Palliative Care - POLST Patient has POLST: Yes POLST Status: DNR, Selective Treatment Pain: Pain worsening, Location (see hPI) Tiredness/Fatigue: Moderate (4-6) Drowsiness/Sedation: Moderate (4-6) Nausea: None Anorexia: None Dyspnea: Mild (1-3) Depression: Mild (1-3) Anxiety: Moderate (4-6) Feelings of wellbeing/Perceived Quality of Life: Good, Acceptable, Improved Sleep: Sleeps well Constipation: Yes, Opoid induced, Managed Performance Status: Patient does complain of persistent fatigue, does like to spend time in bed but is up as she has to walk the dogs, able to manage her ADLs, she actually is feeling little bit stronger off of chemotherapy. Is looking forward to being actually a little more active. - Palliative Care Discussion: Patient very reflective on her process as far as her current decision to stop further pursuing treatment. She felt she was just reflexive in that if she was offered more time she is willing to do it, but after she found out it involves chemo, she really does not want impact with time she has left with the side effects. She would rather feel better than have more time, she would like some increase in quality of life though we did discuss with progressive disease she may have more symptoms at some point this will transition. She is feeling better overall and at peace with the decision. Counseling provided regarding hospice, if patient at this point not pursuing treatment would be appropriate, we discussed this was not an "if" but a "when", she is still coming to terms with this. She is still interested in with dignity, will follow up with Dr. Fonseca if able to prescribe. She reports that this point in time she feels her family is supportive of her decision, previously she had actually made the decision to continue treatment because of them. She reports Willie is getting ready to retire, and is going to start taking off weekends so they will have some time together she is looking forward to this. She still has some further follow-up questions for Dr. Fonseca, I will facilitate conversation. Impression and Recommendations - Palliative Care Impression: This is a 65-year-old woman with progressive high-grade serous fallopian tube cancer with known metastatic disease. Her most recent restaging, shows further progression, as well as increased symptoms of pain. Today she is feeling somewhat better off of her current treatments, is doing fairly well with her anxiety, and feeling at peace with her decision to discontinue treatment. Palliative care continue provide support for pain and symptom management, psychosocial support, anticipatory guidance until transition to hospice. Recommendations/Counseling Done: 1. Pain of neoplastic origin. Patient's pain has been increasing, she is using extended release morphine 15 mg 3 times a day, has not needed anything for dread akthrough pain though does have oxycodone available. She feels like this is managed at this point, reassured can keep her comfortable, that she is on low doses currently. We will continue to monitor and titrate accordingly. 2. Anxiety. Patient has fluctuating anxiety, she has not had any panic attacks recently, and is actually feeling quite peaceful with her decision. Currently on venlafaxine both for anxiety/depression and hot flashes. 3. Fatigue. Patient continues to have persistent fatigue, though she is still able to manage her ADLs, counseling provided regarding pacing her activities, balancing with keeping active. She is looking forward to planning some short outings, this does energize her. She is somewhat hypotensive today, she is no longer taking Avastin, will titrate down her lisinopril. 4. Hypotension. Patient was initiated on lisinopril because of her Avastin, currently blood pressures running somewhat low. We will go ahead and decrease back down to 2.5 mg daily, and titrate off if no further Avastin in treatment schedule. 5. Advanced care planning. Patient at this point in time is looking at no further treatment support, she still has appointment yet with her oncologist, to see if will continue Avastin. Patient with multiple questions, facilitating telehealth visit with oncologist. Did confirm can help facilitate DWD prescription. Counseling provided regarding introducing hospice transition, patient does have all her end-of-life planning documents and affairs in order. Will revisit again after appointment with oncology, planned home visit in 2 weeks. In reaching out to oncology, would expect prognosis at this point weeks to months. 60 minutes with greater than 50% of this done in counseling regarding goals of care, pain and symptom management, review of medications and anticipatory guidance. Coordination of care with oncology team.
== END 2020-11-22 11:34 | disposition home or self-care (01) ==
LOC: PC 11:33
PROVIDERS: ATTEND Nurse Practitioner Adult Health
DX: Z51.5 Encounter for palliative care (principal); R10.11 Right upper quadrant pain; R10.12 Left upper quadrant pain; G89.3 Neoplasm related pain (acute) (chronic); C57.00 Malignant neoplasm of unspecified fallopian tube; C79.9 Secondary malignant neoplasm of unspecified site; F41.9 Anxiety disorder, unspecified; R53.83 Other fatigue; I95.9 Hypotension, unspecified; F10.11 Alcohol abuse, in remission; Z87.891 Personal history of nicotine dependence; Z79.891 Long term (current) use of opiate analgesic; Z66 Do not resuscitate
CPT/HCPCS: 99350

== ENCOUNTER 2020-12-05 10:00 | Outpatient (CLI) | payer MEDICAID ==
--- NOTE | 2020-12-05 15:28 | CONSULTATION NOTE ---
Palliative Care Follow Up - Referral Referring Provider: Dr. Katy Fonseca Time of Visit: Referral setting: Home Referral Reason: Pain of neoplastic origin/Ovarian CA/Goals of care - Information Sources Records reviewed: Previous records reviewed History/Review of Systems obtained from: Patient Exam limitations: Clinical condition (patient with high anxiety; STM deficits) - History of Present Illness Update Brief HPI Update: This is a rusty 65-year-old woman with progressive fallopian tube cancer, with with recent CT scan showing progression of disease. Patient had been offered both clinical trial as well as chemotherapy, she has declined his she wants to focus on quality of life, and finds chemotherapy exhausting as well as feels like she is already invested a year and a half with very little outcome. She is at peace with her decision, she is having increased pain she has original left upper quadrant pain now increased right upper quadrant pain. She has had low- grade nausea, has been using the oxycodone more regularly. She would like to stop the morphine and we discussed trialing methadone to be able to better feel less "druggy" and now no longer taking chemotherapy interactions less problematic. Start with a very low dose, patient will use oxycodone as her main medication at this point, she does find this acceptable side effects and effective.She has probably lost about 5 to 10 pounds over the last 3 weeks, reports early satiety, some bloating, and poor appetite. She does have persistent fatigue but is functional and able to manage her own ADLs. Past Medical History: Crohn's disease, rhinitis, anxiety disorder, history of shingles, cataract surgery, rheumatoid arthritis, depression, history of tobacco/alcohol abuse Social History - Living Situation Living arrangement: At home (Patient lives with his significant other Willie, they have been together for 15 years. He is now staying home on weekends, she is quite pleased with this, is hoping they will have some good time together.) Living Situation: With spouse/s.o. Support System: Patient also has a very loving supportive family, she does have a Sister Amy who comes frequently to provide support, she finds this very stressful. She is very anxious about putting limits on this, strategies provided for delivering this message. Medications/Allergies - Medications Home Medications: Ambulatory Orders Medication Instructions Recorded Confirmed Multivitamin [Multivitamins] 1 cap PO DAILY 08/16/15 12/06/20 Zolpidem [Ambien] 7.5 mg PO QPM 09/21/19 12/06/20 Ondansetron [Zuplenz] 4 mg PO Q8HR PRN 09/22/19 12/06/20 Prochlorperazine Maleate 10 mg PO Q6HR PRN 09/22/19 12/06/20 Senna [Senokot] 1 tab PO BID PRN 09/22/19 12/06/20 polyethylene glycoL 3350 [Miralax] 17 gm PO BID 09/22/19 12/06/20 Alprazolam [Xanax] 0.5 mg PO Q6HR PRN MDD 6 10/04/19 11/22/20 Venlafaxine HCl [Venlafaxine HCl 225 mg PO DAILY 11/09/19 12/06/20 ER] Oxycodone HCl 10 mg PO Q4HR PRN 01/18/20 12/06/20 Omeprazole Magnesium 20 mg PO DAILY 04/29/20 12/06/20 Magnesium 250 mg PO DAILY 07/03/20 11/22/20 Methadone [Methadone Hcl] 2.5 mg PO QPM 12/06/20 12/06/20 Naloxone HCl [Narcan] 4 mg NS ONCE PRN 12/06/20 12/06/20 - Allergies Allergies/Adverse Reactions: Allergies Allergy/AdvReac Type Severity Reaction Status Date / Time No Known Drug Allergies Allergy Verified 03/10/15 05:43 Review of Systems - Constitutional Constitutional: reports: Fatigue (remains persistent but improved off chemo), Weakness, Weight stable (160). denies: Fever, Chills - Eyes Eyes: reports: Vision loss - Ears, Nose & Throat Ears, Nose & Throat: denies: Sore throat, Bleeding gums - Cardiovascular Cardiovascular: reports: Exertional dyspnea, Decr. exercise tolerance. denies: Palpitations, Chest pain (c/ some chest heaviness with anxiety attacks), Edema - Respiratory Respiratory: reports: SOB with exertion. denies: Cough, Wheezing, SOB at rest - Gastrointestinal Gastrointestinal: reports: Abdominal pain (increased left sided pain; now right recurrent), Early satiety, Other (taste changes). denies: Constipation (following bowel program with results), Reflux/heartburn (improved with use of o meprazole) - Genitourinary Genitourinary: reports: Frequency - Musculoskeletal Musculoskeletal: reports: Stiffness, Muscle weakness, Other (poor activity tolerance) - Integumentary Integumentary: reports: Dryness, Hair changes ( some hair thinning) - Neurological Neurological: reports: General weakness, Numbness (hands/feet), Memory problems (feels this continues to be frustrating and persistent; interfering with patient able to adhere to instructions) - Psychiatric Psychiatric: reports: Anxiety (feeling less anxious now has made decision). denies: Depression - Hematologic/Lymphatic Hematologic/Lymph: denies: Recurrent infections - All Other Systems All Other Systems: reports: Reviewed and negative Physical Exam - Vital Signs Temperature: 97.7 C Pulse Rate: 55 Respiratory Rate: 18 O2 Saturation: 98 (ra @ rest) Blood Pressure: 114/64 - Physical Exam General Appearance: positive: No acute distress, Alert Eyes Bilateral: positive: Normal inspection, No scleral icterus ENT: negative: Dry mucous membranes Neck: positive: Trachea midline Cardiovascular: positive: Regular rate & rhythm Respiratory: positive: Breath sounds nml, Diminished in bases. negative: No respiratory distress (with activity feels worse), Wheezes, Rales, Rhonchi Abdomen: positive: Soft, Nml bowel sounds, Tenderness (left upper quadrant; new right upper quadrant both "under ribs"). negative: Mass Skin: positive: Pallor, Dryness Extremities: positive: No pedal edema (on exam) Neurologic/Psychiatric: positive: Oriented x3, Mood/affect nml, Weakness Palliative Care - POLST Patient has POLST: Yes POLST Status: DNR, Selective Treatment Pain: Pain worsening, Location (right upper quadrant new/worsening; left persistent=currently managed with intermittent oxycodone 10 mg;) Tiredness/Fatigue: Moderate (4-6) Drowsiness/Sedation: Moderate (4-6) Nausea: Mild (1-3) Anorexia: Moderate (4-6), Weight loss Dyspnea: Mild (1-3) Depression: Mild (1-3) Anxiety: Moderate (4-6) Feelings of wellbeing/Perceived Quality of Life: Fair, Acceptable, Worsening Sleep: Sleeps well Constipation: Yes, Opoid induced, Managed Performance Status: Patient does feel limited by her fatigue, she is able to take the dogs out in the lawn for walks, and her ADLs, she does find herself more sedentary and sleeping more. But does feel like she can be independent, she does not like nor has energy for cooking. They are trying some frozen meals. - Palliative Care Discussion: Patient though she is her usual anxious self, is very at peace at this time feeling that she is made the right choice, to focus on quality versus quantity. Her reflection is she did the treatment for her family, for a year and a half and she is still facing more chemotherapy with out most likely a good outcome. We discussed the continuum of care and transition to hospice, she finds had a very "scary word", at this point in time her symptoms are manageable, but did provide counseling anticipatory guidance around hospice with the recommendation to transition sooner rather than later. She is interested in pursuing the DWD, at this point in time she does not feel she is imminent, we did discuss though this is a time sensitive process, and would recommend allowing me to go ahead and contact the volunteers to help facilitate the process. Dr. Fonseca will be the prescriber, director of strategic initiatives most likely the supporting physician. 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 Her most recent restaging showed further progression as well as having increased symptoms of pain. She is at peace with her decision to focus on comfort only, she would like to focus on quality of life and finding a peaceful place as she processes. Palliative care continue provide support for pain and symptom management, psychosocial support and anticipatory guidance and transition to hospice when patient accepting. Recommendations/Counseling Done: 1. Pain of neoplastic origin. Patient's pain has increasing, she dislikes the morphine, prefers the oxycodone. She feels it makes her too groggy and naus eated. We will discontinue the morphine, she will continue with oxycodone 10 mg on a regular basis, I will initiate methadone at a very low dose given patient's anxiety and will start at 2.5 mg and titrate slowly. Patient does have Narcan, she would like to be clear, and have less side effects from her medications. She is no longer pursuing chemotherapy, it would be an appropriate transition. 2. Anxiety. Patient has fluctuating anxiety, is actually feeling quite at peace, has not had a recent panic attacks and currently on her venlafaxine both for anxiety/depression and hot flashes. She did use the alprazolam intermittently with good response. Her highest anxiety this point in time is her relationship with her Sister Amy, counseling and problem solving provided around this. 3. Fatigue. Patient continues have persistent fatigue, though is able to manage her ADLs and walk her dogs. She is trying to stay active. 4. Hypertension. She was initiated on lisinopril because of her Avastin, had decrease it to 2.5 mg daily, and review of her blood pressures remain quite low, will discontinue today. 5. Advanced care planning. Patient at this point time is looking at no further treatment, is appropriate for transition to hospice but is not emotionally ready. She has had conversations with her oncologist, who will be a prescriber for DWD. Counseling provided regarding hospice services, getting DWD volunteer, otherwise she has most of her end-of-life planning documents and affairs in order again. Anticipatory guidance provided, will see her on a regular basis and keep close contact as we transition her to methadone. 45 minutes with greater than 50% of this done in counseling regarding pain and symptom management, goals of care, and anticipatory guidance regarding continuum of care and transition to hospice
== END 2020-12-05 10:01 | disposition home or self-care (01) ==
LOC: PC 10:00
PROVIDERS: ATTEND Nurse Practitioner Adult Health
DX: Z51.5 Encounter for palliative care (principal); G89.3 Neoplasm related pain (acute) (chronic); C57.02 Malignant neoplasm of left fallopian tube; C57.01 Malignant neoplasm of right fallopian tube; C79.9 Secondary malignant neoplasm of unspecified site; F41.9 Anxiety disorder, unspecified; R53.83 Other fatigue; I10 Essential (primary) hypertension; Z79.891 Long term (current) use of opiate analgesic; Z66 Do not resuscitate
CPT/HCPCS: 99349

== ENCOUNTER 2020-12-19 10:00 | Outpatient (CLI) | payer MEDICAID ==
--- NOTE | 2020-12-19 19:23 | CONSULTATION NOTE ---
Palliative Care Follow Up - Referral Referring Provider: Dr. Katy Fonseca Time of Visit: Referral setting: Home Referral Reason: Pain of neoplastic origin/Fallopian Tube CA - Information Sources Records reviewed: Previous records reviewed History/Review of Systems obtained from: Patient Exam limitations: Clinical condition (patient with STM deficits) - History of Present Illness Update Brief HPI Update: This is a rusty anxious 65-year-old woman with High-grade serous fallopian tube cancer, who has shown recurrence and progression of her cancer. She has had multiple treatments, and has known peritoneal implants to the right adjacent to sigmoid colon also peritoneal nodularity at the level of the cecum and left kidney. These correlate with patient's increasing pain, she has left upper thoracic /abdominal pain and right upper quadrant pain, Currently well controlled with methadone 2.5 mg twice daily and oxycodone 10 mg for breakthrough pain, currently using about 50 mg total in 24 hours. She has tolerated initiation of methadone well without any sedation or side effects, and reports she is feeling better overall. Patient with her most recent progression of disease on CT scan, was offered both clinical trial as well as chemotherapy, but given her poor tolerance she has opted to focus on quality of life, and supportive care. Patient continues with persistent low-grade nausea, despite transition off of morphine, she is needing ondansetron 3 times daily but reports good control with this. She did has had decreased intake but no weight loss, she attributes this to her high sugar intake which she has had since she quit drinking several years ago. She continues on MiraLAX for her constipation, she has stools on the looser side, which she feels keeps her pain under control. When she strains she has increased pain and discomfort. She appears hydrated, she does have underlying anxiety but currently controlled with her venlafaxine and alprazolam. She is sleeping well, but continues to prepare for her end-of-life despite being fairly functional at this point in time. She had spoken with [facility] volunteer, was concerned about the cost of the medications, after much discussion as far as options and control, she will pursue going through the steps and particularly in the context of moving on to hospice will free up some of her friends. Her most persistent symptom is fatigue, she is sleeping well but enjoys just being around home. She is very anxious about transitioning to hospice, given her long-term relationship with palliative care and oncology, in the context of this will continue as her attending. Past Medical History: Crohn's disease, rhinitis, generalized anxiety disorder, history of shingles, cataract surgery, rheumatoid arthritis, depression, history of tobacco/alcohol abuse. Social History - Living Situation Living arrangement: At home (Patient lives with her significant other Willie, they have been together for 15 years. He is now staying home on weekends, she is quite pleased with this, is hoping they will have some good time together but has not felt like going out much) Living Situation: With spouse/s.o. Support System: Patient is still independent, her sister Amy who causes her some distress, will be coming most likely to stay with her until end-of-life. She is very close this with her siblings, there are 5 of them total, she also has a son whom she is in frequent contact as well. Medications/Allergies - Medications Home Medications: Ambulatory Orders Medication Instructions Recorded Confirmed Multivitamin [Multivitamins] 1 cap PO DAILY 08/16/15 12/19/20 Zolpidem [Ambien] 7.5 mg PO QPM 09/21/19 12/19/20 Ondansetron [Zuplenz] 4 mg PO Q8HR PRN 09/22/19 12/19/20 Prochlorperazine Maleate 10 mg PO Q6HR PRN 09/22/19 12/19/20 Senna [Senokot] 1 tab PO BID PRN 09/22/19 12/19/20 polyethylene glycoL 3350 [Miralax] 17 gm PO BID 09/22/19 12/19/20 Alprazolam [Xanax] 0.5 mg PO Q6HR PRN MDD 6 10/04/19 12/19/20 Venlafaxine HCl [Venlafaxine HCl 225 mg PO DAILY 11/09/19 12/19/20 ER] Oxycodone HCl 10 - 20 mg PO Q4HR PRN 01/18/20 12/19/20 Omeprazole Magnesium 20 mg PO DAILY 04/29/20 12/19/20 Magnesium 250 mg PO DAILY 07/03/20 12/19/20 Methadone [Methadone Hcl] 2.5 mg PO BID 12/06/20 12/19/20 Naloxone HCl [Narcan] 4 mg NS ONCE PRN 12/06/20 12/19/20 Biotin 1 cap PO DAILY 12/19/20 12/19/20 - Allergies Allergies/Adverse Reactions: Allergies Allergy/AdvReac Type Severity Reaction Status Date / Time No Known Drug Allergies Allergy Verified 03/10/15 05:43 Review of Systems - Constitutional Constitutional: reports: Fatigue (remains persistent but improved off chemo), Weakness, Weight stable (160 reports most likely because she is eating lots of sugar). denies: Fever, Chills - Eyes Eyes: reports: Vision loss - Ears, Nose & Throat Ears, Nose & Throat: denies: Sore throat, Bleeding gums - Cardiovascular Cardiovascular: reports: Exertional dyspnea, Decr. exercise tolerance. denies: Palpitations, Chest pain (c/ some chest heaviness with anxiety attacks), Edema - Respiratory Respiratory: reports: SOB with exertion. denies: Cough, Wheezing, SOB at rest - Gastrointestinal Gastrointestinal: reports: Abdominal pain (increased left sided pain; now right recurrent but managed with current regimen), Nausea (persistent-needing ondansetron tid; manageable), Bloating, Poor appetite, Early satiety, Other (taste changes). denies: Constipation (following bowel program with results; keeps bowels loose as feels less pain vs straining), Reflux/heartburn (improved with use of omeprazole) - Genitourinary Genitourinary: reports: Frequency - Musculoskeletal Musculoskeletal: reports: Stiffness, Muscle weakness, Other (poor activity tolerance) - Integumentary Integumentary: reports: Dryness, Nail changes (cracked), Hair changes ( some hair thinning) - Neurological Neurological: reports: General weakness, Numbness (hands/feet), Memory problems (feels this continues to be frustrating and persistent; interfering with patient able to adhere to instructions) - Psychiatric Psychiatric: reports: Anxiety (feeling less anxious now has made decision). denies: Depression - Hematologic/Lymphatic Hematologic/Lymph: denies: Recurrent infections - All Other Systems All Other Systems: reports: Reviewed and negative Physical Exam - Vital Signs Pulse Rate: 97 Respiratory Rate: 18 O2 Saturation: 95 (ra @ rest) Blood Pressure: 128/70 - Physical Exam General Appearance: positive: No acute distress, Alert Eyes Bilateral: positive: Normal inspection, No scleral icterus ENT: negative: Dry mucous membranes Neck: positive: Trachea midline Cardiovascular: positive: Regular rate & rhythm Respiratory: positive: Breath sounds nml, Diminished in bases. negative: No respiratory distress (with activity feels worse), Wheezes, Rales, Rhonchi Abdomen: positive: Soft, Nml bowel sounds, Tenderness (left upper quadrant; new right upper quadrant both "under ribs"). negative: Mass Skin: positive: Pallor, Dryness Extremities: positive: No pedal edema (on exam) Neurologic/Psychiatric: positive: Oriented x3, Mood/affect nml, Weakness Palliative Care - POLST Patient has POLST: Yes POLST Status: DNR, Selective Treatment Pain: Pain improved, Location (see HPI), Severity (2/10) Tiredness/Fatigue: Moderate (4-6) Drowsiness/Sedation: Mild (1-3) Nausea: Moderate (4-6) Anorexia: Moderate (4-6) Dyspnea: Moderate (4-6) Depression: Mild (1-3) Anxiety: Moderate (4-6) Feelings of wellbeing/Perceived Quality of Life: Fair, Acceptable, Worsening Sleep: Sleeps well Constipation: No Performance Status: Patient does feel limited by her fatigue, but she is able to take the dogs out for short walks and manage her ADLs. She does find herself more sedentary, she likes watching TV and hanging out on the couch. She has had decreased energy for cooking, her sister is coming to provide support as well. - Palliative Care Discussion: Patient remains her fairly usual anxious self, but is doing fairly well overall. She is a piece with the decision she is made, but now is anxious regarding pursuing DWD. Long discussion regarding framing this more as an option, she certainly can choose to continue with allowing natural , discussed in the context of a slow decline versus a complication of her cancer, as far as expected outcomes. Patient is doing fairly well currently, but encouraged to transition to hospice team, needing that extra layer of support and corporate health consultant tony ilability. After much negotiating, she is very anxious about any kind of changes, will go ahead and agree to be her attending, as well as make joint visit with hospital medical center representative to transition support. Dr. Fonseca has agreed to be prescriber, director business intelligence will be supporting physician, will need to arrange for a visit to take next steps. Patient is feeling she wants to get everything in place, she did have some fairly negative experiences with her parents, and wants to make sure her family has a support they need as well as everything taking care of. Agreement for hospice admit next week, referral made. Impression and Recommendations - Palliative Care Impression: This is a rusty 65-year-old anxious woman with progressive high-grade fallopian tube cancer, with known worsening metastatic disease. She has chosen to focus on supportive care only, and is ready to transition to hospice team. Pain is currently controlled, though continues with persistent nausea managed with current regimen. Palliative care continue provide support for pain and symptom management, psychosocial support and anticipatory guidance until transition to hospice next week. Recommendations/Counseling Done: 1. Pain of neoplastic origin. Patient's pain has increased, transition from morphine to methadone has gone well. She is less groggy, though has not impacted her nausea much. She is currently on methadone 2.5 mg twice daily, will continue to titrate to effect. 2. Anxiety. Patient has fluctuating anxiety, is actually doing fairly well with her recent decision. She is currently on venlafaxine both for anxiety/depression and hot flashes. She is using the alprazolam intermittently with good response, she continues to have significant anxiety around her relationship with her sister, Amy. Supportive listening, and continued problem solving regarding this. 3. Fatigue. Patient continues with persistent fatigue, but is currently managing her ADLs and walking her dogs, she is always been very very active so this is been difficult to be more sedentary. Counseling provided to put in the context of her current trajectory of her disease. 4. Advanced care planning. Patient after much discussion is ready to transition to hospice team, arrangements made for visit next week. As she has had contact from volunteer from end-of-life [place], she will move forward with her DW due to request, will have hospice medical center representative the second physician and facilitate getting this to Dr. Fonseca. Anticipatory guidance provided, will update her POLST to comfort measures next visit. 45 minutes with greater than 50% of this done in counseling regarding pain and symptom management, anticipatory guidance, coordination with hospice team and oncology.
== END 2020-12-19 10:01 | disposition home or self-care (01) ==
LOC: PC 10:00
PROVIDERS: ATTEND Nurse Practitioner Adult Health
DX: Z51.5 Encounter for palliative care (principal); C57.00 Malignant neoplasm of unspecified fallopian tube; G89.3 Neoplasm related pain (acute) (chronic); K59.00 Constipation, unspecified; F41.9 Anxiety disorder, unspecified; R53.83 Other fatigue; R06.00 Dyspnea, unspecified; R63.0 Anorexia; R11.0 Nausea; Z66 Do not resuscitate
CPT/HCPCS: 99349